=== PATIENT | male | born 1940 | race Caucasian/White ===

== ENCOUNTER → 2019-04-20 12:49 | Outpatient (POV) | payer MEDICARE, OTHER, SELFPAY | PROVIDERS: Visit Provider Specialist | DX: M79.601 Pain in right arm (principal) | CPT/HCPCS: 95886; 95908 ==

== ENCOUNTER → 2019-05-06 11:17 | Outpatient (CLI) | payer MEDICARE, OTHER, SELFPAY ==
[2019-05-06 11:37] LABS: Basophils # 0.1 K/mm3 (0-0.2); Basophils % 0.8 % (0.1-2.0); Eosinophils # 0.1 K/mm3 (0.0-0.4); Eosinophils % 1.6 % (0.1-12.0); Hematocrit 40.6 % (42.0-52.0); Hemoglobin 13.5 g/dL (14.1-18.0); Lymphocytes # 1.9 K/mm3 (0.7-4.5); Lymphocytes % 25.4 % (10-50); Mean Corpuscular HGB Conc 33.3 g/dL (31.8-35.4); Mean Corpuscular Hemoglobin 29.3 pg (27.0-31.2); Mean Corpuscular Volume 88.2 fl (80-94); Mean Platelet Volume 9.4 fl (7.4-10.4); Monocytes # 0.5 K/mm3 (0.1-1.0); Monocytes % 7.3 % (1.7-9.3); Neutrophils # 4.8 K/mm3 (1.8-7.8); Platelet Count 305 K/mm3 (142-424); Red Cell Distribution Width 13.7 % (11.5-17.5); White Blood Count 7.3 K/mm3 (4.8-10.8)
[2019-05-06 12:26] LABS: Hemoglobin A1C 6.9 % (0.0-7.0)
[2019-05-06 13:25] LABS: Erythrocyte Sedimentation Rate 17 mm/hr (0-20)
[2019-05-06 13:33] LABS: Alanine Aminotransferase 22 U/L (12-78); Albumin Level 3.6 gm/dL (3.4-5.0); Albumin/Globulin Ratio 1.1 (1.1-1.8); Alkaline Phosphatase 56 U/L (46-116); Anion Gap 15.3 mEq/L (5-15); Aspartate Amino Transferase 16 U/L (15-37); Bilirubin,Total 0.5 mg/dL (0.2-1.0); Blood Urea Nitrogen 21 mg/dL (7-18); Calcium 8.7 mg/dL (8.5-10.1); Carbon Dioxide 25 mmol/L (21.0-32.0); Chloride 105 mmol/L (98-107); Creatinine,Serum 1.03 mg/dL (0.70-1.30); Estimated Glomerular Filt Rate 70 ml/min (>60); GFR (African American) 85 ML/MIN (>60); Globulin 3.4 gm/dl (1.3-3.2); Glucose 106 mg/dL (74-106); Potassium 4.3 mmoL/L (3.5-5.1); Sodium 141 mmol/L (136-145)
[2019-05-06 13:40] LABS: C-Reactive Protein < 0.2 mg/dL (0.0-0.9)
== END ==
PROVIDERS: Visit Provider Nurse Practitioner
DX: L02.611 Cutaneous abscess of right foot (principal); L03.031 Cellulitis of right toe; E11.8 Type 2 diabetes mellitus with unspecified complications; Z79.84 Long term (current) use of oral hypoglycemic drugs
CPT/HCPCS: 36415; 80053; 83036; 85025; 85651; 86140

== ENCOUNTER → 2019-07-01 11:51 | Outpatient (CLI) | payer MEDICARE, OTHER, SELFPAY | PROVIDERS: Visit Provider Nurse Practitioner | DX: E11.8 Type 2 diabetes mellitus with unspecified complications (principal) | CPT/HCPCS: 87070; 87077; 87186; 87205 ==

== ENCOUNTER 2019-11-23 13:03 | Emergency (ER) | payer MEDICARE, OTHER, SELFPAY ==
--- NOTE | 2019-11-23 13:03 | ECG_ITS ---
APPROVED REPORT Exam: Resting ECG HR:74 bpm ECG Measurements Heart Rate 74 AXES ID 232 P 71 QRSd 102 QRS 64 QT 418 T 91 QTc 463 <Conclusion> Sinus rhythm with 1st degree AV block with premature atrial complexes Minimal voltage criteria for LVH, may be normal variant Nonspecific ST and T wave abnormality Prolonged QT Abnormal ECG Electronically signed by : Kevon Coleman, 11/23/2019 17:46:08
[2019-11-23 13:04] VITALS: BP 211/99; PULSE 66; RESP 18; TEMP 36.8; O2SAT 99; BMI 27.3
--- NOTE | 2019-11-23 13:06 | XR_ITS ---
PROCEDURE: XR CHEST PORTABLE CLINICAL HISTORY: chest pain COMPARISON: CXR1 CHEST-PORTABLE from 12/18/2015 CXR1 CHEST-PORTABLE from 04/13/2016 XR CHEST PORTABLE from 04/03/2019 FINDINGS: There is mild cardiomegaly without failure. There is tortuosity/ectasia of the descending thoracic aorta. The lungs are clear without infiltrates, suspicious nodules, or pleural effusions. Mild degenerative changes of the shoulders IMPRESSION: Cardiomegaly with tortuosity/ectasia of the descending aorta otherwise negative Dictated by: Neto Saba MD 11/23/2019 13:19 Electronically signed by Neto Saba MD in [place] 11/23/2019 13:19
[2019-11-23 13:18] LABS: Basophils # 0.1 K/mm3 (0-0.2); Basophils % 0.7 % (0.1-2.0); Eosinophils # 0.2 K/mm3 (0.0-0.4); Eosinophils % 2.5 % (0.1-12.0); Hematocrit 41.4 % (42.0-52.0); Hemoglobin 13.9 g/dL (14.1-18.0); Lymphocytes # 3.8 K/mm3 (0.7-4.5); Lymphocytes % 45.5 % (10-50); Mean Corpuscular HGB Conc 33.5 g/dL (31.8-35.4); Mean Corpuscular Hemoglobin 29.6 pg (27.0-31.2); Mean Corpuscular Volume 88.3 fl (80-94); Mean Platelet Volume 8.5 fl (7.4-10.4); Monocytes # 0.5 K/mm3 (0.1-1.0); Monocytes % 5.7 % (1.7-9.3); Neutrophils # 3.8 K/mm3 (1.8-7.8); Neutrophils % 45.6 % (37.0-80.0); Platelet Count 330 K/mm3 (142-424); Red Blood Count 4.69 M/mm3 (4.60-6.20); White Blood Count 8.4 K/mm3 (4.8-10.8)
[2019-11-23 13:19] LABS: Chloride 101 mmol/L (98-107); Potassium 4.3 mmoL/L (3.5-5.1); Sodium 138 mmol/L (136-145)
[2019-11-23 13:22] LABS: Anion Gap 16.3 mEq/L (5-15); Blood Urea Nitrogen 18 mg/dl (9-20); Calcium 8.7 mg/dl (8.4-10.2); Carbon Dioxide 25 mmol/L (22.0-30.0); Creatinine Clearance Estimated 71 mL/min (50-200); Estimated Glomerular Filt Rate 82 ml/min (>60); GFR (African American) 99 ML/MIN (>60); Glucose 142 mg/dl (74-100)
[2019-11-23 13:36] LABS: Troponin I < 0.01 ng/ml (0.00-0.034)
[2019-11-23 13:37] VITALS: BP 168/89; PULSE 64; RESP 18; O2SAT 96
[2019-11-23 14:37] VITALS: BP 175/82; PULSE 63; RESP 20; O2SAT 96
--- NOTE | 2019-11-23 16:39 | HMH.EDCP ---
ED Disposition Clinical Impression: Chest pain, Atypical chest pain, Costalchondritis Disposition: Home, Self-Care Condition on Discharge: Good Instructions: DI for Chronic Pain -- Adult Additional Instructions: Please follow-up with primary care. Referrals: Neftaly Henderson MD [Primary Care Provider] - - Critical Care Critical Care Time: No Attestation: On 11/23/19, the high probability of a clinically significant, sudden or life threatening deterioration of the following system(s) required my full and direct attention, intervention and personal management. The time I documented below is in addition to time spent performing reported procedures but includes the following listed in this critical care notation. Medical Decision Making - Medical Records Medical records reviewed: Yes: I reviewed the patient's medical records. - Samson Inquiry Pt receiving controlled substance: No Vital Signs: 11/23/19 13:04 11/23/19 13:37 11/23/19 14:37 Temperature 98.2 F Temperature Source Oral Pulse Rate [Right] 66 64 63 Respiratory Rate 18 18 20 Blood Pressure [Right Arm] 211/99 H 168/89 H 175/82 H Blood Pressure Mean [Right Arm] 136 115 113 Blood Pressure Source [Right Arm] Automatic Cuff Blood Pressure Position [Right Arm] Supine 02 Sat by Pulse Oximetry 99 96 96 Oxygen Delivery Method Room Air Room Air - Lab Data Lab results reviewed: Yes: I reviewed the patient's lab results. Lab Results 11/23/19 13:05: WBC 8.4, RBC 4.69, Hgb 13.9 L, Hct 41.4 L, MCV 88.3, MCH 29.6, MCHC 33.5, RDW 14.0, Plt Count 330, MPV 8.5, Neut % (Auto) 45.6, Lymph % (Auto) 45.5, [place] % (Auto) 5.7, Eos % (Auto) 2.5, Baso % (Auto) 0.7, Neut # (Auto) 3.8, Lymph # (Auto) 3.8, [place] # (Auto) 0.5, Eos # (Auto) 0.2, Baso # (Auto) 0.1 11/23/19 13:05: Sodium 138, Potassium 4.3, Chloride 101, Carbon Dioxide 25, Anion Gap 16.3 H, BUN 18, Creatinine 0.90, Estimated Creat Clear 71, Estimated GFR 82, Est GFR ( Amer) 99, Glucose 142 H, Calcium 8.7, Troponin I < 0.01 Result diagrams: 11/23/19 13:05 11/23/19 13:05 Orders (Tests/Meds): ORDERS Category Date Time Status Troponin I Q3H Lab 11/23/19 16:14 Received Troponin I Q3H Lab 11/23/19 19:15 Ordered - Radiology Data #1 Image(s): Chest Preliminary Findings: Normal/NAD - ECG Data Tracing #1 I reviewed this ECG and interpreted as documented below: Normal Sinus Rhythm: Yes Chest Pain HPI - General Chief Complaint: Chest Pain Stated Complaint: chest pain Time Seen by Provider: 11/23/19 16:39 Mode of Arrival: Ambulatory Source of Information: Patient Limitations: No Limitations Description of Symptoms (Recalled from ER Triage Doc. by RN): C/O left sided CP that began 30 minutes ago, denies radiation or any associated s/s. - History of Present Illness HPI narrative: A 78-year-old gentleman presents to the ED with some left-sided upper abdominal pain and left-sided chest pain. Patient states that this pain is been going on for quite some time but does state that it progressively got worse today and is why he presented here to the emergency department. Patient denies any overt left-sided chest pain or shortness of breath or diaphoresis or radiation. He states that the pain is localized to that area and he classifies this pain as a sharp sensation. He states the pain is about 4 out of 10. He states exacerbating factors include increasing intrathoracic and increasing intra-abdominal pressures. He also states pushing movements causes this pain and reproduces his pain as well. Patient also states that the alleviating factors include rest.Patient denies any recent cough or shortness of breath, patient denies any sore throat or headache, patient denies any loss of taste or smell, patient denies any malaise or fatigue, patient denies any abdominal pain nausea vomiting or diarrhea. - Related Data Home Medications Medication Instructions Recorded Confirmed
[2019-11-23 16:50] VITALS: BP 185/90; PULSE 66; RESP 16; TEMP 36.9; O2SAT 96
[2019-11-23 17:05] LABS: Troponin I < 0.01 ng/ml (0.00-0.034)
== END 2019-11-23 16:52 | disposition home or self-care (01) ==
PROVIDERS: Emergency Provider Family Medicine; PCP Family Medicine
DX: M94.0 Chondrocostal junction syndrome [Tietze] (principal); E11.9 Type 2 diabetes mellitus without complications; E78.5 Hyperlipidemia, unspecified; I10 Essential (primary) hypertension; Z79.899 Other long term (current) drug therapy
CPT/HCPCS: 71045; 80048; 84484; 85025; 93005; 99283; 99284

== ENCOUNTER 2020-04-24 12:21 | Emergency (ER) | payer MEDICARE, OTHER, SELFPAY ==
[2020-04-24 12:37] VITALS: BP 185/86; PULSE 66; RESP 17; TEMP 36.6; O2SAT 99; BMI 27.2
--- NOTE | 2020-04-24 12:44 | XR_ITS ---
PROCEDURE: XR CHEST PORTABLE CLINICAL HISTORY: dizziness Dizziness and weakness COMPARISON: CR CXR1 CHEST-PORTABLE from 04/13/2016 CR XR CHEST PORTABLE from 04/03/2019 CR XR CHEST PORTABLE from 11/23/2019 FINDINGS: The cardiomediastinal silhouette and pulmonary vascularity are within normal limits. The lungs are clear without infiltrates, suspicious nodules, or pleural effusions. No acute bony abnormalities. IMPRESSION: No acute findings. Dictated by: Neto Saba MD 04/25/2020 05:36 Neto Saba MD in [place] 04/25/2020 05:36
--- NOTE | 2020-04-24 12:47 | HMH.EDGENADL ---
ED Disposition Clinical Impression: Vertigo Disposition: Home, Self-Care Condition on Discharge: Good Instructions: DI for Vertigo Additional Instructions: Antivert as prescribed. Your primary care provider tomorrow for follow-up. Return if severe dizziness, unable to walk, persistent vomiting, or any new symptoms such as difficulty with vision, speaking, or numbness or weakness of arms or legs. Prescriptions: Meclizine HCl [Antivert 25mg tablet] 25 mg PO TIDP PRN #15 tab PRN Reason: Vertigo Prescription Printed Referrals: Neftaly Henderson MD [Primary Care Provider] - - Critical Care Critical Care Time: No Attestation: On , the high probability of a clinically significant, sudden or life threatening deterioration of the following system(s) required my full and direct attention, intervention and personal management. The time I documented below is in addition to time spent performing reported procedures but includes the following listed in this critical care notation. Medical Decision Making - Samson Inquiry Pt receiving controlled substance: No Vital Signs: 04/24/20 12:37 04/24/20 12:55 04/24/20 14:25 Temperature 97.8 F Temperature Source Oral Pulse Rate [Right Radial] 66 57 L 63 Respiratory Rate 17 20 16 Blood Pressure [Right Arm] 185/86 H 187/90 H 206/98 H Blood Pressure Mean [Right Arm] 119 122 134 Blood Pressure Source [Right Arm] Automatic Cuff Automatic Cuff Blood Pressure Position [Right Arm] Sitting Sitting 02 Sat by Pulse Oximetry 99 99 99 Oxygen Delivery Method Room Air Room Air 04/24/20 15:14 04/24/20 15:30 Temperature Temperature Source Pulse Rate [Right Radial] 58 L 83 Respiratory Rate 18 23 Blood Pressure [Right Arm] 195/92 H 195/92 H Blood Pressure Mean [Right Arm] 126 126 Blood Pressure Source [Right Arm] Automatic Cuff Automatic Cuff Blood Pressure Position [Right Arm] Sitting Sitting 02 Sat by Pulse Oximetry 99 93 L Oxygen Delivery Method Room Air - Lab Data Lab Results 04/24/20 12:00: WBC 8.0, RBC 4.76, Hgb 13.5 L, Hct 43.0, MCV 90.3, MCH 28.4, MCHC 31.5 L, RDW 13.6, Plt Count 313, MPV 8.6, Neut % (Auto) 49.3, Lymph % (Auto) 40.5, [place] % (Auto) 7.2, Eos % (Auto) 2.2, Baso % (Auto) 0.8, Neut # (Auto) 3.9, Lymph # (Auto) 3.2, [place] # (Auto) 0.6, Eos # (Auto) 0.2, Baso # (Auto) 0.1 04/24/20 12:00: Sodium 140, Potassium 4.5, Chloride 105, Carbon Dioxide 27, Anion Gap 12.5, BUN 27 H, Creatinine 1.00, Estimated Creat Clear 70, Estimated GFR 72, Est GFR ( Amer) 87, Glucose 139 H, Calcium 9.4, Total Bilirubin 0.5, AST 26, ALT 17, Alkaline Phosphatase 78, Troponin I < 0.01, Total Protein 7.7, Albumin 4.3, Globulin 3.4 H, Albumin/Globulin Ratio 1.3 04/24/20 15:23: Troponin I < 0.01 Result diagrams: 04/24/20 12:00 04/24/20 12:00 Orders (Tests/Meds): ED MEDICATIONS Discontinued Medications Generic Name Dose Route Start Last Admin Trade Name Freq PRN Reason Stop Dose Admin Iopamidol 100 ml 04/24/20 13:35 04/24/20 13:36 Iopamidol-370 (76%);100ml Bottle IV 04/24/20 13:36 100 ml ONCE ONE Administration Meclizine HCl 25 mg 04/24/20 13:41 04/24/20 14:16 Meclizine 25mg Tablet PO 04/24/20 13:42 25 mg ONCE ONE Administration Sodium Chloride 50 ml 04/24/20 13:35 04/24/20 13:36 0.9 % Sodium Chloride 50 Ml Vial IV 04/24/20 13:36 50 ml ONCE ONE Administration Sodium Chloride 10 ml 04/24/20 13:35 04/24/20 13:36 Sodium Chloride 0.9% 10ml Syr (Rad Only) IV 04/24/20 13:36 10 ml ONCE ONE Administration ORDERS Category Date Time Status CT angio head Stat Cat Scan 04/24/20 13:[address] angio neck Stat Cat Scan 04/24/20 13:[address] head/brain wo con Stat Cat Scan 04/24/20 13:08 Taken XR chest portable Stat Exams 04/24/20 12:44 Taken Troponin I Q3H Lab 04/24/20 18:45 Ordered Urinalysis and Microscopic Stat Lab 04/24/20 15:37 Ordered - Radiology Data #1 Image(s): Chest Image Reviewed: Yes
[2020-04-24 12:55] VITALS: BP 187/90; PULSE 57; RESP 20; O2SAT 99
[2020-04-24 12:55] LABS: Basophils # 0.1 K/mm3 (0-0.2); Basophils % 0.8 % (0.1-2.0); Eosinophils # 0.2 K/mm3 (0.0-0.4); Eosinophils % 2.2 % (0.1-12.0); Hemoglobin 13.5 g/dL (14.1-18.0); Lymphocytes # 3.2 K/mm3 (0.7-4.5); Lymphocytes % 40.5 % (10-50); Mean Corpuscular HGB Conc 31.5 g/dL (31.8-35.4); Mean Corpuscular Hemoglobin 28.4 pg (27.0-31.2); Mean Corpuscular Volume 90.3 fl (80-94); Mean Platelet Volume 8.6 fl (7.4-10.4); Monocytes # 0.6 K/mm3 (0.1-1.0); Monocytes % 7.2 % (1.7-9.3); Neutrophils # 3.9 K/mm3 (1.8-7.8); Neutrophils % 49.3 % (37.0-80.0); Platelet Count 313 K/mm3 (142-424); Red Blood Count 4.76 M/mm3 (4.60-6.20); Red Cell Distribution Width 13.6 % (11.5-17.5)
[2020-04-24 12:58] LABS: Chloride 105 mmol/L (98-107); Sodium 140 mmol/L (136-145)
[2020-04-24 12:59] LABS: Potassium 4.5 mmoL/L (3.5-5.1)
[2020-04-24 13:01] LABS: Alanine Aminotransferase 17 U/L (12-78); Albumin Level 4.3 g/dl (3.5-5.0); Albumin/Globulin Ratio 1.3 (1.1-1.8); Alkaline Phosphatase 78 U/L (38-126); Anion Gap 12.5 mEq/L (5-15); Aspartate Amino Transferase 26 U/L (17-59); Bilirubin,Total 0.5 mg/dl (0.2-1.3); Blood Urea Nitrogen 27 mg/dl (9-20); Carbon Dioxide 27 mmol/L (22.0-30.0); Creatinine Clearance Estimated 70 mL/min (50-200); Estimated Glomerular Filt Rate 72 ml/min (>60); GFR (African American) 87 ML/MIN (>60); Globulin 3.4 g/dL (1.3-3.2); Total Protein,Serum 7.7 g/dl (6.3-8.2)
[2020-04-24 13:02] LABS: Calcium 9.4 mg/dl (8.4-10.2); Glucose 139 mg/dl (74-100)
--- NOTE | 2020-04-24 13:05 | ECG_ITS ---
APPROVED REPORT Exam: Resting ECG HR:55 bpm ECG Measurements Heart Rate 55 AXES MS 250 P 61 QRSd 104 QRS 52 QT 484 T 78 QTc 463 Conclusion Sinus bradycardia with 1st degree AV block with premature supraventricular complexes Otherwise normal ECG Electronically signed by : Neftaly Jain, 04/26/2020 19:38:31
--- NOTE | 2020-04-24 13:08 | CT_ITS ---
PROCEDURE: CT HEAD/BRAIN WO CON CLINICAL INDICATION: vertigo Vertigo, weakness COMPARISON: CT CT HEAD/BRAIN WO CON from 04/03/2019 TECHNIQUE: Axial images obtained. All CT scans at the facility use one or more dose reduction, viz: automated exposure control, ma/kV adjustment per patient size (including targeted exams where dose is matched to indication, i.e. head), or iterative reconstruction technique. FINDINGS: No midline shift, mass effect, intracranial hemorrhage, hydrocephalus, or extra-axial fluid collection is evident. There is generalized atrophy with hypoattenuation of the periventricular white matter consistent with microangiopathic changes. The calvarium has an unremarkable appearance. No mastoid effusion. No sinus air-fluid level. IMPRESSION: No acute intracranial finding Dictated by: Neto Saba MD 04/25/2020 07:25 Neto Saba MD in [place] 04/25/2020 07:25
--- NOTE | 2020-04-24 13:09 | CT_ITS ---
Procedure: CT ANGIO NECK CT ANGIO HEAD CLINICAL HISTORY: vertigo COMPARISON: CT CT ANGIO HEAD from 04/24/[address] HEAD/BRAIN WO CON from 04/24/2020 TECHNIQUE: IV Contrast: 100ml Isovue 370 Axial images obtained with sagittal and coronal reformats. All CT scans at the facility use one or more dose reduction, viz: automated exposure control, ma/kV adjustment per patient size (including targeted exams where dose is matched to indication, i.e. head), or iterative reconstruction technique. FINDINGS: CTA neck. No stenosis dissection or occlusion of the carotids. The right vertebral is hypoplastic with dominant left vertebral. CTA head: No stenosis or occlusion. There is mild ectasia of the cavernous portion of the carotids with some calcific plaque but no significant stenosis. No aneurysm or arteriovenous malformation or major intracranial occlusive process. There is some minimal plaque within the carotid bulbs without stenosis. No enhancing lesions.. There is generalized atrophy with hypoattenuation of the periventricular white matter consistent with microangiopathic changes. There is some increased density in the left fossa Rosenmuller which may be due to nondistention. Direct visualization may confirm. IMPRESSION: No evidence of stenosis or occlusion. No aneurysm or dissection. Dictated by: Neto Saba MD 04/25/2020 07:33 Neto Saba MD in [place] 04/25/2020 07:33
[2020-04-24 13:16] LABS: Troponin I < 0.01 ng/ml (0.00-0.034)
--- NOTE | 2020-04-24 13:16 | PC.NURSE ---
Patient going to radiology
[2020-04-24 14:25] VITALS: BP 206/98; PULSE 63; RESP 16; O2SAT 99
[2020-04-24 14:59] LABS: Microscopic, Urine URINE MICROSCOPIC (MICROSCOPIC)
[2020-04-24 15:14] VITALS: BP 195/92; PULSE 58; RESP 18; O2SAT 99
[2020-04-24 15:30] VITALS: BP 195/92; PULSE 83; RESP 23; O2SAT 93
[2020-04-24 15:58] LABS: Troponin I < 0.01 ng/ml (0.00-0.034)
[2020-04-24 16:37] VITALS: BP 185/87; PULSE 83; RESP 15; TEMP 36.6; O2SAT 98
[2020-04-24 18:48] LABS: Appearance,Urine CLEAR (Clear); Bilirubin,Urine Negative (Negative); Blood, Urine Negative (Negative); Color,Urine YELLOW (Yellow); Glucose,Urine (UA) Negative (Negative); Ketones,Urine Negative (Negative); Leukocyte Esterase,Urine Negative (Negative); Nitrate,Urine Negative (Negative); Protein,Urine Negative (Negative); Specific Gravity, Urine 1.015 (1.005-1.030); Urobilinogen,Urine 0.2 EU/dl (0.2)
== END 2020-04-24 16:38 | disposition home or self-care (01) ==
PROVIDERS: Emergency Provider Emergency Medicine; PCP Family Medicine
DX: R42 Dizziness and giddiness (principal); I10 Essential (primary) hypertension; E78.5 Hyperlipidemia, unspecified; E11.9 Type 2 diabetes mellitus without complications; Z79.84 Long term (current) use of oral hypoglycemic drugs; Z79.899 Other long term (current) drug therapy
CPT/HCPCS: 70450; 70496; 70498; 71045; 80053; 81001; 84484; 85025; 93005; 99283; Q9967

== ENCOUNTER 2020-06-07 09:02 | Emergency (ER) | payer MEDICARE, OTHER, SELFPAY ==
[2020-06-07 09:10] VITALS: BP 107/76; PULSE 77; RESP 19; TEMP 36.3; O2SAT 96; BMI 27.2
--- NOTE | 2020-06-07 09:39 | HMH.EDUTC ---
[facility] [place] Disposition Clinical Impression: Exposure to COVID-19 virus Disposition: Home, Self-Care Condition on Discharge: Good Instructions: DI for COVID-19 (Suspected or Confirmed ), Coronavirus Disease 2019, Preventing the Spread of Coronavirus Discharge Instructions Additional Instructions: *Monitor Temp, Over the counter Motrin or Tylenol as directed/as needed Tylenol every 4 hours and Motrin every 6 hours (as long as your family doctor has told you that you can take it) for fever or pain. and straight to ER if unable to lower temp less than 101.0 after medication given Follow up IMMEDIATELY for new or worsening symptoms or no Noticeable improvement over the next 48-72 hours. 911 for difficulty breathing or swallowing You were tested for today for COVID19 your test result should be back in the next 24-48 hours, you may call to the [facility] to see if your test results are back in the next 48 hours [phone] [facility] hours are 9am-9pm You was given a handout with instructions for Self Quarantine and Self isolation for while you wait on test results and what to do if they are positive If you are positive the Health Dept will be contacting you also Referrals: Neftaly Henderson MD [Primary Care Provider] - As needed Time of Disposition: 09:41 Medical Decision Making - Samson Inquiry Pt receiving controlled substance: No Samson was queried for this patient: No Vital Signs: 06/07/20 09:10 Temperature 97.4 F L Temperature Source Oral Pulse Rate [Right Brachial] 77 Respiratory Rate 19 Blood Pressure [Right Arm] 107/76 L Blood Pressure Mean [Right Arm] 86 Blood Pressure Source [Right Arm] Automatic Cuff Blood Pressure Position [Right Arm] Sitting 02 Sat by Pulse Oximetry 96 Oxygen Delivery Method Room Air Orders (Tests/Meds): ORDERS Category Date Time Status Covid-19 Nasal PCR Sendout P&C Stat Lab 06/07/20 09:09 Ordered [facility] HPI - General Stated complaint: Covid test Time Seen by Provider: 06/07/20 09:39 Mode of Arrival: Ambulatory Source of Information: Patient Limitations: No Limitations Description of Symptoms (Recalled from Triage Doc. by RN): COVID D/T EXPOSURE; DENIES SYMPTOMS HEENT Symptoms (Recalled from RN notes): No Resp Symptoms (Recalled from RN notes): No Skin Symptoms (Recalled from RN notes): No MS Symptoms (Recalled from RN notes): No Functional Status (Recalled from RN notes): WNL - History of Present Illness Provider Complaint: Patient states that he was recently around someone that has since tested positive for COVID States that he is not having any symptoms but wanted to get tested - Related Data Home Medications Medication Instructions Recorded Confirmed Atorvastatin Calcium [Lipitor 10mg 10 mg PO DAILY 04/03/19 07/15/19 Tab] Loratadine [Claritin 10mg 10 mg PO DAILY 04/03/19 07/15/19 Tablet] Metformin HCl [Metformin 1000mg 1,000 mg PO BID 04/03/19 07/15/19 Tablets] Omeprazole 20 mg PO DAILY 04/03/19 07/15/19 atenoloL [Atenolol 50mg Tab] 50 mg PO DAILY 04/03/19 07/15/19 glipiZIDE [Glipizide] 10 mg PO DAILY 04/03/19 07/15/19 lisinopril 10 mg tablet 10 mg PO tab 05/06/19 07/15/19 Previous Rx's Medication Instructions Recorded clindamycin HCl 300 mg capsule 300 mg PO TID 14 Days #42 cap 07/01/19 mupirocin 2 % topical ointment 1 applic TOPICAL TID #15 g 07/01/19 Meclizine HCl [Antivert 25mg 25 mg PO TIDP PRN #15 tab 04/24/20 tablet] Allergies Allergy/AdvReac Type Severity Reaction Status Date / Time No Known Allergies Allergy Verified 04/24/20 12:43 - Worker's Comp Is this a Worker's Comp case?: No [facility] History - Hepatitis A Screen Drug use history?: No High risk sexual behaviors?: No History of sexually transmitted infection?: No Currently employed?: No Childcare worker?: No Do you have indoor plumbing?: Yes Do you have electricity?: Yes Attestation statement:: This patient has been screened for Hepatitis A risk factors. I h
[2020-06-07 09:41] VITALS: BP 107/76; PULSE 77; RESP 19; TEMP 36.3; O2SAT 96
[2020-06-08 08:43] LABS: Covid-19 Nasal PCR Sendout P&C NEGATIVE
== END 2020-06-07 09:48 | disposition home or self-care (01) ==
PROVIDERS: Emergency Provider Nurse Practitioner; PCP Family Medicine
DX: Z20.822 Contact with and (suspected) exposure to COVID-19 (principal); I10 Essential (primary) hypertension; E78.5 Hyperlipidemia, unspecified; E11.9 Type 2 diabetes mellitus without complications; Z87.891 Personal history of nicotine dependence; Z79.899 Other long term (current) drug therapy; Z79.84 Long term (current) use of oral hypoglycemic drugs
CPT/HCPCS: G0463; 99202; U0004

== ENCOUNTER 2021-05-18 12:52 | Emergency (ER) | payer OTHER, MEDICARE, SELFPAY ==
[2021-05-18 13:32] VITALS: BP 172/93; RESP 18; TEMP 36.4; O2SAT 100; BMI 27.2
[2021-05-18 13:38] LABS: Basophils # 0.1 K/mm3 (0-0.2); Basophils % 0.8 % (0.1-2.0); Eosinophils # 0.2 K/mm3 (0.0-0.4); Eosinophils % 3.8 % (0.1-12.0); Hematocrit 43.2 % (42.0-52.0); Hemoglobin 13.9 g/dL (14.1-18.0); Lymphocytes # 2.8 K/mm3 (0.7-4.5); Lymphocytes % 44.4 % (10-50); Mean Corpuscular HGB Conc 32.1 g/dL (31.8-35.4); Mean Corpuscular Hemoglobin 29.8 pg (27.0-31.2); Mean Corpuscular Volume 92.9 fl (80-94); Mean Platelet Volume 9.9 fl (7.4-10.4); Monocytes # 0.4 K/mm3 (0.1-1.0); Monocytes % 5.6 % (1.7-9.3); Neutrophils # 2.9 K/mm3 (1.8-7.8); Neutrophils % 45.4 % (37.0-80.0); Platelet Count 327 K/mm3 (142-424); Red Blood Count 4.65 M/mm3 (4.60-6.20); Red Cell Distribution Width 14.2 % (11.5-17.5); White Blood Count 6.3 K/mm3 (4.8-10.8)
[2021-05-18 13:48] LABS: Chloride 103 mmol/L (98-107); Potassium 3.9 mmoL/L (3.5-5.1); Sodium 140 mmol/L (136-145)
[2021-05-18 13:50] LABS: Blood Urea Nitrogen 36 mg/dl (9-20); Creatinine Clearance Estimated 53 mL/min (50-200); Estimated Glomerular Filt Rate 53 ml/min (>60); GFR (African American) 64 ML/MIN (>60)
[2021-05-18 13:51] LABS: Alanine Aminotransferase 18 U/L (12-78); Albumin Level 4.4 g/dl (3.5-5.0); Albumin/Globulin Ratio 1.4 (1.1-1.8); Alkaline Phosphatase 67 U/L (38-126); Anion Gap 15.9 mEq/L (5-15); Aspartate Amino Transferase 28 U/L (17-59); Bilirubin,Total 0.5 mg/dl (0.2-1.3); Calcium 8.7 mg/dl (8.4-10.2); Carbon Dioxide 25 mmol/L (22.0-30.0); Globulin 3.1 g/dL (1.3-3.2); Glucose 221 mg/dl (74-100); Total Protein,Serum 7.5 g/dl (6.3-8.2)
[2021-05-18 13:54] LABS: Magnesium 0.9 mg/dl (1.6-2.3)
--- NOTE | 2021-05-18 13:55 | PC.NURSE ---
mag level 0.9 called to david michael
[2021-05-18 14:07] LABS: Acetone, Serum (Rapid) None Detected (None Detect)
--- NOTE | 2021-05-18 14:08 | PC.NURSE ---
Took a BS finger stick was 189 blood sugar
--- NOTE | 2021-05-18 14:08 | HMH.EDGENADL ---
ED Disposition Clinical Impression: Peripheral neuropathy, Uncontrolled diabetes mellitus with hyperglycemia, Hypomagnesemia Disposition: Home, Self-Care Condition on Discharge: Good Instructions: Diabetes, General (Alternative Therapy), DI for Peripheral Neuropathy Additional Instructions: Please follow up with your primary care physician for further management in 2-3 days. Please continue to monitor your sugar levels closely. We discussed the importance of glucose/sugar control please discuss with your primary care physician regarding elevated sugars. Please discuss with your primary care physician regarding starting neuropathic medication for your peripheral neuropathy. If worsening symptoms please return to the ED. Referrals: Neftaly Henderson MD [Primary Care Provider] - Time of Disposition: 14:40 - Critical Care Critical Care Time: No Attestation: On 05/18/21, the high probability of a clinically significant, sudden or life threatening deterioration of the following system(s) required my full and direct attention, intervention and personal management. The time I documented below is in addition to time spent performing reported procedures but includes the following listed in this critical care notation. Medical Decision Making - Medical Records Medical records reviewed: Yes: I reviewed the patient's medical records. - Samson Inquiry Pt receiving controlled substance: No Vital Signs: 05/18/21 13:32 05/18/21 14:37 Temperature 97.6 F 98.3 F Temperature Source Oral Oral Pulse Rate 65 Respiratory Rate 18 18 Blood Pressure 145/75 H Blood Pressure [Right Arm] 172/93 H Blood Pressure Mean [Right Arm] 119 Blood Pressure Source Automatic Cuff Blood Pressure Source [Right Arm] Automatic Cuff Blood Pressure Position Supine Blood Pressure Position [Right Arm] Supine 02 Sat by Pulse Oximetry 100 Oxygen Delivery Method Room Air Room Air - Lab Data Lab results reviewed: Yes: I reviewed the patient's lab results. Lab Results 05/18/21 13:17: WBC 6.3, RBC 4.65, Hgb 13.9 L, Hct 43.2, MCV 92.9, MCH 29.8, MCHC 32.1, RDW 14.2, Plt Count 327, MPV 9.9, Neut % (Auto) 45.4, Lymph % (Auto) 44.4, [place] % (Auto) 5.6, Eos % (Auto) 3.8, Baso % (Auto) 0.8, Neut # (Auto) 2.9, Lymph # (Auto) 2.8, [place] # (Auto) 0.4, Eos # (Auto) 0.2, Baso # (Auto) 0.1 05/18/21 13:17: Sodium 140, Potassium 3.9, Chloride 103, Carbon Dioxide 25, Anion Gap 15.9 H, BUN 36 H, Creatinine 1.30 H, Estimated Creat Clear 53, Estimated GFR 53 L, Est GFR ( Amer) 64, Glucose 221 H, Calcium 8.7, Magnesium 0.9 L, Total Bilirubin 0.5, AST 28, ALT 18, Alkaline Phosphatase 67, Total Protein 7.5, Albumin 4.4, Globulin 3.1, Albumin/Globulin Ratio 1.4 05/18/21 13:17: Acetone Level None detected Result diagrams: 05/18/21 13:17 05/18/21 13:17 Medical Decision Narrative: Mr. White is a 80-year-old male with past medical history for uncontrolled diabetes and LE numbness who presents to the emergency department with tingling in his arms bilaterally and associated intermittent periods of dizziness. Patient is afebrile and hemodynamically stable on arrival. Patient has no focal deficits on exam. Differentials to consider but not limited to include; peripheral neuropathy, metabolic/electrolyte derangement, low suspicion for CVA given distribution of symptoms will not investigate further, uncontrolled diabetes. Basic labs, mg remarkable for 1.0 no other electrolyte abnormalities. Upon reassessment patient currently does not have symptoms. Patient is instructed to fu w/ his primary care team for further management regarding this. Patient appropriate for outpatient management. Patient also instructed to drink plenty of fluid and to eat 3 balanced meals a day. Patient discharged in stable condition. General Adult HPI - General Chief complaint: Dizziness Stated complaint: numbness , tingling, dizzines Time Seen by Provider: 05/18/21 13:35 Mode of Arrival: EMS Source o
[2021-05-18 14:37] VITALS: BP 145/75; PULSE 65; RESP 18; TEMP 36.8; O2SAT 99
== END 2021-05-18 14:37 | disposition home or self-care (01) ==
PROVIDERS: Emergency Provider Student in an Organized Health Care Education/Training Program; PCP Family Medicine
DX: G62.9 Polyneuropathy, unspecified (principal); E11.65 Type 2 diabetes mellitus with hyperglycemia; I10 Essential (primary) hypertension; E78.5 Hyperlipidemia, unspecified; Z79.899 Other long term (current) drug therapy
CPT/HCPCS: 80053; 82009; 83735; 85025; 99282

== ENCOUNTER 2021-07-03 17:39 | Emergency (ER) | payer MEDICARE, SELFPAY ==
[2021-07-03 16:53] VITALS: BP 192/100; PULSE 96; RESP 20; TEMP 36.6; O2SAT 98; BMI 25.8
--- NOTE | 2021-07-03 17:06 | XR_ITS ---
PROCEDURE INFORMATION: Exam: XR Right Knee Exam date and time: 07/03/2021 5:06 PM Age: 80 years old Clinical indication: Pain; Knee; Right; Prior surgery; Surgery date: 6+ months; Additional info: Knee pain TECHNIQUE: Imaging protocol: XR Right knee. Views: 1 or 2 views. COMPARISON: No relevant prior studies available. 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 Soft tissues: Normal. 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
--- NOTE | 2021-07-03 17:49 | HMH.EDGENADL ---
ED Disposition Clinical Impression: Knee sprain Disposition: Home, Self-Care Condition on Discharge: Good Instructions: Knee Sprain Additional Instructions: Please follow up with your primary care physician in 2-3 days for further management. May require physical therapy and or further imaging if symptoms persist, please discuss with your primary care team. Please use tylenol and ibuprofen for pain control. Referrals: Neftaly Henderson MD [Primary Care Provider] - - Critical Care Critical Care Time: No Attestation: On 07/03/21, the high probability of a clinically significant, sudden or life threatening deterioration of the following system(s) required my full and direct attention, intervention and personal management. The time I documented below is in addition to time spent performing reported procedures but includes the following listed in this critical care notation. Medical Decision Making - Medical Records Medical records reviewed: Yes: I reviewed the patient's medical records. - Samson Inquiry Pt receiving controlled substance: No Vital Signs: 07/03/21 16:53 07/03/21 18:52 Temperature 98 F 98 F Temperature Source Oral Oral Pulse Rate 78 Pulse Rate [Radial] 96 H Respiratory Rate 20 16 Blood Pressure 112/78 Blood Pressure [Right Radial Artery] 192/100 H Blood Pressure Mean [Right Radial Artery] 130 Blood Pressure Position Sitting Blood Pressure Position [Right Radial Artery] Sitting 02 Sat by Pulse Oximetry 98 Oxygen Delivery Method Room Air Room Air - Lab Data Lab results reviewed: Yes: I reviewed the patient's lab results. Orders (Tests/Meds): ED MEDICATIONS Discontinued Medications Generic Name Dose Route Start Last Admin Trade Name Freq PRN Reason Stop Dose Admin Acetaminophen 500 mg 07/03/21 17:06 07/03/21 18:17 Acetaminophen 500mg Tab PO 07/03/21 17:07 500 mg ONCE ONE Administration Medical Decision Narrative: Miss White is a 80 yo male w/ no significant PMH who presents ot the ED for isolated (R) knee pain no inciting trauma. Patient is neurovascualrly intact and hemodynamically stable on arrival. Physical exam no overyling skin changes, full ROM, no significant swelling noted. Patient able to bear weight during ED stay. Low suspicion for septic joint given patient has no infectioys sx and knee is well appearing with no obvious signs of infection. XR of the knee is obtained which shows no significant effusion and no acute fracatures or dislocation. Hardware from prior surgery in place. Patient is given tylenol for pain control and informed to fu w/ his pcp in clinic. Patient instructed if symptoms don't improve he may require physical therapy or further imaging such as MR to be discusswed w/ his PCP. Patient is discharged in stable condition. Patient instructed to return if swelling, overlying skin changes, warmth to touch, loss of ROM or any other concerning sx occur. General Adult HPI - General Chief complaint: PAIN Stated complaint: Right knee pain Time Seen by Provider: 07/03/21 17:40 Mode of Arrival: EMS Limitations: No Limitations Description of Symptoms (Recalled from ER Triage Doc. by RN): TO ED PER SQUAD WITH C/O RT KNEE PAIN STATES HE HAS BEEN UNABLE TO BEAR WEIGHT RT LEG DUE TO PAIN. PT DENIES ANY INJURY FEVER, CHILL, NAUSEA, VOMITING - History of Present Illness complaint: knee pain Onset (ago): day(s) Location: lower extremity Radiation: non-radiation Severity: moderate Severity scale (1-10): 5 Quality: aching Consistency: constant Relieving factors: none Exacerbating factors: movement Associated symptoms: denies other symptoms Treatments prior to arrival: none - Related Data Home Medications Medication Instructions Recorded Confirmed Atorvastatin Calcium [Lipitor 10mg 10 mg PO DAILY 04/03/19 05/01/21 Tab] Loratadine [Claritin 10mg 10 mg PO DAILY 04/03/19 05/01/21 Tablet] Metformin HCl [Metformin 1000mg 1,000 mg P
[2021-07-03 18:52] VITALS: BP 112/78; PULSE 78; RESP 16; TEMP 36.6; O2SAT 98
== END 2021-07-03 18:54 | disposition home or self-care (01) ==
PROVIDERS: Emergency Provider Student in an Organized Health Care Education/Training Program; PCP Family Medicine
DX: S83.91XA Sprain of unspecified site of right knee, initial encounter (principal); I10 Essential (primary) hypertension; E78.5 Hyperlipidemia, unspecified; E11.40 Type 2 diabetes mellitus with diabetic neuropathy, unspecified; M19.90 Unspecified osteoarthritis, unspecified site; E66.3 Overweight; Z20.822 Contact with and (suspected) exposure to COVID-19; Z79.82 Long term (current) use of aspirin; Z79.84 Long term (current) use of oral hypoglycemic drugs; Z79.899 Other long term (current) drug therapy; Z96.651 Presence of right artificial knee joint; Z68.25 Body mass index [BMI] 25.0-25.9, adult; Z87.891 Personal history of nicotine dependence
CPT/HCPCS: 73560; 99282; 99283

== ENCOUNTER 2021-07-12 18:21 | Emergency (ER) | payer MEDICARE, SELFPAY ==
[2021-07-12 18:21] VITALS: BP 190/82; PULSE 69; RESP 18; TEMP 36.4; O2SAT 98; BMI 27.2
[2021-07-12 19:05] VITALS: BMI 27.2
--- NOTE | 2021-07-12 19:11 | CT_ITS ---
PROCEDURE INFORMATION: Exam: CT Abdomen And Pelvis With Contrast Exam date and time: 07/12/2021 7:11 PM Age: 80 years old Clinical indication: Other: Dark stools, diarrhea TECHNIQUE: Imaging protocol: Computed tomography of the abdomen and pelvis with contrast. Radiation optimization: All CT scans at this facility use at least one of these dose optimization techniques: automated exposure control; mA and/or kV adjustment per patient size (includes targeted exams where dose is matched to clinical indication); or iterative reconstruction. Contrast material: ISOVUE; Contrast volume: 75 ml; Contrast route: IV; COMPARISON: ABDPELW/O CT ABD PELVIS W/O CONTRAST 04/30/2015 3:11 PM FINDINGS: Lungs: Mild scarring and atelectasis in the lower lungs. Heart: Cardiomegaly. Coronary artery disease. Liver: Normal. No mass. Gallbladder and bile ducts: Cholelithiasis. Pancreas: Moderate to advanced pancreatic atrophy. Spleen: Normal. No splenomegaly. Adrenal glands: Normal. No mass. Kidneys and ureters: Low attenuation renal lesions measuring up to 4.9 cm in diameter are incompletely characterized, but are likely cysts. No followup imaging is warranted. Stomach and bowel: Moderate to severe sigmoid diverticulosis without diverticulitis. Nonspecific bowel wall thickening of portions of small bowel and colon. Mild sigmoid diverticulosis without diverticulitis. Appendix: Unremarkable appendix. Intraperitoneal space: Unremarkable. No free air. No significant fluid collection. Vasculature: Moderate atherosclerotic changes of the arteries. Lymph nodes: Unremarkable. No enlarged lymph nodes. Urinary bladder: Unremarkable as visualized. Reproductive: The right testicle is retracted. Bones/joints: Severe degenerative changes of the hips. Soft tissues: Postsurgical appearance of the inguinal canals. Thickening of the left rectus sheath image 74 series 3 is favored to be due to a small hematoma. Other findings: Stigmata of old granulomatous disease. IMPRESSION: 1. Nonspecific bowel wall thickening of portions of small bowel and colon. This could correlate with enterocolitis. 2. Thickening of the left rectus sheath image 74 series 3 is favored to be due to a small hematoma. 3. Cholelithiasis. COMMENTS: Consistent with the [employer]'s Incidental Findings Committee white paper (J Am Bebe Radiol 2018): Any incidental renal lesion less than 1 cm or classified as too small to characterize, or any incidental cystic renal lesion characterized as simple-appearing, is likely benign. No follow-up imaging is recommended for these lesions per consensus recommendations based on imaging criteria.
[2021-07-12 19:22] LABS: Chloride 102 mmol/L (98-107); Sodium 135 mmol/L (136-145)
[2021-07-12 19:23] LABS: Potassium 3.7 mmoL/L (3.5-5.1)
[2021-07-12 19:25] LABS: Alanine Aminotransferase 35 U/L (12-78); Albumin/Globulin Ratio 1.3 (1.1-1.8); Alkaline Phosphatase 79 U/L (38-126); Anion Gap 13.7 mEq/L (5-15); Aspartate Amino Transferase 62 U/L (17-59); Basophils # 0.1 K/mm3 (0-0.2); Basophils % 1.6 % (0.1-2.0); Bilirubin,Total 0.8 mg/dl (0.2-1.3); Blood Urea Nitrogen 16 mg/dl (9-20); Calcium 7.7 mg/dl (8.4-10.2); Carbon Dioxide 23 mmol/L (22.0-30.0); Creatinine Clearance Estimated 69 mL/min (50-200); Eosinophils % 0.3 % (0.1-12.0); Estimated Glomerular Filt Rate 93 ml/min (>60); GFR (African American) 113 ML/MIN (>60); Globulin 3.1 g/dL (1.3-3.2); Glucose 101 mg/dl (74-100); Hematocrit 41.4 % (42.0-52.0); Hemoglobin 13.4 g/dL (14.1-18.0); Lymphocytes # 1.7 K/mm3 (0.7-4.5); Lymphocytes % 39.1 % (10-50); Mean Corpuscular HGB Conc 32.5 g/dL (31.8-35.4); Mean Corpuscular Hemoglobin 29.4 pg (27.0-31.2); Mean Corpuscular Volume 90.7 fl (80-94); Mean Platelet Volume 9.7 fl (7.4-10.4); Monocytes # 0.3 K/mm3 (0.1-1.0); Monocytes % 6.1 % (1.7-9.3); Neutrophils # 2.3 K/mm3 (1.8-7.8); Neutrophils % 52.9 % (37.0-80.0); Platelet Count 223 K/mm3 (142-424); Red Blood Count 4.57 M/mm3 (4.60-6.20); Red Cell Distribution Width 14.5 % (11.5-17.5); Total Protein,Serum 7.1 g/dl (6.3-8.2); White Blood Count 4.4 K/mm3 (4.8-10.8)
--- NOTE | 2021-07-12 20:28 | HMH.EDNVD ---
ED Disposition Clinical Impression: Dark stools Decubitus skin ulcer Qualifiers: Pressure injury location: buttock Pressure injury stage: stage 2 Laterality: unspecified laterality Qualified Code(s): L89.302 - Pressure ulcer of unspecified buttock, stage 2 Disposition: Home, Self-Care Condition on Discharge: Good Instructions: DI for Pressure Injuries Additional Instructions: fluids and see pcp for follow up Referrals: Neftaly Henderson MD [Primary Care Provider] - - Critical Care Critical Care Time: No Attestation: On 07/12/21, the high probability of a clinically significant, sudden or life threatening deterioration of the following system(s) required my full and direct attention, intervention and personal management. The time I documented below is in addition to time spent performing reported procedures but includes the following listed in this critical care notation. Medical Decision Making - Medical Records Medical records reviewed: Yes: I reviewed the patient's medical records. - Samson Inquiry Pt receiving controlled substance: No Vital Signs: 07/12/21 18:21 Temperature 97.5 F L Temperature Source Oral Pulse Rate [Left Radial] 69 Respiratory Rate 18 Blood Pressure [Left Arm] 190/82 H Blood Pressure Mean [Left Arm] 118 Blood Pressure Source [Left Arm] Automatic Cuff Blood Pressure Position [Left Arm] Sitting 02 Sat by Pulse Oximetry 98 Oxygen Delivery Method Room Air - Lab Data Lab results reviewed: Yes: I reviewed the patient's lab results. Lab Results 07/12/21 19:00: WBC 4.4 L, RBC 4.57 L, Hgb 13.4 L, Hct 41.4 L, MCV 90.7, MCH 29.4, MCHC 32.5, RDW 14.5, Plt Count 223, MPV 9.7, Neut % (Auto) 52.9, Lymph % (Auto) 39.1, Miller % (Auto) 6.1, Eos % (Auto) 0.3, Baso % (Auto) 1.6, Neut # (Auto) 2.3, Lymph # (Auto) 1.7, Miller # (Auto) 0.3, Eos # (Auto) 0.0, Baso # (Auto) 0.1 07/12/21 19:00: Sodium 135 L, Potassium 3.7, Chloride 102, Carbon Dioxide 23, Anion Gap 13.7, BUN 16, Creatinine 0.80, Estimated Creat Clear 69, Estimated GFR 93, Est GFR ( Amer) 113, Glucose 101 H, Calcium 7.7 L, Total Bilirubin 0.8, AST 62 H, ALT 35, Alkaline Phosphatase 79, Total Protein 7.1, Albumin 4.0, Globulin 3.1, Albumin/Globulin Ratio 1.3 07/12/21 20:40: Stool Occult Blood Negative Result diagrams: 07/12/21 19:00 07/12/21 19:00 Orders (Tests/Meds): ED MEDICATIONS Generic Name Dose Route Start Last Admin Trade Name Freq PRN Reason Stop Dose Admin Sodium Chloride 1,000 mls @ 999 mls/hr 07/12/21 19:15 07/12/21 19:10 Sod Chlor 0.9% 1000ml Bag IV 07/12/21 20:15 999 mls/hr .Q1H1M DEMARCO Administration Sodium Chloride 10 ml 07/12/21 19:06 Sodium Chloride 0.9% 10ml Flush Syringe IV 08/11/21 19:05 NEEDED PRN Maintain IV Site Discontinued Medications Generic Name Dose Route Start Last Admin Trade Name Freq PRN Reason Stop Dose Admin Iopamidol 75 ml 07/12/21 19:54 07/12/21 19:55 Iopamidol-370 (76%);100ml Bottle IV 07/12/21 19:55 75 ml ONCE ONE Administration Sodium Chloride 10 ml 07/12/21 19:54 07/12/21 19:55 Sodium Chloride 0.9% 10ml Syr (Rad Only) IV 07/12/21 19:55 10 ml ONCE ONE Administration ORDERS Category Date Time Status UA [Urinalysis and Microscopic] Stat Lab 07/12/21 21:23 Received - CT Data CT Scan: Abdomen, Pelvis Time Received: 22:[address] Reviewed: Yes: I have viewed the radiologist's interpretation Preliminary Findings: Abnormal Medical Decision Narrative: pt with no active bleeding and has early changes buttocks - has mobility issues Nausea/Vomiting/Diarrhea HPI - General Chief complaint: Nausea/Vomiting/Diarrhea Stated complaint: BLOOD IN STOOLS Time Seen by Provider: 07/12/21 20:28 Mode of Arrival: EMS Source of Information: Patient, EMS, Medical Record Limitations: No Limitations Description of Symptoms (Recalled from ER Triage Doc. by RN): pt reports black stools x2 days, reports diarrhea. Home health staff was
[2021-07-12 20:55] LABS: Occult Blood,Stool Negative (Negative)
--- NOTE | 2021-07-12 20:56 | PC.NURSE ---
Patient incont on bowels, jessica care given. two stage 2 to coccyx area. MD aware
[2021-07-12 21:48] LABS: Microscopic, Urine URINE MICROSCOPIC (MICROSCOPIC)
[2021-07-12 21:51] LABS: Appearance,Urine CLEAR (Clear); Bilirubin,Urine Negative (Negative); Blood, Urine Negative (Negative); Color,Urine YELLOW (Yellow); Glucose,Urine (UA) Negative (Negative); Ketones,Urine 1+ (Negative); Leukocyte Esterase,Urine Negative (Negative); Nitrate,Urine Negative (Negative); Protein,Urine Negative (Negative); Specific Gravity, Urine <= 1.005 (1.005-1.030); Urobilinogen,Urine 0.2 EU/dl (0.2)
--- NOTE | 2021-07-12 22:25 | PC.NURSE ---
dressing applied to decub to bottom
[2021-07-12 22:42] VITALS: BP 188/80; PULSE 69; RESP 18; TEMP 36.5; O2SAT 98
[2021-07-12 22:45] LABS: Bacteria,Urine Trace /lpf; Squamous Epithelial Cell,Urine Occasional #/hpf (0-5); WBC,Urine Occasional #/hpf (0-3)
== END 2021-07-12 22:47 | disposition home or self-care (01) ==
PROVIDERS: Student in an Organized Health Care Education/Training Program; Emergency Provider Emergency Medicine; PCP Family Medicine
DX: L89.302 Pressure ulcer of unspecified buttock, stage 2 (principal); R19.5 Other fecal abnormalities; E11.9 Type 2 diabetes mellitus without complications; I10 Essential (primary) hypertension; E78.5 Hyperlipidemia, unspecified; Z79.899 Other long term (current) drug therapy
CPT/HCPCS: 74177; 80053; 81001; 82272; 85025; 96365; 96375; 99283; G0328; Q9967

== ENCOUNTER → 2021-08-25 14:24 | Outpatient (CLI) | payer MEDICARE, SELFPAY ==
[2021-08-25 14:46] LABS: Basophils # 0.1 K/mm3 (0-0.2); Basophils % 1.2 % (0.1-2.0); Eosinophils # 0.4 K/mm3 (0.0-0.4); Eosinophils % 4.5 % (0.1-12.0); Hematocrit 39.1 % (42.0-52.0); Hemoglobin 12.8 g/dL (14.1-18.0); Lymphocytes # 2.1 K/mm3 (0.7-4.5); Lymphocytes % 26.4 % (10-50); Mean Corpuscular HGB Conc 32.8 g/dL (31.8-35.4); Mean Corpuscular Hemoglobin 30.3 pg (27.0-31.2); Mean Corpuscular Volume 92.4 fl (80-94); Mean Platelet Volume 8.9 fl (7.4-10.4); Monocytes # 0.5 K/mm3 (0.1-1.0); Monocytes % 6.3 % (1.7-9.3); Neutrophils # 4.8 K/mm3 (1.8-7.8); Neutrophils % 61.7 % (37.0-80.0); Platelet Count 370 K/mm3 (142-424); Red Blood Count 4.23 M/mm3 (4.60-6.20); Red Cell Distribution Width 14.5 % (11.5-17.5); White Blood Count 7.8 K/mm3 (4.8-10.8)
[2021-08-25 15:31] LABS: Chloride 104 mmol/L (98-107); Sodium 138 mmol/L (136-145)
[2021-08-25 15:34] LABS: Blood Urea Nitrogen 12 mg/dl (9-20); Estimated Glomerular Filt Rate 93 ml/min (>60); GFR (African American) 113 ML/MIN (>60)
[2021-08-25 15:35] LABS: Calcium 8.4 mg/dl (8.4-10.2); Carbon Dioxide 26 mmol/L (22.0-30.0); Glucose 165 mg/dl (74-100)
[2021-08-25 15:44] LABS: NT Pro Brain Natriuretic Pep. 1190 pg/mL (0-450)
== END ==
PROVIDERS: Visit Provider Emergency Medicine
DX: I50.32 Chronic diastolic (congestive) heart failure (principal); E78.5 Hyperlipidemia, unspecified
CPT/HCPCS: 80048; 83880; 85025

== ENCOUNTER → 2021-09-14 07:34 | Outpatient (CLI) | payer MEDICARE, MEDICAID, SELFPAY ==
--- NOTE | 2021-09-14 | CA_ITS ---
APPROVED REPORT Exam: Pharmacologic Technologist: Cristy Ansari, Ht: 5 ft 8 in Wt: 159 lbs BSA: 1.85 m2 HR: 60 bpm BP: 160/76 mmHg Rhythm: NSR, PVC 1 DEGREE AVB, LVH, POOR R WAVE PROGRESSION, CANNOT R/O OLD INF ME Medical History Medical History: HTN, Hyperlipidemia, Diabetes Medications: Lisinopril,,,,, Omeprazole,,,,, Aspirin,,,,, Atenolol,,,,, Metformin,,,,, Atorvastatin,,,,, Glipizide,,,,, LoraTADINE,,,,, Aldactone,,,,, MuPirocin,,,,, Furosemide,,,,, Allergies: No known drug allergies Cardiac Risk Factors: HTN, Hyperlipidemia, Diabetes , Smoking Stress Test Details Test: LEXISCAN HR Resting HR: 59 bpm Max Heart Rate (APMHR): 141.840509 bpm Max HR Achieved: 90 bpm Target HR (85% APMHR): 119.951566 bpm % of APMHR: 63.83 Recovery HR: 71 bpm BP Resting BP: 160/76 mmHg Max BP: 170/75 mmHg Recovery BP: 146.0/70.0 mmHg ECG Resting ECG: NSR, PVC 1 DEGREE AVB, LVH, POOR R WAVE PROGRESSION, CANNOT R/O OLD INF ME Clinical Exercise duration: 04:09 min Highest Stage Achieved: Exercise capacity: 1.0 METs Stress ECG Conclusion PT HAD MILD CHEST TIGHTNESS, SOA. OCC PVC, RATE DEOENDENT LBBB. 3 BEAT SAUL OF VT VS SVT WITH ABERRANCY. ST-T CHANGES RELATED TO RATE DEPENDENT LBBB. LBBB DEVOLPED WITH INCREASED HR. OTHERWISE UNREMARKABLE LEXISCAN STRESS. MYOVIEW IMAGES REPORTED SEPARATELY. Test Summary RECOVERY 06:00 . . 72 . 143/ 70 . . Stage 1 01:00 . . 71 . . . . Stage 2 01:00 . . 80 . . . . Stage 3 01:00 . . 83 . . . . Stage 4 01:00 . . 80 . 143/ 76 . . Stage 4 01:09 . . 80 . 143/ 76 . Stop exercise at 04:09 RECOVERY 01:00 . . 80 . 133/ 78 . . RECOVERY 02:00 . . 75 . 133/ 78 . . RECOVERY 03:00 . . 74 . 129/ 73 . . RECOVERY 04:00 . . 70 . 121/ 76 . . RECOVERY 05:00 . . 70 . 121/ 76 . . RECOVERY 06:00 . . 72 . 143/ 70 . . RECOVERY 07:00 . . 69 . 143/ 70 . . RECOVERY 07:52 . . 70 . 146/ 70 . . Electronically signed by : Alejandro Guillen MD 09/15/2021 14:10:10
--- NOTE | 2021-09-14 07:36 | CA_ITS ---
APPROVED REPORT EXAM: Comprehensive 2D, Doppler, and color-flow Echocardiogram Risk Manager: Juli Perales RT(R) Ht: 5 ft 8 in Wt: 159lbs BSA: 1.85 BP: 210/87 mmHg Indications: Edema, HTN, DM, SOB, abn EKG, LBBB, Patient scanned flat on back. 2D Dimensions LVOT 2.01 cm (M/F) 1.5-2.5 M-Mode Dimensions RVDd 3.28 cm (0.9-2.6) LA Diam 2.14 cm (1.9-4.0) LVDd 5.05 cm (3.5-5.7) Ao Diam 3.39 cm (2.0-3.7) LVDs 3.80 cm (3.5-5.7) IVSd 0.88 cm (0.6-1.1) PWd 0.76 cm (0.6-1.1) EF (Teich) 48.80% FS 24.80% EDV (Teich) 121.00 mL ESV (Teich) 62.00 mL LV Diastology E Decel Time 163.00 (160-240 msec) E/A Ratio 0.8 MED E' 5.00 (< 7 cm/sec) E'/MED E' Ratio 8.80 (>14) LAT E' 8.90 (<10 cm/sec) E/LAT E' Ratio 4.94 (>14) Aortic Valve LVOT Max 83.00 (70-110 cm/s) LVOT VTI 15.37 cm AoV Peak Gomez. 106.00 (50-130 cm/s) AO Peak GR. 4.50 mmHg AO Mean GR. 2.20 (<5 mmHg) AO VTI 19.62 (18-25 cm) SHI (VTI) 2.49 (2.5-4.5 cm2) Mitral Valve MV E Max Gomez. 44.00 (40-130 cm/s) MV A Velocity 58.00 (40-130 cm/s) E/A Ratio 0.76 MV Decel. Time 163.00 (160-240 ms) MV PHT 48.00 ms Left Ventricle Left atrium is mildly enlarged, left ventricle is normal size, mild concentric left ventricular hypertrophy, estimated ejection fraction 50%, there is abnormal septal motion, Doppler evidence of impaired LV relaxation seen, tissue Doppler is inconclusive. Right Ventricle Right atrium and right ventricle are mildly enlarged with normal contractility. Aortic Valve Aortic valve is thickened and calcified without aortic stenosis or aortic insufficiency. Mitral Valve Mitral valve is minimally thickened, there is no mitral stenosis, there is mild mitral regurgitation. Tricuspid Valve Tricuspid valve is grossly normal, there is mild tricuspid regurgitation. Tricuspid regurgitation jet velocity is inadequate for calculation of the right ventricular systolic pressure. Pulmonic Valve Pulmonic valve is poorly visualized. Great Vessels Aortic root is normal size. Inferior vena cava is poorly visualized. Pericardium No significant pericardial effusion noted. Conclusion 1. Mild biatrial enlargement, normal left ventricular size, mild concentric left ventricular hypertrophy, estimated ejection fraction 50% with no regional wall motion abnormality, there is abnormal septal motion. Doppler evidence of impaired LV relaxation seen. 2. Mild mitral and tricuspid regurgitation. 3. No significant pericardial effusion noted 4. Inferior vena cava is poorly visualized. Electronically signed by : Alejandro Guillen MD 09/14/2021 10:07:25
--- NOTE | 2021-09-14 07:40 | NM_ITS ---
APPROVED REPORT Exam: Nuclear Stress Test Indication: short of breath Patient Location: Outpatient Stress Tech: Cristy Ansari AR Tech:Britany Oseguera CHERIE RT(R)(N) Ht: 5 ft 6 in Wt: 140 lbs HR: 60 bpm BP: 160/76 mmHg BSA: 1.72 m2 BMI: 22.5 Procedure: Patient received a 0.4 mg of intravenous Lexiscan, resting heart rate 60 bpm, resting blood pressure 190/76 mmHg, with Lexiscan maximum heart rate achived was 80 bpm which is Less than 85 % of the maximum predicted heart rate and blood pressure was 148/77 mmHg. pt unable to lay on his belly for his pone image. Electrocardiogram Resting electrocardiogram showed sinus rhythm, with Lexiscan there is less than 1.[address] segment depression noted from the baseline EKG, patient developed intraventricular conduction delay with Lexiscan. The EKG portion of the Lexiscan is nondiagnostic. Cardiac Stress and Resting SPECT Images: Cardiac Stress and Resting SPECT images were obtained using technetium 99m Myoview 30.6 mCi stress and 9.80 mCi at rest. Gated SPECT for analysis of segmental wall motion and calculation of the ejection fraction also done, prone images were not obtained. Cardiac stress and rest SPECT images show a fixed defect involving the anterolateral and inferior wall which is likely secondary to soft tissue attenuation, no reversible ischemia seen, computer derived ejection fraction is 39% with left ventricular global hypokinesis, right ventricle is mildly enlarged with normal contractility. Conclusion: 1. The EKG portion of the Lexiscan is nondiagnostic. 2. No scintigraphic evidence of reversible ischemia seen, computer derived ejection fraction 39% with left ventricular global hypokinesis, right ventricle is mildly enlarged with normal contractility. 3. Abnormal Lexiscan Myoview study due to low ejection fraction. Electronically signed by : Alejandro Guillen MD 09/15/2021 09:11:40
== END ==
PROVIDERS: PCP Emergency Medicine; Visit Provider Nurse Practitioner Family
DX: E11.9 Type 2 diabetes mellitus without complications (principal); G62.9 Polyneuropathy, unspecified; I10 Essential (primary) hypertension; I44.7 Left bundle-branch block, unspecified; R06.00 Dyspnea, unspecified; R60.9 Edema, unspecified; Z79.84 Long term (current) use of oral hypoglycemic drugs; Z68.25 Body mass index [BMI] 25.0-25.9, adult
CPT/HCPCS: 78452; 93017; 93306; A9502; J2785

== ENCOUNTER → 2021-09-20 10:26 | Outpatient (CLI) | payer MEDICARE, MEDICAID, SELFPAY ==
[2021-09-20 11:05] LABS: Basophils # 0.1 K/mm3 (0-0.2); Basophils % 1.5 % (0.1-2.0); Eosinophils # 0.2 K/mm3 (0.0-0.4); Eosinophils % 2.2 % (0.1-12.0); Hematocrit 41.6 % (42.0-52.0); Hemoglobin 13.6 g/dL (14.1-18.0); Lymphocytes # 1.9 K/mm3 (0.7-4.5); Lymphocytes % 25.7 % (10-50); Mean Corpuscular HGB Conc 32.6 g/dL (31.8-35.4); Mean Corpuscular Hemoglobin 30.4 pg (27.0-31.2); Mean Corpuscular Volume 93.3 fl (80-94); Monocytes # 0.5 K/mm3 (0.1-1.0); Monocytes % 6.3 % (1.7-9.3); Neutrophils # 4.7 K/mm3 (1.8-7.8); Neutrophils % 64.3 % (37.0-80.0); Platelet Count 363 K/mm3 (142-424); Red Blood Count 4.46 M/mm3 (4.60-6.20); Red Cell Distribution Width 14.4 % (11.5-17.5); White Blood Count 7.4 K/mm3 (4.8-10.8)
[2021-09-20 11:26] LABS: Anion Gap 17.1 mEq/L (5-15); Blood Urea Nitrogen 23 mg/dl (9-20); Calcium 9.4 mg/dl (8.4-10.2); Carbon Dioxide 24 mmol/L (22.0-30.0); Chloride 103 mmol/L (98-107); Estimated Glomerular Filt Rate 72 ml/min (>60); GFR (African American) 87 ML/MIN (>60); Glucose 152 mg/dl (74-100); Potassium 4.1 mmoL/L (3.5-5.1); Sodium 140 mmol/L (136-145)
[2021-09-20 11:37] LABS: NT Pro Brain Natriuretic Pep. 304 pg/mL (0-450)
== END ==
PROVIDERS: Physician Assistant; Visit Provider Nurse Practitioner
DX: R94.30 Abnormal result of cardiovascular function study, unspecified (principal); E11.65 Type 2 diabetes mellitus with hyperglycemia; I10 Essential (primary) hypertension; I44.7 Left bundle-branch block, unspecified; R06.00 Dyspnea, unspecified; R60.9 Edema, unspecified; R94.31 Abnormal electrocardiogram [ECG] [EKG]; Z01.812 Encounter for preprocedural laboratory examination; Z11.52 Encounter for screening for COVID-19; Z79.84 Long term (current) use of oral hypoglycemic drugs
CPT/HCPCS: 36415; 80048; 83880; 85025; C9803; U0003; U0005

== ENCOUNTER 2021-09-22 09:12 | Day surgery (SDC) | payer MEDICARE, MEDICAID, SELFPAY ==
[2021-09-22] VITALS (11 sets, daily range): BP systolic 72–179; BP diastolic 34–77; PULSE 42–56; RESP 18–20; O2SAT 90–99; BMI 22.6
--- NOTE | 2021-09-22 | IR_ITS ---
APPROVED REPORT Patient Location: Outpatient Cement Handler: CHERIE Foley RT (R) PROCEDURES Left heart catheterization Left ventriculogram Selective coronary angiogram INDICATION Abnormal Myoview, Systolic congestive heart failure ejection fraction 25%, Informed consent was obtained prior to the procedure. COMPLICATIONS NONE Estimated Blood Loss: LESS THAN 10 ML TECHNIQUE One percent lidocaine used to anesthetize the right anterior aspect of the wrist. The right radial artery was accessed via the Seldinger technique. A 6 [place]an sheath was placed in the right radial artery. 2.5 mg of verapamil, 800 mcg of nitroglycerin, 1mg Lidocaine and 5000 U Heparin were given through the arterial sheath. The papa catheter was also used to perform left heart catheterization, left ventriculogram and selective coronary angiogram. At the end of the procedure the sheath was removed good hemostasis was achieved using Traclet band, patient was transferred to the postop holding area in stable condition. 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 The remaining LAD has mild nonflow limiting 10% atheromatous plaque The circumflex artery Nondominant with mild calcified 10% luminal regularities The right coronary artery Large and dominant with a proximal concentric 40% stenosis followed by distal 20 and 30% stenosis The IBRAHIM ventriculogram reveals Mildly dilated mildly reduced at 45 to 50% The left ventricular end-diastolic pressure 15 mmHg IMPRESSION Coronary disease as described above Slight left ventricular dilatation with slightly reduced ejection fraction Borderline elevated LVEDP PLAN 1. I favor medical management. It is unlikely the right coronary artery is producing ischemia. Should patient continue with recalcitrant angina refractory to medical management I would consider bringing him back and performing FFR to the right coronary artery although my suspicion for this lesion being ischemic is quite low 2. Aggressive risk factor modification 3. Cardiac rehabilitation 4. Standard therapy from reduced ejection fraction Electronically signed by : Clovis Mcwilliams MD 09/22/2021 12:05:34
--- NOTE | 2021-09-22 09:46 | SUR.PREOP ---
pt presents from [facility] for heart cath. during assessment pt noted to have an open area on left buttock that the [facility] is aware of and has been providing care too.
== END 2021-09-22 15:09 | disposition home or self-care (01) ==
LOC: CATHLAB 09:13
PROVIDERS: PCP Emergency Medicine; Visit Provider Internal Medicine
DX: I25.10 Atherosclerotic heart disease of native coronary artery without angina pectoris (principal); I50.20 Unspecified systolic (congestive) heart failure; E78.5 Hyperlipidemia, unspecified; Z87.891 Personal history of nicotine dependence; Z79.84 Long term (current) use of oral hypoglycemic drugs; E11.9 Type 2 diabetes mellitus without complications; I11.0 Hypertensive heart disease with heart failure
CPT/HCPCS: 93458; 99152; C1725; C1769; J1644; Q9967

== ENCOUNTER → 2021-09-30 00:47 | Outpatient (CLI) | payer MEDICARE, MEDICAID, SELFPAY ==
[2021-09-30 00:57] LABS: Microscopic, Urine URINE MICROSCOPIC (MICROSCOPIC)
[2021-09-30 00:58] LABS: Appearance,Urine CLEAR (Clear); Bilirubin,Urine Negative (Negative); Blood, Urine 2+ (Negative); Color,Urine YELLOW (Yellow); Glucose,Urine (UA) 3+ (Negative); Ketones,Urine Negative (Negative); Leukocyte Esterase,Urine TRACE (Negative); Nitrate,Urine POSITIVE (Negative); Protein,Urine TRACE (Negative); Specific Gravity, Urine <= 1.005 (1.005-1.030); Urobilinogen,Urine 0.2 EU/dl (0.2)
[2021-09-30 01:05] LABS: Bacteria,Urine 1+ /lpf; WBC,Urine 20-50 #/hpf (0-3)
== END ==
PROVIDERS: Visit Provider Emergency Medicine
DX: R10.9 Unspecified abdominal pain (principal); R30.0 Dysuria; N39.0 Urinary tract infection, site not specified; B96.20 Unspecified Escherichia coli [E. coli] as the cause of diseases classified elsewhere
CPT/HCPCS: 81001; 87086; 87088; 87186

== ENCOUNTER 2022-04-10 13:40 | Inpatient (IN) | payer MEDICARE, MEDICAID, SELFPAY ==
[2022-04-10] VITALS (10 sets, daily range): BP systolic 104–130; BP diastolic 64–87; PULSE 68–140; RESP 16–27; TEMP 36.6–37.1; O2SAT 78–100; BMI 23.1; BMI 20.2
--- NOTE | 2022-04-10 13:54 | XR_ITS ---
FINAL REPORT CLINICAL HISTORY: elevated hr COMPARISON: 04/24/2020 FINDINGS: SINGLE-VIEW CHEST The heart size is normal. The mediastinum is normal. The lungs are clear. There is no pneumothorax. IMPRESSION: No acute cardiopulmonary process. Reviewed, Interpreted and Dictated by Teofilo Patricio III, MD Transcribed by Susana Aquino Authenticated and [facility]
[2022-04-10 14:11] LABS: Chloride 102 mmol/L (98-107); Potassium 4.8 mmoL/L (3.5-5.1); Sodium 139 mmol/L (136-145)
[2022-04-10 14:13] LABS: Basophils # 0.1 K/mm3 (0-0.2); Basophils % 1.1 % (0.1-2.0); Eosinophils # 0.2 K/mm3 (0.0-0.4); Eosinophils % 2.2 % (0.1-12.0); Hematocrit 44.9 % (42.0-52.0); Hemoglobin 14.5 g/dL (14.1-18.0); Lymphocytes # 2.6 K/mm3 (0.7-4.5); Lymphocytes % 28.3 % (10-50); Mean Corpuscular HGB Conc 32.2 g/dL (31.8-35.4); Mean Corpuscular Hemoglobin 30.4 pg (27.0-31.2); Mean Corpuscular Volume 94.5 fl (80-94); Mean Platelet Volume 9.9 fl (7.4-10.4); Monocytes # 0.6 K/mm3 (0.1-1.0); Monocytes % 6.2 % (1.7-9.3); Neutrophils # 5.8 K/mm3 (1.8-7.8); Neutrophils % 62.2 % (37.0-80.0); Platelet Count 368 K/mm3 (142-424); Red Blood Count 4.75 M/mm3 (4.60-6.20); Red Cell Distribution Width 14.1 % (11.5-17.5); White Blood Count 9.3 K/mm3 (4.8-10.8)
[2022-04-10 14:14] LABS: Anion Gap 19.8 mEq/L (5-15); Blood Urea Nitrogen 49 mg/dl (9-20); Calcium 9.7 mg/dl (8.4-10.2); Carbon Dioxide 22 mmol/L (22.0-30.0); Creatinine Clearance Estimated 36 mL/min (50-200); Estimated Glomerular Filt Rate 42 ml/min (>60); GFR (African American) 51 ML/MIN (>60); Glucose 372 mg/dl (74-100)
--- NOTE | 2022-04-10 14:21 | PC.NURSE ---
echo lab here for echo
--- NOTE | 2022-04-10 14:26 | PC.NURSE ---
Called cardiology for Dr Carey to speak to Sindy, she is in a room and said they would have her call when she comes out.
--- NOTE | 2022-04-10 14:28 | HMH.EDGENADL ---
Discharge Plan Disposition Patient Disposition: Admitted As Inpatient Condition: Serious Chief Complaint: Arrhythmia/Palpitations Prescriptions Prescriptions: No Action mupirocin 2 % ointment 1 applic TOPICAL TID Qty: 15 0RF sennosides [senna] 8.6 mg tablet 8.6 mg PO DAILY PRN (Reason: Constipation) Jardiance 10 mg tablet 10 mg PO DAILY lactulose 10 gram/15 mL solution 30 ml PO DAILY PRN (Reason: Constipation) acetaminophen 500 mg capsule 500 mg PO Q6H PRN (Reason: pain) aspirin [Adult Low Dose Aspirin] 81 mg tablet,delayed release (DR/EC) 81 mg PO DAILY loperamide 2 mg capsule 2 mg PO Q4H PRN ascorbate calcium (vitamin C) 500 mg tablet 500 mg PO BID atorvastatin 10 MG tablet 10 mg PO DAILY Label Comments: TAKE 1 TABLET BY MOUTH EVERY DAY glipizide 10 MG tablet 10 mg PO DAILY Label Comments: TAKE 1 TABLET BY MOUTH EVERY DAY metformin 1,000 MG tablet 1,000 mg PO BID Label Comments: TAKE 1 TABLET BY MOUTH TWICE DAILY omeprazole 20 MG capsule,delayed release(DR/EC) 20 mg PO DAILY Label Comments: TAKE 1 CAPSULE BY MOUTH EVERY DAY atenolol 50 MG tablet 50 mg PO DAILY Label Comments: TAKE 1 TABLET BY MOUTH EVERY DAY loratadine 10 MG tablet 10 mg PO DAILY Label Comments: TAKE 1 TABLET BY MOUTH EVERY DAY spironolactone 25 MG tablet 25 mg PO DAILY furosemide 20 MG tablet 20 mg PO DAILY lisinopril 40 MG tablet 40 mg PO DAILY Referrals Follow up/Referrals: Provider,Referral, MD [Referring] - See instructions Clinical Impressions Clinical Impression: Atrial flutter, Cardiomyopathy, ANJALI (acute kidney injury), Acute hyperglycemia Discharge ED Provider: Elpidio Carey General Adult HPI General Chief complaint: Arrhythmia/Palpitations Stated complaint: palpatations Time Seen by Provider: 04/10/22 14:20 History of Present Illness HPI narrative: Patient complains of rapid heartbeat that started today. He was seen in Dr. Mcwilliams's office and had an EKG that shows tachycardia rate 142. Per Sindy, nurse practitioner to Dr. Mcwilliams, suspected atrial flutter. Sent to the emergency room with request for IV beta-juwan, echocardiogram, anticoagulation. Patient is not having chest pain or shortness of breath. No syncope or presyncope. Denies prior history of tachycardia or palpitations. States that he has had a prior heart cath that showed a couple of small blockages that they did not do anything about. Related Data Home Medications Medication Instructions Recorded Confirmed atenolol 50 mg tablet 50 mg PO DAILY High blood pressure 04/03/19 04/10/22 atorvastatin 10 mg tablet 10 mg PO DAILY Cholesterol 04/03/19 04/10/22 glipizide 10 mg tablet 10 mg PO DAILY Diabetes 04/03/19 04/10/22 loratadine 10 mg tablet 10 mg PO DAILY Allergy symptoms 04/03/19 04/10/22 metformin 1,000 mg tablet 1,000 mg PO BID Diabetes 04/03/19 04/10/22 omeprazole 20 mg capsule,delayed 20 mg PO DAILY GERD 04/03/19 04/10/22 release aspirin 81 mg tablet,delayed 81 mg PO DAILY Blood thinner 05/01/21 04/10/22 release (Adult Low Dose Aspirin) acetaminophen 500 mg capsule 500 mg PO Q6H PRN pain 09/20/21 04/10/22 empagliflozin 10 mg tablet 10 mg PO DAILY Diabetes 09/20/21 04/10/22 (Jardiance) lactulose 10 gram/15 mL oral 30 ml PO DAILY PRN Constipation 09/20/21 04/10/22 solution sennosides 8.6 mg tablet (senna) 8.6 mg PO DAILY PRN Constipation 09/20/21 04/10/22 furosemide 20 mg tablet 20 mg PO DAILY Fluid 09/22/21 04/10/22 lisinopril 40 mg tablet 40 mg PO DAILY htn 09/22/21 04/10/22 spironolactone 25 mg tablet 25 mg PO DAILY Fluid 09/22/21 04/10/22 loperamide 2 mg capsule 2 mg PO Q4H PRN 10/03/21 04/10/22 ascorbate calcium (vitamin C) 500 500 mg PO BID 04/10/22 04/10/22 mg tablet Previous Rx's Medication Instructions Recorded mupirocin 2 % topical ointment 1 applic topical TID infect
[2022-04-10 14:32] LABS: Coronavirus 19, PCR Not Detected (NotDetected); Influenza A, PCR Not Detected (NotDetected); Influenza B, PCR Not Detected (NotDetected)
[2022-04-10 14:34] LABS: Troponin I < 0.01 ng/ml (0.00-0.034)
--- NOTE | 2022-04-10 14:48 | PC.NURSE ---
speaking with Dr. Mcwilliams
--- NOTE | 2022-04-10 15:01 | PC.NURSE ---
Spoke with Porfirio in pharmacy about medication orders.
--- NOTE | 2022-04-10 15:07 | P.CONPHA_ITS ---
[facility] Pharmacy Heparin Dosing Demographic Data Admission date:: 04/10/22 Date: 04/10/22 Time: 15:07 Allergies Allergy/AdvReac Type Severity Reaction Status Date / Time No Known Allergies Allergy Verified 04/10/22 13:10 Height: 1.73 m Weight: 68.946 kg Indication Medication therapy:: Heparin Current Indications:: MEDIUM DOSE PROTOCOL FOR ATRIAL FLUTTER Current Active Problems (Updated 04/10/22 @ 17:32 by Natalie Mcwilliams MD) Tachycardia induced cardiomyopathy (Acute) Atrial flutter (Acute) Type 2 diabetes mellitus (Chronic) Acute hyperglycemia (Acute) ANJALI (acute kidney injury) (Acute) Cardiomyopathy (Acute) Atrial flutter (Acute) CVA?: No Bleeding problem?: No Kidney disease?: No OR?: No Additional History:: OR, CHEST PAIN, T2DM, HTN Desired PTT range:: 50-75 seconds Labs Anticoagulation Lab Results:: 04/10/22 13:45 Hgb 14.5 Hct 44.9 Plt Count 368 Monitoring Dose Monitor 1: Date: 04/10/22 Time: 13:45 PTT Result:: BASELINE PTT 25.1 SECONDS Infusion Rate:: BOLUS 4800 UNITS HEPARIN IV ONCE AND START HEPARIN DRIP AT 1400 UNITS/HOUR = 28 ML/HOUR Dose Monitor 2: Date: 04/10/22 Time: 21:06 PTT Result:: 164.9 SECONDS Infusion Rate:: DECREASE HEPARIN DRIP TO 1200 UNITS/HOUR = 24 ML/HOUR Dose Monitor 3: Date: 04/10/22 Time: 23:35 PTT Result:: 150.7 SECONDS Infusion Rate:: NIGHTWATCH CONTINUED CURRENT RATE OF 1200 UNITS/HOUR = 24 ML/HOUR Dose Monitor 4: Date: 04/11/22 Time: 04:20 PTT Result:: 135.1 SECONDS Infusion Rate:: NIGHTWATCH DECREASED HEPARIN DRIP RATE TO 1000 UNITS/HOUR = 20 ML/HOUR Dose Monitor 5: Date: 04/11/22 Time: 11:28 PTT Result:: 74.9 SECONDS Infusion Rate:: CONTINUE CURRENT HEPARIN DRIP RATE OF 1000 UNITS/HOUR = 20 ML/HOUR Core Measures Is INR > or = 2 at discharge?: No Most Recent Labs:: Laboratory Results - last 24 hr 04/10/22 13:45: WBC 9.3, RBC 4.75, Hgb 14.5, Hct 44.9, MCV 94.5 H, MCH 30.4, MCHC 32.2, RDW 14.1, Plt Count 368, MPV 9.9, Neut % (Auto) 62.2, Lymph % (Auto) 28.3, [place] % (Auto) 6.2, Eos % (Auto) 2.2, Baso % (Auto) 1.1, Neut # (Auto) 5.8, Lymph # (Auto) 2.6, [place] # (Auto) 0.6, Eos # (Auto) 0.2, Baso # (Auto) 0.1 04/10/22 13:45: Sodium 139, Potassium 4.8, Chloride 102, Carbon Dioxide 22, Anion Gap 19.8 H, BUN 49 H, Creatinine 1.60 H, Estimated Creat Clear 36, Est imated GFR 42 L, Est GFR ( Amer) 51 L, Glucose 372 H, Calcium 9.7, Troponin I < 0.01 If INR was < than 2.0 why was therapy stopped?: CHANGED TO XARELTO Were Heparin and Warfarin started on the same day?: No If not, why?: STARTED ON XARELTO
[2022-04-10 15:11] LABS: Activated Partial Thrombo Time 25.1 seconds (22.8-30.6); INR 0.99 (0.9-1.1); Prothrombin Time 10.7 seconds (10.1-12.5)
[2022-04-10 15:17] LABS: NT Pro Brain Natriuretic Pep. 1810 pg/mL (0-450)
--- NOTE | 2022-04-10 15:26 | PC.NURSE ---
notified care management of admission
[2022-04-10 15:28] LABS: Alanine Aminotransferase 18 U/L (12-78); Alkaline Phosphatase 83 U/L (38-126); Aspartate Amino Transferase 24 U/L (17-59); Bilirubin,Direct 0.3 mg/dl (0.0-0.4); Bilirubin,Indirect 0.2 mg/dL (0.0-0.9); Bilirubin,Total 0.5 mg/dl (0.2-1.3); Bilirubin,Unconjugated 0.2 mg/dL (0.0-1.1)
[2022-04-10 15:29] LABS: Albumin Level 4.2 g/dl (3.5-5.0); Total Protein,Serum 7.8 g/dl (6.3-8.2)
--- NOTE | 2022-04-10 15:29 | EXP.CARD.CON ---
History of Present Illness History of Present Illness Consult date: 04/10/22 Requesting physician: Elpidio Carey Chief complaint: Aflutter/tachycardia Additional Medical History:: Significant Past Medical Hx DM II LBBB HTN CAD Echo 08/2021 Conclusion 1.? Mild biatrial enlargement, normal left ventricular size, mild concentric left ventricular hypertrophy, estimated ejection fraction 50% with no regional wall motion abnormality, there is abnormal septal motion.? Doppler evidence of impaired LV relaxation seen. 2.? Mild mitral and tricuspid regurgitation. 3.? No significant pericardial effusion noted 4.? Inferior vena cava is poorly visualized. 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 The remaining LAD has mild nonflow limiting 10% atheromatous plaque The circumflex artery Nondominant with mild calcified 10% luminal regularities The right coronary artery Large and dominant with a proximal concentric 40% stenosis followed by distal 20 and 30% stenosis The IBRAHIM ventriculogram reveals Mildly dilated mildly reduced at 45 to 50% The left ventricular end-diastolic pressure 15 mmHg IMPRESSION Coronary disease as described above Slight left ventricular dilatation with slightly reduced ejection fraction Borderline elevated LVEDP PLAN 1. I favor medical management.? It is unlikely the right coronary artery is producing ischemia.? Should patient continue with recalcitrant angina refractory to medical management I would consider bringing him back and performing FFR to the right coronary artery although my suspicion for this lesion being ischemic is quite low 2. Aggressive risk factor modification 3. Cardiac rehabilitation 4. Standard therapy from reduced ejection fraction History of present illness: Patient is poor historian:81 year old white male with the above past medical hx presented to cardiology office this afternoon for routine follow up visit and was found to be in a flutter rate of 142 upon presentation to office. Patient denies chest pain, soa, or palpitations. Patient resides at [facility]. Patient was transported to ED for further evaluation. Stat echo reveals a preliminary EF of 5 percent. Of note patient is still tachycardic in the 130s. No hx of afib or flutter. Last Echo 08/2021 revealed and EF of 50. 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 The remaining LAD has mild nonflow limiting 10% atheromatous plaque. The circumflex artery is nondominant with mild calcified 10% luminal irregularities. The right coronary artery is large and dominant with a proximal concentric 40% stenosis followed by distal 20 to 30% stenosis. At that time, medical management was favored. ED labs as follow: WBC 9.3, Hgb 15.5, Creatinine 1.60, Glucose is 372, Anion gap 19.8, Glucose 372, carbon dioxide 22, Trop 0.01. Patient remains aysmptomatic. I spoke with the nurse at senior living and she reports patient has been in normal state of health and just came in today for routine follow up. Patient will be started on amio and heparin drip. Patient will undergo PRATIBHA and cardioversion in the am. [facility] Medical History Abnormal electrocardiography Dyspnea Edema HTN (hypertension) Left bundle branch block (LBBB) Overweight (BMI 25.0-29.9) Peripheral neuropathy Social History Smoking Status: Never smoker alcohol intake: never current occupational status: retired Travel in the last 8 weeks: None housing: senior living caffeine: No Review of Sy
--- NOTE | 2022-04-10 16:00 | PC.NURSE ---
Updated pt and daughter on POC and admission
[2022-04-10 16:16] LABS: Triiodothryronine (T3) Uptake 44 % (23.5-40.5)
[2022-04-10 16:17] LABS: Free Thyroxine Index 2.7 ug/dL (5.93-13.13); T4 (Thyroxine) 6.2 ug/dl (5.53-11.0)
--- NOTE | 2022-04-10 16:20 | PC.NURSE ---
Called report to Coreen
[2022-04-10 16:30] LABS: Thyroid Stimulating Hormone 1.01 uIU/mL (0.465-4.68)
--- NOTE | 2022-04-10 16:33 | PC.NURSE ---
patient arrived by stretcher form ED
--- NOTE | 2022-04-10 17:01 | EXP.HP ---
History of Present Illness *Admission Date: 04/10/22 *Reason for visit:: heart racing *History of present illness: 81 year old white male presented to cardiology office this afternoon for routine follow up visit and was found to be in a flutter rate of 142 upon presentation to office. Patient denies chest pain, soa, or palpitations. Patient resides at [facility]. Patient was transported to ED for further evaluation. Stat echo reveals a preliminary EF of 5 percent. Of note patient is still tachycardic in the 130s. No hx of afib or flutter. Last Echo 08/2021 revealed and EF of 50. 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 The remaining LAD has mild nonflow limiting 10% atheromatous plaque.? The circumflex artery is nondominant with mild calcified 10% luminal irregularities.? The right coronary artery is large and dominant with a proximal concentric 40% stenosis followed by distal 20 to 30% stenosis. At that time, medical management was favored. ED labs as follow: WBC 9.3, Hgb 15.5, Creatinine 1.60, Glucose is 372, Anion gap 19.8, Glucose 372, carbon dioxide 22, Trop 0.01. Patient remains aysmptomatic. I spoke with the nurse at [facility] and she reports patient has been in normal state of health and just came in today for routine follow up. Patient will be started on amio and heparin drip. Patient will undergo PRATIBHA and cardioversion in the am. [facility] Medical History Abnormal electrocardiography ANJALI (acute kidney injury) Arthritis Atrial flutter CAD (coronary artery disease) CAD in [place] artery Cardiomyopathy Diabetes mellitus Dyspnea Edema HTN (hypertension) Hyperlipidemia Left bundle branch block (LBBB) Overweight (BMI 25.0-29.9) Peripheral neuropathy Surgical History History of cardiac cath Family History (Updated 04/10/22 @ 16:58 by Coreen Heaton, RN) Other No significant family history Social History (Updated 04/10/22 @ 17:00 by Coreen Heaton RN) Smoking Status: Never smoker alcohol intake: never current occupational status: retired Travel in the last 8 weeks: None housing: [facility] caffeine: No Review of Systems Constitutional Constitutional: Denies headache(s) and Denies weakness ENT Ears, Nose, Mouth, and Throat: Denies headache(s) *Cardiovascular Cardiovascular: Denies syncope *Musculoskeletal Musculoskeletal: Denies numbness *Neurologic Neurologic: Denies headache(s), Denies numbness, Denies syncope and Denies weakness Meds Home Medications and Allergies Home Medications Medication Instructions Recorded Confirmed Type atenolol 50 mg tablet 50 mg PO DAILY High blood pressure 04/03/19 04/10/22 History atorvastatin 10 mg tablet 10 mg PO DAILY Cholesterol 04/03/19 04/10/22 History glipizide 10 mg tablet 10 mg PO DAILY Diabetes 04/03/19 04/10/22 History loratadine 10 mg tablet 10 mg PO DAILY Allergy symptoms 04/03/19 04/10/22 History metformin 1,000 mg tablet 1,000 mg PO BID Diabetes 04/03/19 04/10/22 History omeprazole 20 mg capsule,delayed 20 mg PO DAILY GERD 04/03/19 04/10/22 History release aspirin 81 mg tablet,delayed 81 mg PO DAILY Blood thinner 05/01/21 04/10/22 History release (Adult Low Dose Aspirin) acetaminophen 500 mg capsule 500 mg PO Q4H PRN pain 09/20/21 04/10/22 History empagliflozin 10 mg tablet 10 mg PO DAILY Diabetes 09/20/21 04/10/22 History (Jardiance) lactulose 10 gram/15 mL oral 30 ml PO DAILY PRN Constipation 09/20/21 04/10/22 History solution sennosides 8.6 mg tablet (senna) 8.6 mg PO DAILY PRN Constipation 09/20/21 04/10/22 History furosemide 20 mg tablet 20 mg PO DAILY Fluid 09/22/21 04/10/22 History lisinopril 40 mg tablet 40 mg PO DAILY htn 09/22/21
[2022-04-10 17:14] LABS: Troponin I < 0.01 ng/ml (0.00-0.034)
[2022-04-10 17:28] LABS: POC Glucose,Bedside 300 (70-110)
[2022-04-10 20:08] LABS: POC Glucose,Bedside 374 (70-110)
--- NOTE | 2022-04-10 20:34 | PC.NURSE ---
BLADDER SCAN FOR RESIDUAL URINE WAS 51ML
[2022-04-10 20:40] LABS: Creatinine,Urine Random 37 mg/dL (Not Estab.)
[2022-04-10 21:44] LABS: Troponin I < 0.01 ng/ml (0.00-0.034)
[2022-04-10 21:46] LABS: PTT Heparin (inpatient only) 164.9 Seconds (23.6-34.0)
--- NOTE | 2022-04-10 21:53 | PC.NURSE ---
SPOKE WITH ANA FROM [facility]. HEPARIN DRIP CHANGED TO 1200 UNITS PER HR (24ML/HR). NEXT APTT AT 2330.
[2022-04-11] VITALS (23 sets, daily range): BP systolic 86–136; BP diastolic 47–95; PULSE 49–128; RESP 14–18; TEMP 36.2–36.9; O2SAT 92–100; BMI 20.2
[2022-04-11 00:12] LABS: PTT Heparin (inpatient only) 150.7 Seconds (23.6-34.0)
--- NOTE | 2022-04-11 00:20 | PC.NURSE ---
SPOKE WITH DEN AT [facility]. STATED TO CONTINUE HEPARIN AT CURRENT RATE AND NEXT APTT WILL BE AT 0400.
[2022-04-11 04:53] LABS: Basophils # 0.1 K/mm3 (0-0.2); Basophils % 0.9 % (0.1-2.0); Eosinophils # 0.3 K/mm3 (0.0-0.4); Eosinophils % 3.6 % (0.1-12.0); Hematocrit 38.9 % (42.0-52.0); Lymphocytes % 34.1 % (10-50); Mean Corpuscular HGB Conc 32.4 g/dL (31.8-35.4); Mean Corpuscular Hemoglobin 29.5 pg (27.0-31.2); Mean Corpuscular Volume 90.9 fl (80-94); Mean Platelet Volume 9.1 fl (7.4-10.4); Monocytes # 0.7 K/mm3 (0.1-1.0); Monocytes % 7.5 % (1.7-9.3); Neutrophils # 4.7 K/mm3 (1.8-7.8); Neutrophils % 53.9 % (37.0-80.0); Platelet Count 305 K/mm3 (142-424); Red Blood Count 4.27 M/mm3 (4.60-6.20); Red Cell Distribution Width 14.3 % (11.5-17.5); White Blood Count 8.7 K/mm3 (4.8-10.8)
[2022-04-11 04:55] LABS: Chloride 107 mmol/L (98-107); Potassium 3.6 mmoL/L (3.5-5.1); Sodium 134 mmol/L (136-145)
[2022-04-11 04:57] LABS: Blood Urea Nitrogen 41 mg/dl (9-20); Creatinine Clearance Estimated 39 mL/min (50-200); Estimated Glomerular Filt Rate 53 ml/min (>60); GFR (African American) 64 ML/MIN (>60)
[2022-04-11 04:58] LABS: Alanine Aminotransferase 12 U/L (12-78); Albumin Level 3.3 g/dl (3.5-5.0); Albumin/Globulin Ratio 1.1 (1.1-1.8); Alkaline Phosphatase 69 U/L (38-126); Anion Gap 10.6 mEq/L (5-15); Aspartate Amino Transferase 17 U/L (17-59); Bilirubin,Total 0.7 mg/dl (0.2-1.3); Calcium 8.8 mg/dl (8.4-10.2); Carbon Dioxide 20 mmol/L (22.0-30.0); Cholesterol 86 mg/dl (140-200); Globulin 2.9 g/dL (1.3-3.2); Glucose 115 mg/dl (74-100); Magnesium 1.8 mg/dl (1.6-2.3); Phosphorous 4.4 mg/dl (2.5-4.5); Total Protein,Serum 6.2 g/dl (6.3-8.2); Triglycerides 52 mg/dl (30-150); VLDL Cholesterol 10 mg/dL (0-40)
[2022-04-11 04:59] LABS: Chol/HDL Ratio 2.7 (1-3.5); HDL Cholesterol 32 mg/dl (40-60)
--- NOTE | 2022-04-11 05:08 | PC.NURSE ---
NO ACUTE CHANGES THIS SHIFT. PT HAS RESTED WELL. LUNG SOUNDS ARE CLEAR. TOLERATING ROOM AIR WELL. TURNING IN BED WITH STANDBY ASSIST. USING URINAL INDEPENDENTLY. REMAINS A-FIB ON TELE. AMIO DRIP IS RUNNING AT 16.7ML/HR. HEPARIN IS AT 24 ML/HR. NO C/O N/V/D THIS SHIFT. PT HAS C/O CRAMPING IN BILATERAL LEGS ONCE THIS SHIFT AND WAS MEDICATED PER MAR WITH ADEQUATE RELIEF. CALL NOWAK WITHIN REACH.
[2022-04-11 05:10] LABS: POC Glucose,Bedside 128 (70-110)
[2022-04-11 05:10] LABS: Direct LDL Cholesterol 35.96 mg/dL (100-129); Hemoglobin 12.6 g/dL (14.1-18.0)
[2022-04-11 05:11] LABS: Hemoglobin A1C 12.4 % (4.0-6.0)
[2022-04-11 05:20] LABS: PTT Heparin (inpatient only) 135.1 Seconds (23.6-34.0)
--- NOTE | 2022-04-11 05:27 | PC.NURSE ---
SPOKE WITH DEN AT [facility]. HEPARIN DRIP DECREASED TO 1,000 UNITS/HR. NEXT APTT IS AT 1130.
--- NOTE | 2022-04-11 07:31 | P.CONPHA_ITS ---
Pharmacy Intervention Comments: Medication reconciliation completed via external fill history and MAR from care home. -Alejandra Barnard, PharmD Candidate 2022
--- NOTE | 2022-04-11 07:31 | HMH.PHAINT1 ---
Pharmacy Intervention Comments: Medication reconciliation completed via external fill history and MAR from group home. -Alejandra Barnard, PharmD Candidate 2022
--- NOTE | 2022-04-11 08:00 | CA_ITS ---
APPROVED REPORT EXAM: Comprehensive 2D, Doppler, and color-flow Echocardiogram Wrapper Layer And Examiner Soft Work: RT Tono(R) Ht: 5 ft 8 in Wt: 152lbs BSA: 1.82 BP: 136/93 mmHg Indications: aflutter Procedure After obtaining informed consent, patient underwent transesophageal echo in the [facility]. Type of Sedation : Conscious Sedation Sedation was administered by Barrington HdezNDylan. Transesophageal probe was inserted and advanced into esophagus without difficulty by Dr. Glen Mcwilliams. The PRATIBHA was performed without complications. Synchronized Cardioversion acheived with Joules after 1 attempt(s). Rhythm following Synchronized Cardioversion: Normal Sinus Rhythm Throughout the procedure, the blood pressure, pulse oximetry, cardiac rhythm, and rate were monitored. The patient tolerated the procedure without adverse effects. Recovery from conscious sedation was uneventful and vital signs were stable. Atria No thrombus is visualized in the left atrium or appendage. Conclusion No thrombus in left atrial appendage, successful cardioversion. Electronically signed by : Clovis Mcwilliams MD 05/04/2022 12:57:35
--- NOTE | 2022-04-11 09:07 | EXP.CARD.PN ---
Subjective Subjective Date: 04/11/22 Time: 08:00 Principal diagnosis: A flutter, tachycardia induced low EF Interval history: Patient remains in a flutter, rate in the low 100s. Currently on amnio and heparin drip. Plan for PRATIBHA and cardioversion this a.m. labs reviewed as follow: hemoglobin 12.6, sodium 134, creatinine improved to 1.30, glucose 115, hemoglobin A1c 12.4. Exam Data for Last 24 hours Vital signs and Labs for Last 24 Hours: Temp Pulse Resp BP Pulse Ox 97.5 F L 98 H 16 93/66 L 97 04/11/22 08:00 04/11/22 06:00 04/11/22 06:00 04/11/22 06:00 04/11/22 06:00 Laboratory Results - last 24 hr 04/10/22 13:45: WBC 9.3, RBC 4.75, Hgb 14.5, Hct 44.9, MCV 94.5 H, MCH 30.4, MCHC 32.2, RDW 14.1, Plt Count 368, MPV 9.9, Neut % (Auto) 62.2, Lymph % (Auto) 28.3, [place] % (Auto) 6.2, Eos % (Auto) 2.2, Baso % (Auto) 1.1, Neut # (Auto) 5.8, Lymph # (Auto) 2.6, [place] # (Auto) 0.6, Eos # (Auto) 0.2, Baso # (Auto) 0.1 04/10/22 13:45: Sodium 139, Potassium 4.8, Chloride 102, Carbon Dioxide 22, Anion Gap 19.8 H, BUN 49 H, Creatinine 1.60 H, Estimated Creat Clear 36, Estimated GFR 42 L, Est GFR ( Amer) 51 L, Glucose 372 H, Calcium 9.7, Troponin I < 0.01 04/10/22 13:45: PT 10.7, INR 0.99, APTT 25.1 04/10/22 13:45: NT-Pro-B Natriuret Pep 1810 H 04/10/22 13:45: TSH 1.01, Free T4 Index 2.7 L, Thyroxine (T4) 6.2, T3 Uptake 44 H 04/10/22 13:45: Total Bilirubin 0.5, Direct Bilirubin 0.3, Conjugated Bilirubin 0.0, Indirect Bilirubin 0.2, Unconjugated Bilirubin 0.2, AST 24, ALT 18, Alkaline Phosphatase 83, Total Protein 7.8, Albumin 4.2 04/10/22 14:03: SARS-CoV-2 (PCR) Not detected, Influenza A Untype (PCR) Not detected, Influenza Type B (PCR) Not detected 04/10/22 16:30: Troponin I < 0.01 04/10/22 17:18: POC Glucose 300 H 04/10/22 20:00: POC Glucose 374 H* 04/10/22 20:15: Urine Creatinine 37 04/10/22 21:06: Troponin I < 0.01 04/10/22 21:06: APTT 164.9 H* 04/10/22 23:35: APTT 150.7 H* 04/11/22 04:20: WBC 8.7, RBC 4.27 L, Hgb 12.6 L D, Hct 38.9 L, MCV 90.9, MCH 29.5, MCHC 32.4, RDW 14.3, Plt Count 305, MPV 9.1, Neut % (Auto) 53.9, Lymph % (Auto) 34.1, [place] % (Auto) 7.5, Eos % (Auto) 3.6, Baso % (Auto) 0.9, Neut # (Auto) 4.7, Lymph # (Auto) 3.0, [place] # (Auto) 0.7, Eos # (Auto) 0.3, Baso # (Auto) 0.1 04/11/22 04:20: Sodium 134 L, Potassium 3.6 D, Chloride 107, Carbon Dioxide 20 L, Anion Gap 10.6, BUN 41 H, Creatinine 1.30 H, Estimated Creat Clear 39, Estimated GFR 53 L, Est GFR ( Amer) 64 D, Glucose 115 H D, Calcium 8.8, Phosphorus 4.4, Magnesium 1.8, Total Bilirubin 0.7, AST 17 D, ALT 12 D, Alkaline Phosphatase 69, Total Protein 6.2 L, Albumin 3.3 L D, Globulin 2.9, Albumin/Globulin Ratio 1.1, Triglycerides 52, Cholesterol 86 L, LDL Cholesterol Direct 35.96 L, VLDL Cholesterol 10, HDL Cholesterol 32 L, Cholesterol/HDL Ratio 2.7 04/11/22 04:20: Hemoglobin A1c 12.4 H 04/11/22 04:20: APTT 135.1 H* 04/11/22 05:03: POC Glucose 128 H I & O for Last 24 hours: Intake & Output 04/08/22 04/09/22 04/10/22 04/11/22 23:59 23:59 23:59 23:59 Intake Total 377 / 681 720 / 720 Output Total 700 / 950 750 / 750 Balance -323 / -269 -30 / -30 Weight 133 lb 2 oz 133 lb 6.4 oz Constitutional Constitutional: no acute distress *Routine Respiratory Exam Respiratory: Present CTA bilaterally and symmetric chest movement *Routine Cardiovascular Exam Cardiovascular: Present tachycardia Comments: a fluter rate of 130 *Routine Abdominal Exam Abdominal: Present soft and normoactive bowel sounds; Absent tenderness *Routine Extremities Exam Extremities: Present full ROM and normal capillary refill; Absent edema Comments: NO EDEMA NOTED TO LOWER EXTREMITIES *Routine Skin Exam Skin: Present intact, dry and warm Detailed Neck Exam: Thyroids Thyroid: Absent bruit Progress Note: A&P Assessment and plan (1) Atrial flutter: Status: Acute (2) Tachycardia induced cardiomyopathy: Status: Acute (3) Type 2 diabetes mellitus: Status: Chronic
[2022-04-11 12:04] LABS: POC Glucose,Bedside 182 (70-110)
--- NOTE | 2022-04-11 12:13 | EXP.ANES.CKL ---
[facility] PFS Medical History Abnormal electrocardiography ANJALI (acute kidney injury) Arthritis Atrial flutter CAD (coronary artery disease) CAD in [place] artery Cardiomyopathy Diabetes mellitus Dyspnea Edema HTN (hypertension) Hyperlipidemia Left bundle branch block (LBBB) Overweight (BMI 25.0-29.9) Peripheral neuropathy Surgical History History of cardiac cath Family History (Updated 04/10/22 @ 16:58 by Coreen Heaton, RN) Other No significant family history Social History (Updated 04/10/22 @ 17:00 by Coreen Heaton, IVY) Smoking Status: Never smoker alcohol intake: never substance use type: denies use current occupational status: retired Travel in the last 8 weeks: None housing: [facility] caffeine: No [facility] Anesthesia Checklist Patient Identification Patient Identification: Arm Band Structural Data Admitted From: Home Planned Operative Procedure/s: PRATIBHA/Cardioversion Consent for Planned Operative Procedure(s) Verified: Yes Verified Documents: Surgical Consent and History and Physical NPO Status Verified Time NPO: 00:00 Additional verifications Anesthesia Reactions: No Airway Assessment C-Spine Mobility Assessed: Yes TMJ Mobility Assessed: Yes Dentition: Poor Dentition Neurological Assessment Level of Consciousness: Awake and Alert Anesthesia Plan Anesthesia Risk discussed: Yes Anesthesia Plan: Verified ASA Class: IV Anesthesia Type: MAC
[2022-04-11 12:18] LABS: PTT Heparin (inpatient only) 74.9 Seconds (23.6-34.0)
[2022-04-11 16:26] LABS: POC Glucose,Bedside 287 (70-110)
--- NOTE | 2022-04-11 16:30 | PC.NURSE ---
Pt is alert and oriented x4. Lungs are clear and diminished. He remains on RA w/O2 sats measuring > than 95%. He's had a 1st degree block on telemetry w/hr running 58-73 bpm. Glucose was 182 and 287 on checks, insulin administered per SS. Appetite has been good. He's denied any complaints. Bed is locked and in the lowest position, call light is within reach.
--- NOTE | 2022-04-11 18:06 | EXP.ACUTE.PN ---
Subjective *Date: 04/11/22 *Time: 18:06 Interval history: No issues overnight. Taken to PRATIBHA cardioversion with successful return to normal sinus rhythm. No issues following procedure. No concerns or complaints. Medical Exam Vital signs and Labs for Last 24 Hours: Vital Signs Temp Pulse Pulse Resp BP Pulse Ox 04/11/22 16:00 60 04/11/22 15:20 62 16 93/48 L 100 04/11/22 12:00 60 04/11/22 14:20 98.4 F 61 16 91/54 L 100 04/11/22 13:20 66 16 90/58 L 100 04/11/22 12:50 98.2 F 65 16 87/52 L 100 04/11/22 12:05 97.6 F 63 16 90/67 L 93 L 04/11/22 11:50 97.4 F L 58 L 14 86/47 L 100 04/11/22 11:35 97.1 F L 56 L 16 91/53 L 99 04/11/22 11:20 97.1 F L 87 16 111/82 92 L 04/11/22 08:00 105 H 04/11/22 09:30 128 H 16 133/81 100 04/11/22 10:59 50 L 04/11/22 10:57 49 L 18 116/67 100 04/11/22 08:00 101 H 18 100/57 L 100 04/11/22 08:00 97.5 F L 04/11/22 06:00 98 H 16 93/66 L 97 04/11/22 04:00 80 04/11/22 04:00 98 04/11/22 04:00 98.0 F 86 16 99/62 L 99 04/11/22 02:00 86 16 87/58 L 97 04/11/22 00:00 80 04/10/22 20:00 90 04/11/22 00:00 97.5 F L 88 18 136/95 H 96 04/10/22 22:00 78 16 104/64 L 95 04/10/22 20:00 95 04/10/22 20:00 97.9 F 128 H 16 110/74 90 L Intake and Output 04/11/22 04/11/22 04/11/22 07:59 15:59 23:59 Intake Total 720 / 1407 240 / 1407 447 / 1407 Output Total 750 / 1175 425 / 1175 0 / 1175 Balance -30 / 232 -185 / 232 447 / 232 Intake: Intake, Oral Amount 240 / 480 240 / 480 Intake, Total IV Amount 720 / 927 207 / 927 Amiodarone HCl 150 mg In 157 / 157 Dextrose 5 % in Water 100 ml @ 618 mls/hr IV ONCE ONE Rx#: [id number] Amiodarone HCl 900 mg In 112 / 112 Dextrose 5 % in Water 500 ml @ 33.3 mls/hr IV .[id number] [facility] Rx# :[id number] Heparin Sodium,Porcine/D5w 500 304 / 511 207 / 511 ml @ 1,000 UNITS/HR 20 mls/hr IV .[id number] [facility] Rx#:[id number] Heparin Sodium,Porcine/D5w 500 147 / 147 ml @ 1,400 UNITS/HR 28 mls/hr IV .[id number] [facility] Rx#:[id number] Output: Output, Urine Amount 750 / 1175 425 / 1175 0 / 1175 Other: Number of Voids 1 Number of Unmeasured Voids 1 1 Weight 60.509 kg 60.5 kg Patient Weight 04/11/22 23:59 Weight 60.5 kg Laboratory Results - last 24 hr 04/10/22 20:00: POC Glucose 374 H* 04/10/22 20:15: Urine Creatinine 37 04/10/22 21:06: Troponin I < 0.01 04/10/22 21:06: APTT 164.9 H* 04/10/22 23:35: APTT 150.7 H* 04/11/22 04:20: WBC 8.7, RBC 4.27 L, Hgb 12.6 L D, Hct 38.9 L, MCV 90.9, MCH 29.5, MCHC 32.4, RDW 14.3, Plt Count 305, MPV 9.1, Neut % (Auto) 53.9, Lymph % (Auto) 34.1, [place] % (Auto) 7.5, Eos % (Auto) 3.6, Baso % (Auto) 0.9, Neut # (Auto) 4.7, Lymph # (Auto) 3.0, [place] # (Auto) 0.7, Eos # (Auto) 0.3, Baso # (Auto) 0.1 04/11/22 04:20: Sodium 134 L, Potassium 3.6 D, Chloride 107, Carbon Dioxide 20 L, Anion Gap 10.6, BUN 41 H, Creatinine 1.30 H, Estimated Creat Clear 39, Estimated GFR 53 L, Est GFR ( Amer) 64 D, Glucose 115 H D, Calcium 8.8, Phosphorus 4.4, Magnesium 1.8, Total Bilirubin 0.7, AST 17 D, ALT 12 D, Alkaline Phosphatase 69, Total Protein 6.2 L, Albumin 3.3 L D, Globulin 2.9, Albumin/Globulin Ratio 1.1, Triglycerides 52, Cholesterol 86 L, LDL Cholesterol Direct 35.96 L, VLDL Cholesterol 10, HDL Cholesterol 32 L, Cholesterol/HDL Ratio 2.7 04/11/22 04:20: Hemoglobin A1c 12.4 H 04/11/22 04:20: APTT 135.1 H* 04/11/22 05:03: POC Glucose 128 H 04/11/22 11:28: APTT 74.9 H* 04/11/22 11:46: POC Glucose 182 H 04/11/22 16:17: POC Glucose 287 H I & O for Labs for Last 24 Hours: Intake & Output 04/08/22 04/09/22 04/10/22 04/11/22 23:59 23:59 23:59 23:59 Intake Total 377 / 681 1407 / 1407 Output Total 700 / 950 1175 / 1175 Balance -323 / -269 232 / 232 Weight 60.384 kg 60.5 kg Head: Prese
[2022-04-11 20:31] LABS: POC Glucose,Bedside 255 (70-110)
[2022-04-12] VITALS (15 sets, daily range): BP systolic 89–118; BP diastolic 43–57; PULSE 50–69; RESP 16–20; TEMP 36.6–36.9; O2SAT 97–100; BMI 22.5
[2022-04-12 05:10] LABS: POC Glucose,Bedside 100 (70-110)
--- NOTE | 2022-04-12 05:52 | PC.NURSE ---
pt has rested well this shift, no complaints of CP or SOA, SBP 89-100, has become bradycardic as the shift has progressed, HR in mid 60's first half of shift, 50-55 second half of shift, pt is asymptomatic with bradycardia, easily awakens, remains on room air with O2 sats 95-100%
[2022-04-12 06:40] LABS: Basophils # 0.1 K/mm3 (0-0.2); Basophils % 0.7 % (0.1-2.0); Eosinophils # 0.1 K/mm3 (0.0-0.4); Eosinophils % 1.5 % (0.1-12.0); Hematocrit 37.3 % (42.0-52.0); Lymphocytes # 2.3 K/mm3 (0.7-4.5); Lymphocytes % 25.5 % (10-50); Mean Corpuscular HGB Conc 32.3 g/dL (31.8-35.4); Mean Corpuscular Hemoglobin 29.8 pg (27.0-31.2); Mean Corpuscular Volume 92.2 fl (80-94); Mean Platelet Volume 9.4 fl (7.4-10.4); Monocytes # 0.6 K/mm3 (0.1-1.0); Monocytes % 6.9 % (1.7-9.3); Neutrophils # 5.8 K/mm3 (1.8-7.8); Neutrophils % 65.5 % (37.0-80.0); Platelet Count 298 K/mm3 (142-424); Red Blood Count 4.05 M/mm3 (4.60-6.20); Red Cell Distribution Width 14.3 % (11.5-17.5); White Blood Count 8.8 K/mm3 (4.8-10.8)
[2022-04-12 06:43] LABS: Alanine Aminotransferase 10 U/L (12-78); Albumin Level 3.3 g/dl (3.5-5.0); Albumin/Globulin Ratio 1.1 (1.1-1.8); Alkaline Phosphatase 71 U/L (38-126); Anion Gap 18.3 mEq/L (5-15); Aspartate Amino Transferase 20 U/L (17-59); Bilirubin,Total 0.5 mg/dl (0.2-1.3); Blood Urea Nitrogen 42 mg/dl (9-20); Carbon Dioxide 21 mmol/L (22.0-30.0); Chloride 101 mmol/L (98-107); Creatinine Clearance Estimated 40 mL/min (50-200); Estimated Glomerular Filt Rate 49 ml/min (>60); GFR (African American) 59 ML/MIN (>60); Globulin 2.9 g/dL (1.3-3.2); Glucose 113 mg/dl (74-100); Magnesium 1.8 mg/dl (1.6-2.3); Phosphorous 4.7 mg/dl (2.5-4.5); Potassium 4.3 mmoL/L (3.5-5.1); Sodium 136 mmol/L (136-145); Total Protein,Serum 6.2 g/dl (6.3-8.2)
[2022-04-12 08:43] LABS: Sodium, Urine 71 mmol/L (Not Estab.)
--- NOTE | 2022-04-12 11:23 | PC.NURSE ---
Verbal orders fro Dr Ramona Mcwilliams: start miralax daily and sennosides daily 1030
[2022-04-12 12:19] LABS: POC Glucose,Bedside 227 (70-110)
--- NOTE | 2022-04-12 12:39 | PC.NURSE ---
late entry: notified Dr Ramona zimmerman that pt bp has been 80-90 sys and hr in the 50's. pt is ordered amlodipine and amiodarone. unable to hold amio, but may bisoprolol be held. new orders hold bisoprolol for this dose 1027
--- NOTE | 2022-04-12 13:12 | EXP.ACUTE.PN ---
Subjective *Date: 04/12/22 *Time: 13:12 Interval history: Patient is doing well. Overall feels better. No complaints this morning, wants to stay until tomorrow. Medical Exam Vital signs and Labs for Last 24 Hours: Vital Signs Temp Pulse Pulse Resp BP Pulse Ox 04/12/22 10:00 61 20 89/46 L 100 04/12/22 08:00 69 04/12/22 09:12 53 L 100 04/12/22 08:00 98.0 F 04/12/22 09:14 59 L 20 118/57 L 100 04/12/22 08:00 57 L 20 90/56 L 100 04/12/22 07:03 58 L 18 95/54 L 100 04/12/22 06:00 50 L 18 96/57 L 100 04/12/22 05:00 50 L 17 93/53 L 100 04/12/22 04:00 50 L 04/12/22 04:00 100 04/12/22 04:00 97.8 F 55 L 18 99/53 L 100 04/12/22 03:00 52 L 16 99/53 L 100 04/12/22 02:00 55 L 18 97/54 L 100 04/12/22 01:00 54 L 18 89/52 L 100 04/12/22 00:00 60 04/12/22 00:00 98.1 F 62 17 93/53 L 97 04/11/22 23:00 62 16 91/59 L 100 04/11/22 20:00 65 04/11/22 22:00 69 16 92/50 L 95 04/11/22 21:00 69 17 100/47 L 100 04/11/22 20:00 98 04/11/22 20:00 98.0 F 67 16 89/55 L 98 04/11/22 16:00 64 16 97/51 L 100 04/11/22 18:00 64 16 99/61 L 100 04/11/22 16:00 60 04/11/22 15:20 62 16 93/48 L 100 04/11/22 14:20 98.4 F 61 16 91/54 L 100 04/11/22 13:20 66 16 90/58 L 100 Intake and Output 04/11/22 04/12/22 04/12/22 23:59 07:59 15:59 Intake Total 447 / 1407 720 / 720 Output Total 250 / 1425 880 / 880 Balance 197 / -18 -160 / -160 Intake: Intake, Oral Amount 240 / 480 720 / 720 Intake, Total IV Amount 207 / 927 Heparin Sodium,Porcine/D5w 500 207 / 511 ml @ 1,000 UNITS/HR 20 mls/hr IV .Q25H [facility] Rx#:[id number] Output: Output, Urine Amount 250 / 1425 880 / 880 Other: Number of Unmeasured Voids 1 Weight 67.404 kg Patient Weight 04/12/22 23:59 Weight 67.404 kg Laboratory Results - last 24 hr 04/10/22 20:15: Urine Sodium 71 04/11/22 16:17: POC Glucose 287 H 04/11/22 20:07: POC Glucose 255 H 04/12/22 05:03: POC Glucose 100 04/12/22 05:43: WBC 8.8, RBC 4.05 L, Hgb 12.0 L, Hct 37.3 L, MCV 92.2, MCH 29.8, MCHC 32.3, RDW 14.3, Plt Count 298, MPV 9.4, Neut % (Auto) 65.5, Lymph % (Auto) 25.5, Day % (Auto) 6.9, Eos % (Auto) 1.5, Baso % (Auto) 0.7, Neut # (Auto) 5.8, Lymph # (Auto) 2.3, Day # (Auto) 0.6, Eos # (Auto) 0.1, Baso # (Auto) 0.1 04/12/22 05:43: Sodium 136, Potassium 4.3, Chloride 101, Carbon Dioxide 21 L, Anion Gap 18.3 H, BUN 42 H, Creatinine 1.40 H, Estimated Creat Clear 40, Estimated GFR 49 L, Est GFR ( Amer) 59, Glucose 113 H, Calcium 9.0, Phosphorus 4.7 H, Magnesium 1.8, Total Bilirubin 0.5, AST 20, ALT 10 L, Alkaline Phosphatase 71, Total Protein 6.2 L, Albumin 3.3 L, Globulin 2.9, Albumin/Globulin Ratio 1.1 04/12/22 11:54: POC Glucose 227 H I & O for Labs for Last 24 Hours: Intake & Output 04/09/22 04/10/22 04/11/22 11/24/22 23:59 23:59 23:59 23:59 Intake Total 377 / 681 1407 / 1407 720 / 720 Output Total 700 / 950 1425 / 1425 880 / 880 Balance -323 / -269 -18 / -18 -160 / -160 Weight 60.384 kg 60.5 kg 67.404 kg Head: Present normocephalic Neck: Present normal inspection Respiratory: Present CTA bilaterally; Absent accessory muscle use Cardiac: Present Reg Rate and Rhythm GI: Present soft; Absent distention Rectal (male): Present deferred (male): Present deferred Extremities: Present normal inspection Skin: Present intact and dry Assessment and Plan *Assessment and plan (1) Atrial flutter: Status: Acute Category: Medical Code(s): I48.92 - Unspecified atrial flutter (2) Tachycardia induced cardiomyopathy: Status: Acute Category: Medical Code(s): R00.0 - Tachycardia, unspecified; I43 - Cardiomyopathy in diseases classified elsewhere (3) Type 2 diabetes mellitus: Status: Chronic Qualifiers: Diabetes mellitus long te
[2022-04-12 17:08] LABS: POC Glucose,Bedside 296 (70-110)
--- NOTE | 2022-04-12 17:15 | PC.NURSE ---
pt has rested in bed this shift. he is a/o x4, pleasant in conversation. nad noted. lungs are clear, bowel sounds are active in all quads. pt heels floated and pt is turned q2. pt requested for iv in r ac to be dc r/t discomfort.
[2022-04-13] VITALS: BP 98/57; PULSE 50; PULSE 55; RESP 18; TEMP 37; O2SAT 99
[2022-04-13 04:00] VITALS: BP 102/59; PULSE 50; RESP 18; TEMP 36.8; O2SAT 99
[2022-04-13 05:00] VITALS: BMI 21.4
--- NOTE | 2022-04-13 05:34 | ECG_ITS ---
APPROVED REPORT Exam: Resting ECG HR:49 bpm ECG Measurements Heart Rate 49 AXES NH 291 P 87 QRSd 110 QRS 24 QT 472 T 76 QTc 441 Conclusion SINUS BRADYCARDIA WITH FIRST DEGREE AV BLOCK NONSPECIFIC T-WAVE ABNORMALITY ABNORMAL ECG UNCONFIRMED REPORT Electronically signed by : Neftaly Jain MD 04/13/2022 16:22:31
--- NOTE | 2022-04-13 05:35 | PC.NURSE ---
pt c/o of chest pain 02/26 but has relieved to 12/27. DATA ENTRY ANALYST notified, EKG ordered.
[2022-04-13 06:42] LABS: Basophils # 0.1 K/mm3 (0-0.2); Basophils % 0.6 % (0.1-2.0); Eosinophils # 0.2 K/mm3 (0.0-0.4); Eosinophils % 1.8 % (0.1-12.0); Hematocrit 38.9 % (42.0-52.0); Hemoglobin 12.5 g/dL (14.1-18.0); Lymphocytes % 21.5 % (10-50); Mean Corpuscular HGB Conc 32.1 g/dL (31.8-35.4); Mean Corpuscular Hemoglobin 29.9 pg (27.0-31.2); Mean Corpuscular Volume 93.3 fl (80-94); Mean Platelet Volume 9.5 fl (7.4-10.4); Monocytes # 0.6 K/mm3 (0.1-1.0); Monocytes % 6.1 % (1.7-9.3); Neutrophils # 6.6 K/mm3 (1.8-7.8); Neutrophils % 70.1 % (37.0-80.0); Platelet Count 294 K/mm3 (142-424); Red Blood Count 4.17 M/mm3 (4.60-6.20); Red Cell Distribution Width 14.3 % (11.5-17.5); White Blood Count 9.3 K/mm3 (4.8-10.8)
[2022-04-13 06:49] LABS: POC Glucose,Bedside 239 (70-110)
[2022-04-13 06:49] LABS: POC Glucose,Bedside 323 (70-110)
[2022-04-13 06:51] LABS: Alanine Aminotransferase 17 U/L (12-78); Albumin Level 3.5 g/dl (3.5-5.0); Albumin/Globulin Ratio 1.2 (1.1-1.8); Alkaline Phosphatase 81 U/L (38-126); Anion Gap 19.4 mEq/L (5-15); Aspartate Amino Transferase 25 U/L (17-59); Bilirubin,Total 0.5 mg/dl (0.2-1.3); Blood Urea Nitrogen 37 mg/dl (9-20); Calcium 8.9 mg/dl (8.4-10.2); Carbon Dioxide 21 mmol/L (22.0-30.0); Chloride 103 mmol/L (98-107); Creatinine Clearance Estimated 45 mL/min (50-200); Estimated Glomerular Filt Rate 58 ml/min (>60); GFR (African American) 70 ML/MIN (>60); Globulin 2.9 g/dL (1.3-3.2); Glucose 229 mg/dl (74-100); Phosphorous 3.7 mg/dl (2.5-4.5); Potassium 4.4 mmoL/L (3.5-5.1); Sodium 139 mmol/L (136-145); Total Protein,Serum 6.4 g/dl (6.3-8.2)
[2022-04-13 08:00] VITALS: BP 130/70; PULSE 65; RESP 22; TEMP 36.6; O2SAT 95
[2022-04-13 11:42] LABS: POC Glucose,Bedside 288 (70-110)
[2022-04-13 12:00] VITALS: BP 113/62; PULSE 97; RESP 24; TEMP 36.8; O2SAT 90
--- NOTE | 2022-04-13 13:43 | EXP.DC.SUM ---
General Admission date:: 04/10/22 Discharge date: 04/13/22 HPI HPI HPI: 81 year old white male presented to cardiology office this afternoon for routine follow up visit and was found to be in a flutter rate of 142 upon presentation to office. Patient denies chest pain, soa, or palpitations. Patient resides at [facility]. Patient was transported to ED for further evaluation. Stat echo reveals a preliminary EF of 5 percent. Of note patient is still tachycardic in the 130s. No hx of afib or flutter. Last Echo 08/2021 revealed and EF of 50. 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 The remaining LAD has mild nonflow limiting 10% atheromatous plaque.? The circumflex artery is nondominant with mild calcified 10% luminal irregularities.? The right coronary artery is large and dominant with a proximal concentric 40% stenosis followed by distal 20 to 30% stenosis. At that time, medical management was favored. ED labs as follow: WBC 9.3, Hgb 15.5, Creatinine 1.60, Glucose is 372, Anion gap 19.8, Glucose 372, carbon dioxide 22, Trop 0.01. Patient remains aysmptomatic. I spoke with the nurse at [facility] and she reports patient has been in normal state of health and just came in today for routine follow up. Patient will be started on amio and heparin drip. Patient will undergo PRATIBHA and cardioversion in the am. Hospital Course Hospital Course Hospital Course: Patient was admitted for tachycardia induced cardiomyopathy with ejection fraction 5% and atrial flutter 2-1 heart rate 140s. Patient was started on amiodarone gtt. and was taken for transesophageal echo with cardioversion. Patient was successfully cardioverted to normal sinus rhythm and was transitioned to Amiodarone p.o. Patient was started on Xarelto for stroke prophylaxis. Limited echo showed mild improvement of ejection fraction approximately 10%. Patient was started on bisoprolol and tolerated medication well. Patient was discharged to his facility he arrived from. It is recommended that he follow-up with cardiology next week. Cardiology will consider resumption of SGLT2 inhibitor, DEE inhibitor, and further up titration of GDMT. Exam Data for Last 24 hours Vital signs and Labs for Last 24 Hours: Temp Pulse Resp BP Pulse Ox 97.9 F 65 22 130/70 95 04/13/22 08:00 04/13/22 08:00 04/13/22 08:00 04/13/22 08:00 04/13/22 08:00 Laboratory Results - last 24 hr 04/12/22 16:51: POC Glucose 296 H 04/12/22 20:09: POC Glucose 323 H* 04/13/22 05:16: POC Glucose 239 H 04/13/22 06:13: WBC 9.3, RBC 4.17 L, Hgb 12.5 L, Hct 38.9 L, MCV 93.3, MCH 29.9, MCHC 32.1, RDW 14.3, Plt Count 294, MPV 9.5, Neut % (Auto) 70.1, Lymph % (Auto) 21.5, [place] % (Auto) 6.1, Eos % (Auto) 1.8, Baso % (Auto) 0.6, Neut # (Auto) 6.6, Lymph # (Auto) 2.0, [place] # (Auto) 0.6, Eos # (Auto) 0.2, Baso # (Auto) 0.1 04/13/22 06:13: Sodium 139, Potassium 4.4, Chloride 103, Carbon Dioxide 21 L, Anion Gap 19.4 H, BUN 37 H, Creatinine 1.20, Estimated Creat Clear 45, Estimated GFR 58 L, Est GFR ( Amer) 70, Glucose 229 H, Calcium 8.9, Phosphorus 3.7, Total Bilirubin 0.5, AST 25, ALT 17 D, Alkaline Phosphatase 81, Total Protein 6.4, Albumin 3.5, Globulin 2.9, Albumin/Globulin Ratio 1.2 04/13/22 11:35: POC Glucose 288 H I & O for Last 24 hours: Intake & Output 04/10/22 04/11/22 04/12/22 04/13/22 23:59 23:59 23:59 23:59 Intake Total 377 / 681 1407 / 1407 1560 / 1680 360 / 360 Output Total 700 / 950 1425 / 1425 2410 / 2410 950 / 950 Balance -323 / -269 -18 / -18 -850 / -730 -590 / -590 Weight 60.384 kg 60.5 kg 67.404 kg 64.127 kg Constitutional Constitutional: no acute distress and cooperative *Routine Neck Exam Neck: Present supple; Absent JVD *Routine Respiratory Exam Respiratory: Present CTA bilaterally and symmetric chest movement; Ab
--- NOTE | 2022-04-13 14:41 | PC.NURSE ---
called report to lisa ortega [place]
== END 2022-04-13 14:59 | DRG 308 ==
LOC: ER 15:25 → 2ND 15:38
PROVIDERS: Internal Medicine; Admitting Provider Student in an Organized Health Care Education/Training Program; Emergency Provider Emergency Medicine; PCP Emergency Medicine; Visit Provider Student in an Organized Health Care Education/Training Program
DX: I48.92 Unspecified atrial flutter (principal); I50.21 Acute systolic (congestive) heart failure; N17.9 Acute kidney failure, unspecified; I11.0 Hypertensive heart disease with heart failure; I42.9 Cardiomyopathy, unspecified; E11.65 Type 2 diabetes mellitus with hyperglycemia; G62.9 Polyneuropathy, unspecified; I25.10 Atherosclerotic heart disease of native coronary artery without angina pectoris; E78.5 Hyperlipidemia, unspecified; I42.8 Other cardiomyopathies
CPT/HCPCS: 92960; 36415; 71045; 80048; 80053; 80061; 80076; 82570; 82962; 83036; 83735; 83880; 84100; 84300; 84436; 84443; 84479; 84484; 85025; 85610; 85730; 93005; 93306; 93308; 93312; 99291; C9803; J0282; J7060; U0003; U0005

== ENCOUNTER → 2022-05-19 17:43 | Outpatient (CLI) | payer MEDICARE, MEDICAID, SELFPAY | PROVIDERS: PCP Emergency Medicine; Visit Provider Emergency Medicine | DX: U07.1 COVID-19 (principal) | CPT/HCPCS: C9803; U0003; U0005 ==

== ENCOUNTER → 2022-06-06 11:24 | Outpatient (CLI) | payer MEDICARE, OTHER, MEDICAID, SELFPAY ==
[2022-06-06 11:49] LABS: Basophils # 0.1 K/mm3 (0-0.2); Basophils % 0.8 % (0.1-2.0); Eosinophils # 0.2 K/mm3 (0.0-0.4); Eosinophils % 2.9 % (0.1-12.0); Hematocrit 37.5 % (42.0-52.0); Hemoglobin 12.1 g/dL (14.1-18.0); Lymphocytes # 1.8 K/mm3 (0.7-4.5); Lymphocytes % 23.1 % (10-50); Mean Corpuscular HGB Conc 32.2 g/dL (31.8-35.4); Mean Corpuscular Hemoglobin 29.5 pg (27.0-31.2); Mean Corpuscular Volume 91.8 fl (80-94); Mean Platelet Volume 8.6 fl (7.4-10.4); Monocytes # 0.6 K/mm3 (0.1-1.0); Monocytes % 7.4 % (1.7-9.3); Neutrophils # 5.2 K/mm3 (1.8-7.8); Neutrophils % 65.7 % (37.0-80.0); Platelet Count 452 K/mm3 (142-424); Red Blood Count 4.09 M/mm3 (4.60-6.20); Red Cell Distribution Width 14.9 % (11.5-17.5); White Blood Count 7.9 K/mm3 (4.8-10.8)
[2022-06-06 12:44] LABS: Anion Gap 14.5 mEq/L (5-15); Blood Urea Nitrogen 20 mg/dl (9-20); Calcium 8.7 mg/dl (8.4-10.2); Carbon Dioxide 24 mmol/L (22.0-30.0); Chloride 103 mmol/L (98-107); Estimated Glomerular Filt Rate 58 ml/min (>60); GFR (African American) 70 ML/MIN (>60); Glucose 67 mg/dl (74-100); Magnesium 1.2 mg/dl (1.6-2.3); Potassium 4.5 mmoL/L (3.5-5.1); Sodium 137 mmol/L (136-145)
[2022-06-06 12:53] LABS: NT Pro Brain Natriuretic Pep. 1570 pg/mL (0-450)
== END ==
PROVIDERS: PCP Emergency Medicine; Visit Provider Physician Assistant
DX: E11.65 Type 2 diabetes mellitus with hyperglycemia (principal); E78.5 Hyperlipidemia, unspecified; I25.10 Atherosclerotic heart disease of native coronary artery without angina pectoris; I48.92 Unspecified atrial flutter; N17.9 Acute kidney failure, unspecified; I10 Essential (primary) hypertension; I44.7 Left bundle-branch block, unspecified; R94.31 Abnormal electrocardiogram [ECG] [EKG]; I63.9 Cerebral infarction, unspecified; I50.9 Heart failure, unspecified; Z79.84 Long term (current) use of oral hypoglycemic drugs
CPT/HCPCS: 36415; 80048; 83735; 83880; 85025

== ENCOUNTER → 2022-06-14 10:09 | Outpatient (CLI) | payer MEDICARE, OTHER, MEDICAID, SELFPAY ==
--- NOTE | 2022-06-14 10:15 | XR_ITS ---
FINAL REPORT CLINICAL HISTORY: Elbow pain x 3 days swelling and pain COMPARISON: none FINDINGS: RIGHT ELBOW SERIES Three views of the elbow were obtained. There is no acute fracture or dislocation. There are severe degenerative changes. There are corticated calcifications along the medial and lateral epicondyles. This may be due to chronic tendinitis or partial tears. The soft tissues are unremarkable. IMPRESSION: Degenerative changes with no acute bony abnormality. Reviewed, Interpreted and Dictated by Latasha Fontenot MD Transcribed by Mell Muñiz Authenticated and [facility]
== END ==
PROVIDERS: PCP Nurse Practitioner Family; Visit Provider Nurse Practitioner Family
DX: M25.521 Pain in right elbow (principal)
CPT/HCPCS: 73080

== ENCOUNTER → 2022-09-14 10:03 | Outpatient (CLI) | payer MEDICARE, OTHER, MEDICAID, SELFPAY ==
--- NOTE | 2022-09-14 10:05 | CA_ITS ---
FINAL REPORT CLINICAL HISTORY: Bilateral lower extremity edema COMPARISON: None FINDINGS: Color Doppler, duplex Doppler and compression sonography of the bilateral lower extremities was performed. There is no evidence of deep venous thrombosis from the level of the groin to the calf. The deep veins are patent and compressible. IMPRESSION: No evidence of deep venous thrombosis bilateral lower extremities. Reviewed, Interpreted and Dictated by Teofilo Patricio III, MD Transcribed by Mell Muñiz Authenticated and [facility]
== END ==
PROVIDERS: PCP Emergency Medicine; Visit Provider Nurse Practitioner
DX: M79.671 Pain in right foot (principal); R60.0 Localized edema
CPT/HCPCS: 93970

== ENCOUNTER → 2022-09-21 09:31 | Outpatient (CLI) | payer MEDICARE, OTHER, MEDICAID, SELFPAY ==
--- NOTE | 2022-09-21 09:35 | US_ITS ---
FINAL REPORT CLINICAL HISTORY: WOUND LT HEEL,WOULD RT BACK OF THIGH,DM,HTN,HLD,CAD,EDEMA,RUBOR BILATERAL FEET COMPARISON: None FINDINGS: ANKLE-BRACHIAL PRESSURE INDICES Pressure indices are as follows: RIGHT LOWER EXTREMITY: Ankle-brachial pressure index: 1.26 Comments: Normal LEFT LOWER EXTREMITY: Ankle-brachial pressure index: 1.42 Comments: Normal IMPRESSION: No evidence of significant obstructive peripheral vascular disease of the lower extremities Reviewed, Interpreted and Dictated by Neo Monaco MD Transcribed by Mell Muñiz Authenticated and [facility]
== END ==
LOC: RT 09:32
PROVIDERS: PCP Emergency Medicine; Visit Provider Nurse Practitioner
DX: I50.20 Unspecified systolic (congestive) heart failure; E11.65 Type 2 diabetes mellitus with hyperglycemia; I11.0 Hypertensive heart disease with heart failure; Z79.84 Long term (current) use of oral hypoglycemic drugs
CPT/HCPCS: 93308; 93923

== ENCOUNTER 2022-09-24 19:59 | Observation (INO) | payer MEDICARE, OTHER, MEDICAID, SELFPAY ==
[2022-09-24] VITALS (7 sets, daily range): BP systolic 116–152; BP diastolic 52–87; PULSE 48–78; RESP 16; TEMP 36.8; O2SAT 91–99; BMI 22.3
--- NOTE | 2022-09-24 20:06 | XR_ITS ---
PROCEDURE INFORMATION: Exam: XR Chest Exam date and time: 09/24/2022 8:48 PM Age: 81 years old Clinical indication: Sternal or substernal pain; Additional info: Original complaint cp TECHNIQUE: Imaging protocol: Radiologic exam of the chest. Views: 1 view. Upright portable AP exam 8:49 p.m. COMPARISON: CR XR CHEST PORTABLE 04/10/2022 2:22 PM FINDINGS: Lungs: Mild hypoventilation. Chronic granulomatous changes in the right lung. No focal consolidation. Pulmonary vessels do not appear congested. Pleural spaces: Unremarkable. No significant pleural effusion. No pneumothorax. Heart/Mediastinum: Cardiac size appears within upper limits normal. Chronic tortuous or ectatic thoracic aorta, unchanged. Bones/joints: Chronic appearing anterior right 2nd and 6th rib fracture deformities.There are spinal degenerative changes, with multilevel disc narrrowing and spondylosis. IMPRESSION: 1. Tortuous or ectatic thoracic aorta is unchanged. 2. Chronic granulomatous changes. No consolidation or findings of vascular congestion. 3. Old right rib fractures; no acute fracture detected.
--- NOTE | 2022-09-24 20:26 | ECG_ITS ---
APPROVED REPORT Exam: Resting ECG HR:51 bpm ECG Measurements Heart Rate 51 AXES HI 318 P 81 QRSd 174 QRS 18 QT 549 T 90 QTc 526 Conclusion SINUS BRADYCARDIA WITH FIRST DEGREE AV BLOCK LEFT BUNDLE BRANCH BLOCK [120+ ms QRS DURATION, 80+ ms Q/S IN V1/V2, 85+ ms R IN I/aVL/V5/V6] ABNORMAL ECG INTERPRETATION BASED ON A DEFAULT AGE OF 40 YEARS UNCONFIRMED REPORT Electronically signed by : Neftaly Jain MD 09/25/2022 22:05:22
[2022-09-24 20:39] LABS: Basophils # 0.1 K/mm3 (0-0.2); Basophils % 0.6 % (0.1-2.0); Eosinophils # 0.2 K/mm3 (0.0-0.4); Eosinophils % 1.7 % (0.1-12.0); Hematocrit 39.8 % (42.0-52.0); Hemoglobin 12.8 g/dL (14.1-18.0); Lymphocytes # 3.1 K/mm3 (0.7-4.5); Mean Corpuscular HGB Conc 32.1 g/dL (31.8-35.4); Mean Corpuscular Hemoglobin 29.2 pg (27.0-31.2); Mean Corpuscular Volume 90.9 fl (80-94); Mean Platelet Volume 8.8 fl (7.4-10.4); Monocytes % 8.6 % (1.7-9.3); Neutrophils # 7.5 K/mm3 (1.8-7.8); Neutrophils % 63.1 % (37.0-80.0); Platelet Count 516 K/mm3 (142-424); Red Blood Count 4.38 M/mm3 (4.60-6.20); Red Cell Distribution Width 14.3 % (11.5-17.5); White Blood Count 11.9 K/mm3 (4.8-10.8)
[2022-09-24 20:40] LABS: Chloride 98 mmol/L (98-107); Potassium 4.5 mmoL/L (3.5-5.1); Sodium 138 mmol/L (136-145)
[2022-09-24 20:42] LABS: Alanine Aminotransferase 186 U/L (12-78); Alkaline Phosphatase 88 U/L (38-126); Aspartate Amino Transferase 117 U/L (17-59); Bilirubin,Total 0.4 mg/dl (0.2-1.3); Blood Urea Nitrogen 37 mg/dl (9-20); Creatinine Clearance Estimated 31 mL/min (50-200); Estimated Glomerular Filt Rate 36 ml/min (>60); GFR (African American) 44 ML/MIN (>60); Lipase 164 U/L (23-300)
[2022-09-24 20:43] LABS: Albumin Level 3.7 g/dl (3.5-5.0); Anion Gap 21.5 mEq/L (5-15); Calcium 8.4 mg/dl (8.4-10.2); Carbon Dioxide 23 mmol/L (22.0-30.0); Globulin 3.7 g/dL (1.3-3.2); Glucose 187 mg/dl (74-100); Total Protein,Serum 7.4 g/dl (6.3-8.2)
[2022-09-24 20:48] LABS: C-Reactive Protein 57.8 mg/L (0-4)
--- NOTE | 2022-09-24 20:50 | CT_ITS ---
PROCEDURE INFORMATION: Exam: CT Abdomen And Pelvis With Contrast Exam date and time: 09/24/2022 9:09 PM Age: 81 years old Clinical indication: Abdominal pain TECHNIQUE: Imaging protocol: Computed tomography of the abdomen and pelvis with contrast. Radiation optimization: All CT scans at this facility use at least one of these dose optimization techniques: automated exposure control; mA and/or kV adjustment per patient size (includes targeted exams where dose is matched to clinical indication); or iterative reconstruction. Contrast material: ISOVUE; Contrast volume: 75 ml; Contrast route: IV; REPORTING DATA: Count of CT and Cardiac NM exams in prior 12 months: This patient has received 0 known CTs and 0 known cardiac nuclear medicine studies in the 12 months prior to the current study. COMPARISON: CT ABDOMEN PELVIS W CON 07/12/2021 7:44 PM FINDINGS: Lungs: Mild atelectasis or interstitial scarring in the posterior lower lungs. No acute findings. No consolidation. Calcified right pulmonary granulomas. Coronary arteries: Some coronary artery calcifications. Liver: The liver is normal. Gallbladder and bile ducts: Possible tiny polyp or low-density gallstone in the posterior gallbladder fundus, versus artifact from an adjacent blood vessel; see axial series 3, image 33, coronal series 1001, image 33, sagittal series 1002, image 16. No calcified stones. No wall thickening. No biliary dilatation. Pancreas: Thinned, atrophic pancreas. No ductal dilatation or mass. Spleen: No splenomegaly. Calcified splenic granulomas. Adrenal glands: The adrenal glands are normal. Kidneys and ureters: Right kidney appears normal. There is a large simple cyst at the lower pole of the left kidney measuring approximally 5.3 cm coronal image 34, with HU density of 6. Another 7 mm subcentimeter hypoattenuating lesion in the lower lateral left renal cortex series 3, image 51, probably also a cyst but too small to accurately characterize. There is no hydronephrosis, hydroureter, or obstructing calcified ureteral stone. Stomach and bowel: No acute findings in the stomach. A small hiatal hernia.There is diverticulosis coli, without evidence of acute diverticulitis.There is no evidence of intestinal perforation or obstruction. Appendix: No findings of appendicitis. The appendix is located high in the epigastrium, in the midline; coronal series 1001, images 24 -27; the cecum is in the epigastrium abutting the stomach. Intraperitoneal space: There is no free intraperitoneal air. There is no significant free intraperitoneal fluid. Vasculature: Tortuous abdominal aorta. Multiple plaques. No aneurysm. Scattered atherosclerotic plaques throughout the abdomen and pelvis. Stenotic proximal right celiac trunk sagittal series 1002, images 56 -57 ; the artery also appears stenotic on axial series 3, image 29, with post-stenotic dilatation beyond this up to 11 mm on series 3, image 31. 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 Atherosclerotic findings are suboptimally evaluated on this study which was not performed with CTA technique. Lymph nodes: No significantly enlarged lymph nodes by short axis criteria. Urinary bladder: The bladder is normal. Reproductive: Heterogeneous prostate, not significantly enlarged. Seminal vesicles are unremarkable. Bones/joints: There are spinal degenerative changes, with multilevel disc narrrowing and spondylosis. 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 Soft tissues: Small fatty left inguinal hernia, no herniated bowel loops. However, there is some soft
--- NOTE | 2022-09-24 20:58 | XR_ITS ---
PROCEDURE INFORMATION: Exam: XR Left Foot Exam date and time: 09/24/2022 9:18 PM Age: 81 years old Clinical indication: Other: Foot ulcer TECHNIQUE: Imaging protocol: Radiologic exam of the left foot. Views: 3 or more views. Portable exam. COMPARISON: US ARTERIAL LOWER EXT REST 09/21/2022 10:04 AM FINDINGS: Bones/joints: Bones appear mildly demineralized. No acute fracture or dislocation. No lytic destructive lesions to suggest osteomyelitis. No acute periostitis. Minimal spurring of the tip of the medial malleolus. There is a mild deformity of the diaphysis of the 4th proximal phalanx which has the appearance of old healed trauma. There are flexion deformities of the toes suggested on lateral series 3, but this may just be positional artifact. There is a prominent plantar calcaneal spur. Soft tissues: Mild soft tissue swelling. No soft tissue emphysema.No radiopaque foreign bodies seen within the soft tissues. The foot ulcer is suboptimally delineated due to overlying artifacts. IMPRESSION: 1. No findings to suggest osteomyelitis or septic arthritis in the foot. 2. No acute fracture or dislocation. 3. Degenerative changes, as above. 4. Soft tissue swelling.
[2022-09-24 21:07] LABS: Procalcitonin 0.137 ng/mL (0.0-2.0)
[2022-09-24 21:10] LABS: Erythrocyte Sedimentation Rate 66 mm/hr (0-20); Troponin I < 0.01 ng/ml (0.00-0.034)
--- NOTE | 2022-09-24 21:45 | HMH.EDABDPAI ---
Discharge Plan Disposition Patient Disposition: Admitted As Inpatient Condition: Fair Chief Complaint: Abdominal Pain Prescriptions Prescriptions: No Action sennosides [senna] 8.6 mg tablet 8.6 mg PO DAILY PRN (Reason: Constipation) Jardiance 10 mg tablet 10 mg PO DAILY Hold Instructions: will restart following cardiology appt lactulose 10 gram/15 mL solution 30 ml PO DAILY PRN (Reason: Constipation) acetaminophen 500 mg capsule 500 mg PO Q4H PRN (Reason: pain) amiodarone 200 mg tablet 200 mg PO BID Qty: 60 0RF ondansetron HCl 4 mg tablet 4 mg PO DAILY PRN aspirin [Adult Low Dose Aspirin] 81 mg tablet,delayed release (DR/EC) 81 mg PO DAILY loperamide 2 mg capsule 2 mg PO Q4H PRN (Reason: Diarrhea) ascorbate calcium (vitamin C) 500 mg tablet 500 mg PO BID lisinopril 40 mg tablet 20 mg PO DAILY Hold Instructions: Resume on 04/18/22. will resume following caridology atorvastatin 10 MG tablet 10 mg PO DAILY Label Comments: TAKE 1 TABLET BY MOUTH EVERY DAY glipizide 10 MG tablet 10 mg PO DAILY Label Comments: TAKE 1 TABLET BY MOUTH EVERY DAY metformin 1,000 MG tablet 1,000 mg PO BID Label Comments: TAKE 1 TABLET BY MOUTH TWICE DAILY Rx Instructions: AT 0900 & 1700 omeprazole 20 MG capsule,delayed release(DR/EC) 20 mg PO DAILY Label Comments: TAKE 1 CAPSULE BY MOUTH EVERY DAY loratadine 10 MG tablet 10 mg PO DAILY Label Comments: TAKE 1 TABLET BY MOUTH EVERY DAY spironolactone 25 MG tablet 25 mg PO DAILY Hold Instructions: Resume on 04/18/22. will resume following cardiology furosemide 20 MG tablet 20 mg PO DAILY bisoprolol fumarate 5 mg Tablet 5 mg PO DAILY 30 Days Qty: 30 3RF Xarelto 10 mg Tablet 20 mg PO QPMWITHMEAL 30 Days Qty: 60 0RF Referrals Follow up/Referrals: Garrett Berumen MD [Primary Care Provider] - See instructions Clinical Impressions Clinical Impression: Colitis, Cellulitis of leg, Blister of scrotum with infection, Hernia, inguinal, left Instructions Patient Instructions: DI for Acute Abdominal Pain Discharge ED Provider: Jenny Rocha Abdominal Pain HPI General Chief Complaint: Abdominal Pain Stated Complaint: cp Time Seen by Provider: 09/24/22 21:00 Mode of Arrival: EMS Source of Information: Patient Limitations: No Limitations Description of Symptoms (Recalled from ER Triage Doc. by RN): originally ems were called to half-way for chest pain evaluation; upon presentation, patient denies true chest pain, however points at his left upper quad abd for his pain location and states it radiates downward into the left groin. Report last bm: 2 days ago. States I've been trying to tell them I've been having rounds of diarrhea but no one listens to me . Afebrile. Denies dyspnea. Denies n/v. Denies recent sick contact. History of Present Illness HPI narrative: Patient is a 81-year-old male who is here secondary to abdominal pain chest pain. Patient stated he had left-sided chest pain as well as left-sided upper abdomen. In. Patient denies any nausea vomiting he is having diffuse diarrhea. Patient has no fevers and chills. Patient has no urinary symptoms. Patient stated left upper quadrant pain goes up to the left lower quadrant left groin and left testicle area. No swelling of the testicle. No history of inguinal hernia or diverticulitis. He is also has a heel wound on his left heel he stated that he has some dressing on it and has been doing well is not bothering him or causing pain. He had some swelling of his right lower leg more so than left but stated no injury to his lower extremity in the right. He did have some pain in the right knee he stated. And the half-way has wrapped it complaint: abdominal pain Onset (ago): day(s) Consistency: constant Location: [facility] Severity: moderate Severity scale (
--- NOTE | 2022-09-24 23:10 | EXP.HP ---
History of Present Illness *Admission Date: 09/24/22 *Reason for visit:: abdominal pain, diarrhea *History of present illness: Mr. White is an 81 year old male, resident at a [facility], who presented to the ER with complaints of lower quadrant abdominal pain and diarrhea. Work-up in the ER, CBC demonstrated leukocytosis with WBC 11.9. Chemistry revealed ANJALI with CR 1.80; baseline 1.20. AST and ALT were both elevated, along with sed rate and CRP. CT abdomen and pelvis demonstrated diverticulosis coli, without evidence of acute diverticulitis. Patient noted to have swelling of RLE with erythema. Also noted to have erythema with open wounds/ruptured blister on posterior upper thigh. Discussed with ER physician, Dr. Rocha, concern of infection in scrotal area, along with RLE. Agree with need for admission for further evaluation and work-up. [facility] Disclaimer: The information contained in this section may have been updated after the patient was seen, as this information can be updated by other users. Medical History (Updated 09/24/22 @ 23:45 by Yesi Kumar APRN) Abnormal electrocardiography ANJALI (acute kidney injury) Arthritis Atrial flutter CAD (coronary artery disease) CAD in [place] artery Cardiomyopathy CKD (chronic kidney disease) stage 3, GFR 30-59 ml/min Diabetes mellitus Dyspnea Edema HTN (hypertension) Hyperlipidemia Left bundle branch block (LBBB) Overweight (BMI 25.0-29.9) Peripheral neuropathy Wound of foot Surgical History (Updated 09/24/22 @ 23:22 by Yesi Kumar APRN) History of cardiac cath History of right knee surgery Family History Other No significant family history Social History (Updated 09/25/22 @ 00:23 by Italo Garzon RN) Smoking Status: Former smoker alcohol intake: never substance use type: denies use current occupational status: retired Travel in the last 8 weeks: None housing: [facility] caffeine: No Review of Systems Review of Systems Review of systems:: pertinent systems reviewed and negative unless documented below *Cardiovascular Cardiovascular: Denies chest pain, Denies dyspnea and Denies palpitations *Respiratory Respiratory: Denies dyspnea *Gastrointestinal Gastrointestinal: Reports abdominal pain (radiating to left groin) and Reports diarrhea ( diarrhea for several days. ) *Musculoskeletal Musculoskeletal: Reports arthralgias (right knee) Integumentary/Breasts Skin/Breast: Reports wounds (Left heel wound - dr recently scraped it and he didn't numb it. ) Endocrine Endocrine: Denies palpitations Meds Home Medications and Allergies Home Medications Medication Instructions Recorded Confirmed Type atorvastatin 10 mg tablet 10 mg PO DAILY Cholesterol 04/03/19 09/25/22 History glipizide 10 mg tablet 10 mg PO DAILY Diabetes 04/03/19 09/25/22 History loratadine 10 mg tablet 10 mg PO DAILY Allergy symptoms 04/03/19 09/25/22 History metformin 1,000 mg tablet 1,000 mg PO BIDWMEAL Diabetes 04/03/19 09/25/22 History omeprazole 20 mg capsule,delayed 20 mg PO DAILY Acid reflux 04/03/19 09/25/22 History release aspirin 81 mg tablet,delayed 81 mg PO DAILY HEART HEALTH 05/01/21 09/25/22 History release (Adult Low Dose Aspirin) acetaminophen 500 mg capsule 500 mg PO Q4HP PRN Pain, Mild 09/20/21 09/25/22 History empagliflozin 10 mg tablet 10 mg PO DAILY Diabetes 09/20/21 09/25/22 History (Jardiance) lactulose 10 gram/15 mL oral 30 ml PO DAILY PRN Constipation 09/20/21 09/25/22 History solution sennosides 8.6 mg tablet (senna) 8.6 mg PO DAILYP PRN Constipation 09/20/21 09/25/22 History furosemide 20 mg tablet 20 mg PO DAILY Fluid 09/22/21 09/25/22 History loperamide 2 mg capsule 2 mg PO Q4HP PRN Diarrhea 10/03/21 09/25/22 History ascorbate calcium (vitamin C) 500 500 mg PO BID Supplement 04/10/22 09/25/22 History mg tablet ondansetron HCl 4 mg tablet 4 mg PO Q6HP PRN nausea 09/11/22 05
[2022-09-24 23:45] LABS: Troponin I 0.01 ng/ml (0.00-0.034)
[2022-09-24 23:48] LABS: Coronavirus 19, PCR Not Detected (NotDetected); Influenza A, PCR Not Detected (NotDetected); Influenza B, PCR Not Detected (NotDetected)
--- NOTE | 2022-09-24 23:51 | PC.NURSE ---
Pt, arrived to floor at this time.
[2022-09-25] VITALS (9 sets, daily range): BP systolic 102–144; BP diastolic 56–72; PULSE 40–80; RESP 17–20; TEMP 36.4–37; O2SAT 93–99; BMI 24.0
[2022-09-25 03:05] LABS: Troponin I 0.02 ng/ml (0.00-0.034)
--- NOTE | 2022-09-25 03:19 | PC.NURSE ---
Pt. has multiple wounds on his sacrum, left heel with a wound, xeroform and abd paid with tape applied, left heel rosalinda boot placed back on foot. Right foot with a boggy wound, pitting edema in right foot, all pictures of wounds are in wound nurses note.
[2022-09-25 05:26] LABS: POC Glucose,Bedside 133 (70-110)
[2022-09-25 06:13] LABS: Basophils % 0.5 % (0.1-2.0); Eosinophils # 0.2 K/mm3 (0.0-0.4); Eosinophils % 2.1 % (0.1-12.0); Hematocrit 34.2 % (42.0-52.0); Lymphocytes # 1.8 K/mm3 (0.7-4.5); Lymphocytes % 21.3 % (10-50); Mean Corpuscular HGB Conc 32.1 g/dL (31.8-35.4); Mean Corpuscular Hemoglobin 29.3 pg (27.0-31.2); Mean Corpuscular Volume 91.1 fl (80-94); Mean Platelet Volume 8.5 fl (7.4-10.4); Monocytes # 0.8 K/mm3 (0.1-1.0); Neutrophils # 5.6 K/mm3 (1.8-7.8); Neutrophils % 66.1 % (37.0-80.0); Platelet Count 388 K/mm3 (142-424); Red Blood Count 3.76 M/mm3 (4.60-6.20); Red Cell Distribution Width 14.4 % (11.5-17.5); White Blood Count 8.4 K/mm3 (4.8-10.8)
[2022-09-25 06:16] LABS: Alanine Aminotransferase 132 U/L (12-78); Albumin Level 2.7 g/dl (3.5-5.0); Albumin/Globulin Ratio 0.9 (1.1-1.8); Alkaline Phosphatase 68 U/L (38-126); Aspartate Amino Transferase 72 U/L (17-59); Bilirubin,Total 0.4 mg/dl (0.2-1.3); Blood Urea Nitrogen 35 mg/dl (9-20); Calcium 7.6 mg/dl (8.4-10.2); Carbon Dioxide 22 mmol/L (22.0-30.0); Chloride 105 mmol/L (98-107); Chol/HDL Ratio 2.3 (1-3.5); Cholesterol 67 mg/dl (140-200); Creatinine Clearance Estimated 43 mL/min (50-200); Estimated Glomerular Filt Rate 49 ml/min (>60); GFR (African American) 59 ML/MIN (>60); Glucose 109 mg/dl (74-100); HDL Cholesterol 29 mg/dl (40-60); Magnesium 1.6 mg/dl (1.6-2.3); Phosphorous 3.8 mg/dl (2.5-4.5); Potassium 4.1 mmoL/L (3.5-5.1); Total Protein,Serum 5.7 g/dl (6.3-8.2); Triglycerides 61 mg/dl (30-150); VLDL Cholesterol 12 mg/dL (0-40)
[2022-09-25 06:17] LABS: Anion Gap 15.1 mEq/L (5-15); Sodium 138 mmol/L (136-145)
[2022-09-25 06:30] LABS: Direct LDL Cholesterol < 30.00 mg/dL (100-129)
--- NOTE | 2022-09-25 07:15 | P.CONPHA_ITS ---
Pharmacy Intervention Comments: MEDICATION RECONCILIATION COMPLETED ON PATIENT USING MAR FROM [facility]. -USMAN RAMIREZ, ADARSHD
--- NOTE | 2022-09-25 07:15 | HMH.PHAINT1 ---
Pharmacy Intervention Comments: MEDICATION RECONCILIATION COMPLETED ON PATIENT USING MAR FROM SNF. -USMAN RAMIREZ, ADARSHD
--- NOTE | 2022-09-25 08:13 | EXP.PN ---
Subjective *Date: 09/25/22 *Time: 08:35 Interval history: Date of service September 25, 2022 The patient reports no acute events overnight. He describes effective bowel elimination and good urine output. Nursing staff report that he remains afebrile with stable heart rates in the 50s and stable blood pressures. He is saturating appropriately on room air. His morning labs have been reviewed, discussed and I have personally interpreted as follows a CBC with a resolved leukocytosis and hemoglobin of 11 and normal platelet count. His electrolytes are stable and his creatinine has improved. Exam Data for Last 24 hours Vital signs and Labs for Last 24 Hours: Temp Pulse Resp BP Pulse Ox 97.6 F 47 L 18 129/60 99 09/25/22 07:34 09/25/22 07:34 09/25/22 07:34 09/25/22 07:34 09/25/22 07:34 Laboratory Results - last 24 hr 09/24/22 20:05: WBC 11.9 H, RBC 4.38 L, Hgb 12.8 L, Hct 39.8 L, MCV 90.9, MCH 29.2, MCHC 32.1, RDW 14.3, Plt Count 516 H, MPV 8.8, Neut % (Auto) 63.1, Lymph % (Auto) 26.0, Weld % (Auto) 8.6, Eos % (Auto) 1.7, Baso % (Auto) 0.6, Neut # (Auto) 7.5, Lymph # (Auto) 3.1, Weld # (Auto) 1.0, Eos # (Auto) 0.2, Baso # (Auto) 0.1, ESR 66 H 09/24/22 20:05: Sodium 138, Potassium 4.5, Chloride 98, Carbon Dioxide 23, Anion Gap 21.5 H, BUN 37 H, Creatinine 1.80 H, Estimated Creat Clear 31, Estimated GFR 36 L, Est GFR ( Amer) 44 L, Glucose 187 H, Calcium 8.4, Total Bilirubin 0.4, AST 117 H, ALT 186 H, Alkaline Phosphatase 88, Troponin I < 0.01, C-Reactive Protein 57.8 H, Total Protein 7.4, Albumin 3.7, Globulin 3.7 H, Albumin/Globulin Ratio 1.0 L, Lipase 164, Procalcitonin 0.137 09/24/22 23:10: Troponin I 0.01 09/24/22 23:28: SARS-CoV-2 (PCR) Not detected, Influenza A Untype (PCR) Not detected, Influenza Type B (PCR) Not detected 09/25/22 02:30: Troponin I 0.02 09/25/22 05:15: POC Glucose 133 H 09/25/22 05:45: WBC 8.4 D, RBC 3.76 L, Hgb 11.0 L D, Hct 34.2 L, MCV 91.1, MCH 29.3, MCHC 32.1, RDW 14.4, Plt Count 388, MPV 8.5, Neut % (Auto) 66.1, Lymph % (Auto) 21.3, Weld % (Auto) 10.0 H, Eos % (Auto) 2.1, Baso % (Auto) 0.5, Neut # (Auto) 5.6, Lymph # (Auto) 1.8, Weld # (Auto) 0.8, Eos # (Auto) 0.2, Baso # (Auto) 0.0 09/25/22 05:45: Sodium 138, Potassium 4.1, Chloride 105, Carbon Dioxide 22, Anion Gap 15.1 H, BUN 35 H, Creatinine 1.40 H D, Estimated Creat Clear 43, Estimated GFR 49 L, Est GFR ( Amer) 59 D, Glucose 109 H D, Calcium 7.6 L, Phosphorus 3.8, Magnesium 1.6, Total Bilirubin 0.4, AST 72 H D, ALT 132 H D, Alkaline Phosphatase 68, Total Protein 5.7 L, Albumin 2.7 L D, Globulin 3.0, Albumin/Globulin Ratio 0.9 L, Triglycerides 61, Cholesterol 67 L, LDL Cholesterol Direct < 30.00 L, VLDL Cholesterol 12, HDL Cholesterol 29 L, Cholesterol/HDL Ratio 2.3 I & O for Last 24 hours: Intake & Output 09/22/22 09/23/22 09/24/22 09/25/22 23:59 23:59 23:59 23:59 Intake Total 100 / 100 Output Total 1350 / 1350 Balance -1250 / -1250 Weight 66.678 kg 72.15 kg Constitutional Constitutional: no acute distress, chronically ill appearing and cooperative *Routine HEENT Exam Head: Present normocephalic Eye: Present EOMI and PERRL ENT: Present mucous membranes moist *Routine Neck Exam Neck: Present supple; Absent lymphadenopathy *Routine Respiratory Exam Respiratory: Present rhonchi and normal respiratory effort *Routine Cardiovascular Exam Cardiovascular: Present RRR *Routine Abdominal Exam Abdominal: Present soft and normoactive bowel sounds; Absent tenderness *Routine Extremities Exam Extremities: Present full ROM; Absent cyanosis, clubbing or edema *Routine Skin Exam Skin: Present warm; Absent rash *Routine Neurological Exam Neurological: Present alert, oriented X3, moving all extremities and normal speech Routine Psychiatric Exam Psychiatric: Present cooperative Assessment and Plan *Assessment and plan (1) Diarrhea: Status: Acute Qualifiers: Diarrhea type: unspecified type Qualified Code(s): R1
[2022-09-25 08:22] LABS: Hemoglobin A1C 6.9 % (4.0-6.0)
--- NOTE | 2022-09-25 08:25 | SW/DCPLANNER ---
Addendum entered by Tiny Grullon 09/26/22 09:59: I have updated Edilia newman/ Loan Rahman that this patient will return today. Original Note: This patient currently resides at [facility] level of care. Updated patient information will be faxed and I will continue to follow up with Edilia at [facility]. Discharge date is unknown at this time.
--- NOTE | 2022-09-25 11:21 | HMH.PTEV ---
Physical Therapy Evaluation Rehab PT IP Evaluation Start: 09/25/22 08:07 Freq: ONCE Status: Active Protocol: Document 09/25/22 09:30 PHORSHARON (Rec: 09/25/22 11:21 PHORNE [id number]) Subjective/History History History 81 yowm adm to [facility] with ANJALI, Colitis, and cellulitis. He is a [facility] home resident at baseline and requires assistance with all bed mobility, transfers, and does not ambulate. He has hx of HF and chronic LE edema related to this. He reports he requires assist of 2 to stand to transfer to w/c at baseline . He also presents with multiple wounds (L heel, R post thigh, sacrum, post scrotum) upon admission. Subjective Subjective Pt reports he is TTP around all wounds this am, but no pain at rest. Rehab PT IP Eval Objective Appearance Patient Behavior Appropriate Patient Orientation Person,Place,Time Difficulty following instructions none Speech Pattern Clear Ambulation Patient Able to Ambulate No Balance Ability to Arise Unable Sitting Balance Leans or slides in chair Dynamic Sitting Balance Ability Poor Transfers Bed Transfer Ability Maximum x 1 (75% assist) Chair Transfer Ability Total/Dependent (100%) ROM All Extremities PT ROM Status ABN Abnormal ROM Comment limited due to pt rigidity and stiffness MMT All Extremities PT MMT ABN Abnormal MMT Grade grossly 2+/5 throughout Rehab PT IP prob,goals,plan Problems Date of Evaluation: 09/25/22 PT IP Problems Bed Mobility,Transfers Rehab Potential Rehab Potential Fair Plan PT Intervention Plan Bed Mobility,Transfers, Therapeutic Exercise PT Plan Frequency Daily Duration LOS Discharge Goals Bed Transfer Ability Moderate x 2 (50% assist) Sit to Stand Chair Transfer Ability Maximum x 2 (75% assist) Discharge Plan PT Discharge Plan Pt is currently most appropriate to return to SNF once medically stable for d/c. He appears to be close to his baseline for mobility, which
--- NOTE | 2022-09-25 11:32 | HMH.PTWOUND ---
Rehab Inpt Wound Evaluation Rehab IP Wound Evaluation Start: 09/25/22 08:18 Freq: ONCE Status: Active Protocol: Document 09/25/22 09:30 PHORSHARON (Rec: 09/25/22 11:32 PHORNE [id number]) Rehab PT Wound Assessment Subjective Subjective 81 yowm adm to [facility] with ANJALI, Colitis, and cellulitis. He is a ns home resident at baseline and requires assistance with all bed mobility, transfers, and does not ambulate. He has hx of HF and chronic LE edema related to this. He reports he requires assist of 2 to stand to transfer to w/c at baseline . He also presents with multiple wounds (L heel, R post thigh, sacrum, post scrotum) upon admission. Wound Posterior Scrotum Wound Type MASD Is This a Chronic Wound Yes Wound Length (cm) 1.5 Wound Width (cm) 1.0 Wound Depth (cm) 0.1 Wound Bed Appearance [place] Wound Margins Description Indistinct Surrounding Tissue Appearance [place],Bright Red Wound Drainage Description Serous Drainage Amount Small Dressing Change Patient Tolerance Tolerated Well Sacrum Wound Type Pressure Ulcer Is This a Chronic Wound Yes Wound Staging Stage II Query Text:Stage I - Unbroken, red skin, no blanching. Stage II - Skin broken, superficial skin loss involving epidermis alone or also dermis. Partial loss of skin layers. Stage III - Pressure area involves epidermis, dermis and subcutaneous tissue, full thickness skin loss. Stage IV - Pressure area involves epidermis, subcutaneous tissue, bone and other supportive tissue. Full thickness skin loss with extensive destruction of underlying tissue and structures. Wound Length (cm) 1.0 Wound Width (cm) 1.0 Wound Depth (cm) 0.1 Wound Bed Appearance Beefy Red Percentage Granulated (%) 100 Wound Margins Description Well Defined Surrounding Tissue Appearance Bright Red,Dark Red Primary Dressing Composite Comment sacral optifoam Wound Debridement Method Gauze Wound Debridement Amount of Tissue None Removed Right Pos
[2022-09-25 11:50] LABS: POC Glucose,Bedside 184 (70-110)
[2022-09-25 16:44] LABS: POC Glucose,Bedside 241 (70-110)
--- NOTE | 2022-09-25 17:45 | PC.NURSE ---
PT IS RESTING IN BED. ALERT AND ORIENTED X3. EATING AND DRINKING WELL. PT HAS BEEN ASSISTED WITH TURNING AND REPOSITIONING IN THE BED. LUNG SOUNDS DIMINISHED WITH MINIMAL SCATTERED RHONCHI. ABDOMEN FIRM/TENDER WITH ACTIVE BOWEL SOUNDS. MULTIPLE AREAS OF SKIN BREAKDOWN NOTED. MOISTURE BARRIER APPLIED TO SCROTUM. WILL CONTINUE TO MONITOR.
[2022-09-25 21:19] LABS: POC Glucose,Bedside 198 (70-110)
[2022-09-26] VITALS: BP 109/52; PULSE 40; PULSE 61; RESP 17; TEMP 36.7; O2SAT 91
[2022-09-26 04:00] VITALS: BP 114/54; PULSE 45; PULSE 50; RESP 17; TEMP 36.7; O2SAT 96; BMI 24.3
[2022-09-26 06:09] LABS: POC Glucose,Bedside 113 (70-110)
[2022-09-26 07:29] VITALS: BP 126/59; PULSE 51; RESP 17; TEMP 36.6; O2SAT 94
[2022-09-26 08:00] VITALS: PULSE 50
--- NOTE | 2022-09-26 11:07 | EXP.DC.SUM ---
General Admission date:: 09/24/22 Discharge date: 09/26/22 HPI HPI HPI: Mr. White is an 81 year old male, resident at a long-term, who presented to the ER with complaints of lower quadrant abdominal pain and diarrhea. Work-up in the ER, CBC demonstrated leukocytosis with WBC 11.9. Chemistry revealed ANJALI with CR 1.80; baseline 1.20. AST and ALT were both elevated, along with sed rate and CRP. CT abdomen and pelvis demonstrated diverticulosis coli, without evidence of acute diverticulitis. Patient noted to have swelling of RLE with erythema. Also noted to have erythema with open wounds/ruptured blister on posterior upper thigh. Discussed with ER physician, Dr. Rocha, concern of infection in scrotal area, along with RLE. Agree with need for admission for further evaluation and work-up. Hospital Course Hospital Course Hospital Course: The patient was admitted to the medical unit with with routine lab evaluation for his presenting acute kidney injury. 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 His CT identified a left inguinal hernia with no incarceration. It also identified peripheral vascular disease. He received fluid resuscitation and his diarrhea resolved. Nurses identified decreased heart rate and his beta-juwan and amiodarone therapy doses were adjusted. His hemoglobin A1c came back at 6.9% and his medications were adjusted to assist with improved renal function. His baseline creatinine appears to be 1.0 and his creatinine trended downward with a discharge creatinine 1.4. We are recommending that he discontinue his glipizide therapy for his advanced age and decrease his metformin to 500 twice daily with ongoing SGLT2 inhibitor therapy. He understands to routinely monitor his blood pressures, heart rates and blood sugars. He identified improvement and inquired about discharge. His care will be transition back to his [facility] facility for ongoing blood pressure, glucose and heart rate monitoring. It is recommended that he be evaluated by his PCP in 1 week and consultants as scheduled. I spent 35 minutes in [id number] time with the patient and nursing staff concerning the discharge process. We discussed the admitting diagnoses and hospital course. We discussed identified improvement and the patient's desire to be discharged. We reviewed inpatient studies and imaging. The patient voiced understanding on the importance of follow-up with his primary care provider and specialist(s). The patient plans to be compliant with the medication regimen prescribed and follow-up appointments. He understands that he can return to the emergency department with any sudden changes or concerns. Exam Data for Last 24 hours Vital signs and Labs for Last 24 Hours: Temp Pulse Resp BP Pulse Ox 97.8 F 50 L 17 126/59 L 94 L 09/26/22 07:29 09/26/22 08:00 09/26/22 07:29 09/26/22 07:29 09/26/22 07:29 Laboratory Results - last 24 hr 09/25/22 11:43: POC Glucose 184 H 09/25/22 16:38: POC Glucose 241 H 09/25/22 20:40: POC Glucose 198 H 09/26/22 05:54: POC Glucose 113 H I & O for Last 24 hours: Intake & Output 09/23/22 09/24/22 09/25/22 09/26/22 23:59 23:59 23:59 23:59 Intake Total 820 / 820 1320 / 1320 Output Total 2350 / 2750 1550 / 1550 Balance -1530 / -1930 -230 / -230 Weight 66.678 kg 72.15 kg 72.62 kg Constitutional Constitutional: no acute distress, chronically ill appearing and cooperative *Routine HEENT Exam Head: Present normocephalic Eye: Present EOMI and PERRL ENT: Present mucous membranes moist *Routine Neck Exam Neck: Present supple; Absent lymphadenopathy *Routine Respiratory Exam Respiratory: Present rhonchi and normal respiratory effort *Routine Cardiovascular Exam Cardiovascular: Present RRR *Routine Abdominal Exam Abdominal: Present soft and normoactive bowel sounds; Absent tenderness *Routine Extremities Exam Extremities: Present full R
[2022-09-26 11:29] VITALS: BP 126/72; PULSE 48; RESP 18; TEMP 36.9; O2SAT 97
[2022-09-26 11:29] LABS: POC Glucose,Bedside 198 (70-110)
--- NOTE | 2022-09-26 11:35 | PC.NURSE ---
Daughter notified that pt will DC back to [place].
--- NOTE | 2022-09-27 12:51 | CARE MANAGER ---
Spoke with patient nurse for post-discharge phone interview, no issues noted.
== END 2022-09-26 12:27 ==
LOC: ER 22:58 → 2ND 23:39
PROVIDERS: Nurse Practitioner; Admitting Provider Internal Medicine Adolescent Medicine; Emergency Provider Emergency Medicine; PCP Emergency Medicine; Visit Provider Internal Medicine Adolescent Medicine
DX: E11.65 Type 2 diabetes mellitus with hyperglycemia (principal); N18.31 Chronic kidney disease, stage 3a; N17.9 Acute kidney failure, unspecified; I13.0 Hypertensive heart and chronic kidney disease with heart failure and stage 1 through stage 4 chronic kidney disease, or unspecified chronic kidney disease; I25.10 Atherosclerotic heart disease of native coronary artery without angina pectoris; I50.22 Chronic systolic (congestive) heart failure; I48.92 Unspecified atrial flutter; E78.2 Mixed hyperlipidemia; E11.22 Type 2 diabetes mellitus with diabetic chronic kidney disease; L03.115 Cellulitis of right lower limb; I42.9 Cardiomyopathy, unspecified; Z79.01 Long term (current) use of anticoagulants; Z79.84 Long term (current) use of oral hypoglycemic drugs; Z87.891 Personal history of nicotine dependence; L53.8 Other specified erythematous conditions; L89.621 Pressure ulcer of left heel, stage 1; Z79.899 Other long term (current) drug therapy; L89.611 Pressure ulcer of right heel, stage 1; R19.7 Diarrhea, unspecified; Z20.822 Contact with and (suspected) exposure to COVID-19
CPT/HCPCS: G0378; 36415; 71045; 73630; 74177; 80053; 80061; 82962; 83036; 83690; 83735; 84100; 84145; 84484; 85025; 85651; 86140; 93005; 97110; 97163; 99285; C9803; J0696; Q9967; U0003; U0005

== ENCOUNTER 2022-10-08 08:12 | Emergency (ER) | payer MEDICARE, OTHER, MEDICAID, SELFPAY ==
[2022-10-08] VITALS (15 sets, daily range): BP systolic 84–139; BP diastolic 48–77; PULSE 42–70; RESP 17–18; TEMP 36.4–36.5; O2SAT 95–99; BMI 22.2
--- NOTE | 2022-10-08 08:12 | ECG_ITS ---
APPROVED REPORT Exam: Resting ECG HR:51 bpm ECG Measurements Heart Rate 51 AXES MT 289 P 83 QRSd 170 QRS 8 QT 547 T 113 QTc 525 Conclusion SINUS BRADYCARDIA WITH FIRST DEGREE AV BLOCK LEFT BUNDLE BRANCH BLOCK [120+ ms QRS DURATION, 80+ ms Q/S IN V1/V2, 85+ ms R IN I/aVL/V5/V6] ABNORMAL ECG UNCONFIRMED REPORT Electronically signed by : Neftaly Jain MD 10/08/2022 20:19:31
--- NOTE | 2022-10-08 08:15 | PC.NURSE ---
dr jeffery at bedside
--- NOTE | 2022-10-08 08:20 | XR_ITS ---
FINAL REPORT CLINICAL HISTORY: soa COMPARISON: September 24, 2022 FINDINGS: The heart size is normal. The mediastinum is within normal limits. There is no acute cardiopulmonary process. There is no pleural effusion. There is no pneumothorax. The bony thorax is intact. IMPRESSION: No acute cardiopulmonary process. Reviewed, Interpreted and Dictated by Teofilo Patricio III, MD Transcribed by Quan Aguilar Authenticated and [facility]
--- NOTE | 2022-10-08 08:26 | PC.NURSE ---
XR AT BEDSIDE
[2022-10-08 08:27] LABS: Basophils # 0.1 K/mm3 (0-0.2); Basophils % 0.7 % (0.1-2.0); Eosinophils # 0.3 K/mm3 (0.0-0.4); Eosinophils % 2.8 % (0.1-12.0); Hematocrit 39.7 % (42.0-52.0); Hemoglobin 12.6 g/dL (14.1-18.0); Lymphocytes # 2.7 K/mm3 (0.7-4.5); Lymphocytes % 28.6 % (10-50); Mean Corpuscular HGB Conc 31.8 g/dL (31.8-35.4); Mean Corpuscular Hemoglobin 28.9 pg (27.0-31.2); Mean Corpuscular Volume 90.9 fl (80-94); Mean Platelet Volume 8.8 fl (7.4-10.4); Monocytes # 0.7 K/mm3 (0.1-1.0); Monocytes % 7.7 % (1.7-9.3); Neutrophils # 5.7 K/mm3 (1.8-7.8); Neutrophils % 60.2 % (37.0-80.0); Platelet Count 553 K/mm3 (142-424); Red Blood Count 4.37 M/mm3 (4.60-6.20); White Blood Count 9.5 K/mm3 (4.8-10.8)
[2022-10-08 08:43] LABS: Chloride 106 mmol/L (98-107); Sodium 138 mmol/L (136-145)
[2022-10-08 08:44] LABS: Potassium 4.2 mmoL/L (3.5-5.1)
[2022-10-08 08:46] LABS: Alanine Aminotransferase 197 U/L (12-78); Albumin/Globulin Ratio 0.9 (1.1-1.8); Alkaline Phosphatase 98 U/L (38-126); Anion Gap 10.2 mEq/L (5-15); Aspartate Amino Transferase 106 U/L (17-59); Bilirubin,Total 0.6 mg/dl (0.2-1.3); Blood Urea Nitrogen 32 mg/dl (9-20); Carbon Dioxide 26 mmol/L (22.0-30.0); Creatinine Clearance Estimated 42 mL/min (50-200); Estimated Glomerular Filt Rate 49 ml/min (>60); GFR (African American) 59 ML/MIN (>60); Globulin 3.5 g/dL (1.3-3.2); Total Protein,Serum 6.5 g/dl (6.3-8.2)
[2022-10-08 08:47] LABS: Calcium 8.1 mg/dl (8.4-10.2); Glucose 225 mg/dl (74-100)
--- NOTE | 2022-10-08 08:49 | PC.NURSE ---
Rounded on patient, no needs at this time. Call hager at BS. Patient aware that we are waiting on test results
[2022-10-08 08:57] LABS: D-Dimer 0.74 ug/mL (0.0-0.5)
[2022-10-08 08:58] LABS: Troponin I 0.02 ng/ml (0.00-0.034)
--- NOTE | 2022-10-08 09:17 | PC.NURSE ---
rounded on pt gave ice chips, tap hager at bedside
--- NOTE | 2022-10-08 09:35 | PC.NURSE ---
pt voided 450, tap hager at bedside
--- NOTE | 2022-10-08 10:10 | PC.NURSE ---
ROUNDED ON PT, REPOSITIONED PT FOR COMFORT. NO NEEDS AT THIS TIME. CALL LIGHT WITHIN REACH
--- NOTE | 2022-10-08 10:13 | PC.NURSE ---
rounded on pt adjusted him to the right side and placed pillow under him for comfort, and gave him a pillow and blanket to rest arm, tab haegr at bedside
--- NOTE | 2022-10-08 10:51 | CT_ITS ---
FINAL REPORT TECHNIQUE: Postcontrast axial images of the chest were performed in a CTA protocol. This study was performed with techniques to keep radiation doses as low as reasonably achievable, (ALARA). Individualized dose reduction technique using automated exposure control or adjustment of mA and/or kV according to the patient's size were employed. CLINICAL HISTORY: PTE, SOA FINDINGS: The heart is normal in size. There are borderline sized mediastinal lymph nodes. No adenopathy is identified. No pleural or pericardial effusion is identified. The thoracic aorta is normal in caliber with no focal aneurysm or dissection identified. Segmental branches of the lower lobes are obscured by motion. Otherwise, there is no filling defect to suggest pulmonary embolism. There is mild bibasilar atelectasis. Lungs are otherwise clear. The images of the upper abdomen demonstrates stones or sludge in the gallbladder. IMPRESSION: No evidence for PE on this exam. Stones or sludge in the gallbladder. Recommend right upper quadrant ultrasound for further evaluation. Reviewed, Interpreted and Dictated by Teofilo Patricio III, MD Transcribed by Ava Meredith Authenticated and [facility]
--- NOTE | 2022-10-08 10:57 | PC.NURSE ---
PT MEDICATED PER EMAR, NO NEEDS AT THIS TIME
--- NOTE | 2022-10-08 11:07 | PC.NURSE ---
PT TO CT
--- NOTE | 2022-10-08 11:15 | PC.NURSE ---
pt arrived back to room from rad
--- NOTE | 2022-10-08 11:16 | PC.NURSE ---
PT RETURNED FROM CT
--- NOTE | 2022-10-08 11:45 | PC.NURSE ---
REPEAT TROP SENT TO LAB, PT REPOSITIONED FOR COMFORT. NO FURTHER NEEDS AT THIS TIME. CALL LIGHT WITHIN REACH
[2022-10-08 12:16] LABS: Troponin I < 0.01 ng/ml (0.00-0.034)
--- NOTE | 2022-10-08 12:27 | PC.NURSE ---
PT REQUESTING LUNCH TRAY, OK'D PER ED MD. DIETARY NOTIFIED
--- NOTE | 2022-10-08 12:28 | PC.NURSE ---
er at bedside
--- NOTE | 2022-10-08 12:32 | US_ITS ---
FINAL REPORT CLINICAL HISTORY: Gallstones FINDINGS: Ultrasound images of the right upper quadrant were obtained. The pancreas is obscured. The liver parenchyma is normal in echogenicity. The gallbladder is well visualized and the wall appears normal. There is a gallstone in the gallbladder. The common duct is normal. Limited images of the right kidney are unremarkable. IMPRESSION: Cholelithiasis. Reviewed, Interpreted and Dictated by Teofilo Patricio III, MD Transcribed by Quan Aguilar Authenticated and [facility]
--- NOTE | 2022-10-08 12:33 | PC.NURSE ---
LUNCH TRAY SET-UP FOR PT
--- NOTE | 2022-10-08 12:44 | PC.NURSE ---
US AT BEDSIDE
--- NOTE | 2022-10-08 12:53 | HMH.EDGENADL ---
Discharge Plan Disposition Patient Disposition: Home, Self-Care Chief Complaint: Chest Pain Prescriptions Prescriptions: No Action sennosides [senna] 8.6 mg tablet 8.6 mg PO DAILYP PRN (Reason: Constipation) Jardiance 10 mg tablet 10 mg PO DAILY Hold Instructions: will restart following cardiology appt lactulose 10 gram/15 mL solution 30 ml PO DAILY PRN (Reason: Constipation) acetaminophen 500 mg capsule 500 mg PO Q4HP PRN (Reason: Pain, Mild) ondansetron HCl 4 mg tablet 4 mg PO Q6HP PRN (Reason: nausea) aspirin [Adult Low Dose Aspirin] 81 mg tablet,delayed release (DR/EC) 81 mg PO DAILY loperamide 2 mg capsule 2 mg PO Q4HP PRN (Reason: Diarrhea) ascorbate calcium (vitamin C) 500 mg tablet 500 mg PO BID atorvastatin 10 MG tablet 10 mg PO DAILY Label Comments: TAKE 1 TABLET BY MOUTH EVERY DAY omeprazole 20 MG capsule,delayed release(DR/EC) 20 mg PO DAILY Label Comments: TAKE 1 CAPSULE BY MOUTH EVERY DAY loratadine 10 MG tablet 10 mg PO DAILY Label Comments: TAKE 1 TABLET BY MOUTH EVERY DAY furosemide 20 MG tablet 20 mg PO DAILY lisinopril 20 mg tablet 20 mg PO DAILY Xarelto 15 mg tablet 15 mg PO QPMWITHMEAL metformin 500 mg tablet 500 mg PO BIDWMEAL amiodarone 200 mg tablet 200 mg PO DAILY bisoprolol fumarate 5 mg tablet 2.5 mg PO DAILY Referrals Follow up/Referrals: Provider,Referral, MD [Primary Care Provider] - See instructions Activity Restrictions/Add. Instructions Additional Instructions/Restrictions: Return for worsening pain cough or any other concerns within the next 8 hours otherwise follow-up with your primary care physician within the next few days Clinical Impressions Clinical Impression: Chest pain Discharge ED Provider: Dat Emanuel General Adult HPI General Chief complaint: Chest Pain Stated complaint: Chest Pain Time Seen by Provider: 10/08/22 08:15 Mode of Arrival: EMS Limitations: No Limitations Description of Symptoms (Recalled from ER Triage Doc. by RN): PT BROUGHT IN VIA EMS FOR CHEST PAIN THAT BEGAN ABOUT 0740 THIS AM. PT REPORTED TO [facility] STAFF 10/10 LEFT SIDED CHEST PAIN. PT REPORTS PAIN WORSE WITH DEEP BREATH. PT RECEIVED 324 ASA AND NITRO X 1 DOSE PER EMS History of Present Illness HPI narrative: 81-year-old male history of CKD diabetes heart failure hypertension atrial flutter presents with chest pain. He says the pain began 20 minutes prior to arrival from his left-sided worse with taking a deep breath. He has a mild cough as well. No fever. He is on Xarelto no recent blood clots in the lungs or chest. Related Data Home Medications Medication Instructions Recorded Confirmed atorvastatin 10 mg tablet 10 mg PO DAILY Cholesterol 04/03/19 10/08/22 loratadine 10 mg tablet 10 mg PO DAILY Allergy symptoms 04/03/19 10/08/22 omeprazole 20 mg capsule,delayed 20 mg PO DAILY Acid reflux 04/03/19 10/08/22 release aspirin 81 mg tablet,delayed 81 mg PO DAILY Heart disease 05/01/21 10/08/22 release (Adult Low Dose Aspirin) acetaminophen 500 mg capsule 500 mg PO Q4HP PRN Pain, Mild 09/20/21 10/08/22 empagliflozin 10 mg tablet 10 mg PO DAILY Diabetes 09/20/21 10/08/22 (Jardiance) lactulose 10 gram/15 mL oral 30 ml PO DAILY PRN Constipation 09/20/21 10/08/22 solution sennosides 8.6 mg tablet (senna) 8.6 mg PO DAILYP PRN Constipation 09/20/21 10/08/22 furosemide 20 mg tablet 20 mg PO DAILY Fluid 09/22/21 10/08/22 loperamide 2 mg capsule 2 mg PO Q4HP PRN Diarrhea 10/03/21 10/08/22 ascorbate calcium (vitamin C) 500 500 mg PO BID Supplement 04/10/22 10/08/22 mg tablet ondansetron HCl 4 mg tablet 4 mg PO Q6HP PRN nausea 09/11/22 10/08/22 lisinopril 20 mg tablet 20 mg PO DAILY High blood pressure 09/25/22 10/08/22 rivaroxaban 15 mg tablet (Xarelto) 15 mg PO QPMWITHMEAL Blood 09/25/22 10/08/22 thinner-AFIB amiodarone 200 mg tablet 200 mg PO DAILY
--- NOTE | 2022-10-08 13:12 | PC.NURSE ---
helped pt cute food up on tray, no other complaints at thist time, tab hager at bedside
--- NOTE | 2022-10-08 14:24 | PC.NURSE ---
rounded on pt no complaints at this time emptied urinal @ 300, tap hager at bedside
--- NOTE | 2022-10-08 14:37 | PC.NURSE ---
calling rad to get update or preliminary on pt ultra sound
--- NOTE | 2022-10-08 14:37 | PC.NURSE ---
rad is printing preliminary and faxing copy down to er
--- NOTE | 2022-10-08 15:00 | PC.NURSE ---
REPORT CALLED TO IVY DELUNA AT [facility]
--- NOTE | 2022-10-08 15:03 | PC.NURSE ---
ems called for transport
--- NOTE | 2022-10-08 15:10 | PC.NURSE ---
pt needs nothing at this time, ambulance is pulling in to transfer pt back to [facility]
== END 2022-10-08 15:15 | disposition home or self-care (01) ==
PROVIDERS: Emergency Provider Emergency Medicine
DX: R07.9 Chest pain, unspecified (principal); I25.10 Atherosclerotic heart disease of native coronary artery without angina pectoris; I48.92 Unspecified atrial flutter; I13.0 Hypertensive heart and chronic kidney disease with heart failure and stage 1 through stage 4 chronic kidney disease, or unspecified chronic kidney disease; I50.9 Heart failure, unspecified; Z87.891 Personal history of nicotine dependence
CPT/HCPCS: 71045; 71275; 76705; 80053; 84484; 85025; 85378; 93005; 96374; 99285; Q9967

== ENCOUNTER 2022-10-20 19:13 | Inpatient (IN) | payer MEDICARE, OTHER, MEDICAID, SELFPAY ==
[2022-10-20] VITALS (7 sets, daily range): BP systolic 104–134; BP diastolic 46–65; PULSE 49–76; RESP 14–18; TEMP 36.6–36.8; O2SAT 95–100; BMI 20.3; BMI 21.7
--- NOTE | 2022-10-20 19:25 | XR_ITS ---
PROCEDURE INFORMATION: Exam: XR Chest Exam date and time: 10/20/2022 7:35 PM Age: 81 years old Clinical indication: Pain; Chest pressure TECHNIQUE: Imaging protocol: Radiologic exam of the chest. Views: 1 view. COMPARISON: CR XR CHEST PORTABLE 10/08/2022 8:23 AM FINDINGS: Lungs: Unremarkable. No consolidation. Pleural spaces: Unremarkable. No pleural effusion. No pneumothorax. Heart/Mediastinum: Stable heart size. Bones/joints: Stable bones. Soft tissues: Prominent skin fold right lower hemithorax. IMPRESSION: No acute findings.
--- NOTE | 2022-10-20 19:25 | CT_ITS ---
PROCEDURE INFORMATION: Exam: CT Abdomen And Pelvis With Contrast Exam date and time: 10/20/2022 7:59 PM Age: 81 years old Clinical indication: Abdominal pain; Additional info: Abd pain TECHNIQUE: Imaging protocol: Computed tomography of the abdomen and pelvis with contrast. Radiation optimization: All CT scans at this facility use at least one of these dose optimization techniques: automated exposure control; mA and/or kV adjustment per patient size (includes targeted exams where dose is matched to clinical indication); or iterative reconstruction. Contrast material: ISOVUE; Contrast volume: 75 ml; Contrast route: IV; REPORTING DATA: Count of CT and Cardiac NM exams in prior 12 months: This patient has received 2 known CTs and 0 known cardiac nuclear medicine studies in the 12 months prior to the current study. COMPARISON: CT ABDOMEN PELVIS W CON 09/24/2022 9:09 PM FINDINGS: Lungs: Minimal bibasilar atelectasis. Calcified granulomas Coronary arteries: Unchanged moderate coronary artery atherosclerosis. Liver: Normal. No mass. Gallbladder and bile ducts: Unchanged small gallstone or possible polyp. Pancreas: Normal. No ductal dilation. Spleen: Splenic granulomata. Adrenal glands: Normal. No mass. Kidneys and ureters: Unchanged left renal cysts. Stomach and bowel: Thickened are decompressed stomach. Stool throughout the colon suggests constipation. No bowel obstruction. Appendix: The appendix is normal and located in the right upper quadrant on coronal image 17 with mobile cecum again present. Intraperitoneal space: Unremarkable. No free air. No significant fluid collection. Vasculature: Stable atherosclerosis. Stable severe atherosclerotic changes at the origin celiac artery with mild poststenotic dilatation. Lymph nodes: Unremarkable. No enlarged lymph nodes. Urinary bladder: Unremarkable as visualized. Reproductive: Unremarkable as visualized. Bones/joints: Marked arthrosis bilaterally in the hips. Soft tissues: Unchanged small left-sided fat containing inguinal hernia with subtle stranding in the hernia sac. There is ulceration of the soft tissues overlying the sacrum abutting the bony surface which appears progressive. IMPRESSION: 1. Progressive sacral decubitus ulceration. 2. Persistent small left fat containing inguinal hernia with mild stranding in the hernia sac. Correlation for incarceration/strangulation clinically. 3. Possible gastritis.
--- NOTE | 2022-10-20 19:25 | ECG_ITS ---
APPROVED REPORT Exam: Resting ECG HR:52 bpm ECG Measurements Heart Rate 52 AXES MI 319 P 85 QRSd 187 QRS -28 QT 548 T 91 QTc 527 Conclusion SINUS BRADYCARDIA WITH FIRST DEGREE AV BLOCK LEFT BUNDLE BRANCH BLOCK [120+ ms QRS DURATION, 80+ ms Q/S IN V1/V2, 85+ ms R IN I/aVL/V5/V6] ABNORMAL ECG UNCONFIRMED REPORT Electronically signed by : Neftaly Jani MD 10/21/2022 11:32:02
[2022-10-20 19:34] LABS: Chloride 97 mmol/L (98-107)
[2022-10-20 19:35] LABS: Potassium 4.5 mmoL/L (3.5-5.1); Sodium 130 mmol/L (136-145)
[2022-10-20 19:37] LABS: Alanine Aminotransferase 76 U/L (12-78); Alkaline Phosphatase 106 U/L (38-126); Amylase 44 U/L (30-110); Anion Gap 19.5 mEq/L (5-15); Aspartate Amino Transferase 49 U/L (17-59); Bilirubin,Total 0.6 mg/dl (0.2-1.3); Blood Urea Nitrogen 41 mg/dl (9-20); Carbon Dioxide 18 mmol/L (22.0-30.0); Creatinine Clearance Estimated 30 mL/min (50-200); Estimated Glomerular Filt Rate 39 ml/min (>60); GFR (African American) 47 ML/MIN (>60)
[2022-10-20 19:38] LABS: Albumin Level 3.1 g/dl (3.5-5.0); Albumin/Globulin Ratio 0.9 (1.1-1.8); Calcium 8.3 mg/dl (8.4-10.2); Globulin 3.3 g/dL (1.3-3.2); Lipase 111 U/L (23-300); Total Protein,Serum 6.4 g/dl (6.3-8.2)
[2022-10-20 19:39] LABS: Basophils % 0.1 % (0.1-2.0); Eosinophils % 0.1 % (0.1-12.0); Hematocrit 38.9 % (42.0-52.0); Lymphocytes # 1.2 K/mm3 (0.7-4.5); Lymphocytes % 8.6 % (10-50); Mean Corpuscular HGB Conc 30.7 g/dL (31.8-35.4); Mean Corpuscular Hemoglobin 28.3 pg (27.0-31.2); Mean Platelet Volume 9.4 fl (7.4-10.4); Monocytes # 0.8 K/mm3 (0.1-1.0); Monocytes % 5.7 % (1.7-9.3); Neutrophils # 11.6 K/mm3 (1.8-7.8); Neutrophils % 85.6 % (37.0-80.0); Platelet Count 501 K/mm3 (142-424); Red Blood Count 4.23 M/mm3 (4.60-6.20); Red Cell Distribution Width 14.5 % (11.5-17.5); White Blood Count 13.6 K/mm3 (4.8-10.8)
--- NOTE | 2022-10-20 19:39 | PC.NURSE ---
RAD at for CXR
[2022-10-20 19:40] LABS: MANUAL DIFFERENTIAL MANUAL DIFFERENTIAL (MANUAL DIFF)
[2022-10-20 19:48] LABS: Glucose 689 mg/dl (74-100)
--- NOTE | 2022-10-20 19:52 | PC.NURSE ---
Pt gone to RAD via stretcher
[2022-10-20 19:53] LABS: Hemoglobin A1C 9.4 % (4.0-6.0)
[2022-10-20 19:56] LABS: Anisocytosis 1+; Hypochromasia 1+; Lymphocytes % 9 % (10-50); Monocytes % 4 % (2-9); Neutrophils % 87 % (42-76); Platelet Estimate Normal; Total Cells Counted 100
--- NOTE | 2022-10-20 20:04 | PC.NURSE ---
Pt returned from RAD
--- NOTE | 2022-10-20 20:31 | HMH.EDABDPAI ---
Discharge Plan Disposition Patient Disposition: Admitted Condition: Fair Clinical Impressions Clinical Impression: Severe sepsis with acute organ dysfunction, Type 2 diabetes mellitus, Sacral decubitus ulcer, stage IV, ANJALI (acute kidney injury) Discharge ED Provider: Ata (ED)Garrett Abdominal Pain HPI General Chief Complaint: Abdominal Pain Stated Complaint: hyperglycemia,abd pain Time Seen by Provider: 10/20/22 20:20 Mode of Arrival: EMS Source of Information: Patient, EMS and Medical Record Limitations: No Limitations Description of Symptoms (Recalled from ER Triage Doc. by RN): pt c/o lower abd pain radiating to his groin. pt denies n/v/d or urinary symptoms. pts last normal bm was this am. EMS reports his finger stick was reading high as well as at [place]. History of Present Illness HPI narrative: pt sent from f with reported lower abd pain - has hx of sacral decubitus and diabetes - no vomiting - MD complaint: abdominal pain Onset (ago): hour(s) Consistency: intermittent Location: suprapubic Severity: moderate Associated symptoms: denies other symptoms Related Data Home Medications Medication Instructions Recorded Confirmed atorvastatin 10 mg tablet 10 mg PO DAILY Cholesterol 04/03/19 10/20/22 loratadine 10 mg tablet 10 mg PO DAILY Allergy symptoms 04/03/19 10/20/22 omeprazole 20 mg capsule,delayed 20 mg PO DAILY Acid reflux 04/03/19 10/20/22 release aspirin 81 mg tablet,delayed 81 mg PO DAILY Heart disease 05/01/21 10/20/22 release (Adult Low Dose Aspirin) acetaminophen 500 mg capsule 500 mg PO Q4HP PRN Pain, Mild 09/20/21 10/20/22 empagliflozin 10 mg tablet 10 mg PO DAILY Diabetes 09/20/21 10/20/22 (Jardiance) lactulose 10 gram/15 mL oral 30 ml PO DAILY PRN Constipation 09/20/21 10/20/22 solution sennosides 8.6 mg tablet (senna) 8.6 mg PO DAILYP PRN Constipation 09/20/21 10/20/22 furosemide 20 mg tablet 20 mg PO DAILY Fluid 09/22/21 10/20/22 loperamide 2 mg capsule 2 mg PO Q4HP PRN Diarrhea 10/03/21 10/20/22 ascorbate calcium (vitamin C) 500 500 mg PO BID Supplement 04/10/22 10/20/22 mg tablet ondansetron HCl 4 mg tablet 4 mg PO Q6HP PRN nausea 09/11/22 10/20/22 lisinopril 20 mg tablet 20 mg PO DAILY High blood pressure 09/25/22 10/20/22 rivaroxaban 15 mg tablet (Xarelto) 15 mg PO QPMWITHMEAL Blood 09/25/22 10/20/22 thinner-AFIB amiodarone 200 mg tablet 200 mg PO DAILY Heart disease 10/08/22 10/20/22 metformin 500 mg tablet 500 mg PO BIDWMEAL Diabetes 10/08/22 10/20/22 bisoprolol fumarate 5 mg tablet 5 mg PO DAILY HEART 10/11/22 10/20/22 glipizide 10 mg tablet 10 mg PO DAILY Diabetes 10/11/22 10/20/22 Allergies Allergy/AdvReac Type Severity Reaction Status Date / Time No Known Allergies Allergy Verified 10/11/22 09:20 [facility] Disclaimer: The information contained in this section may have been updated after the patient was seen, as this information can be updated by other users. Medical History Abnormal electrocardiography ANJALI (acute kidney injury) Arthritis Atrial flutter CAD (coronary artery disease) CAD in [place] artery Cardiomyopathy CKD (chronic kidney disease) stage 3, GFR 30-59 ml/min Diabetes mellitus Dyspnea Edema HTN (hypertension) Hyperlipidemia Left bundle branch block (LBBB) Overweight (BMI 25.0-29.9) Peripheral neuropathy Wound of foot Surgical History History of cardiac cath History of right knee surgery Family History Other No significant family history Social History Smoking Status: Never smoker alcohol intake: never substance use type: denies use current occupational status: retired Travel in the last 8 weeks: None housing: [facility] caffeine: No ROS Obtained: Yes All systems reviewed & no additional complaints ex
[2022-10-20 20:32] LABS: Microscopic, Urine URINE MICROSCOPIC (MICROSCOPIC)
[2022-10-20 20:32] LABS: Acetone, Serum (Rapid) None Detected (None Detect)
[2022-10-20 20:39] LABS: Appearance,Urine CLEAR (Clear); Bilirubin,Urine Negative (Negative); Blood, Urine Negative (Negative); Color,Urine YELLOW (Yellow); Glucose,Urine (UA) 3+ (Negative); Ketones,Urine TRACE (Negative); Leukocyte Esterase,Urine 1+ (Negative); Nitrate,Urine Negative (Negative); Protein,Urine Negative (Negative); Specific Gravity, Urine <= 1.005 (1.005-1.030); Urobilinogen,Urine 0.2 EU/dl (0.2)
[2022-10-20 20:49] LABS: Bacteria,Urine Trace /lpf; RBC,Urine Occasional #/hpf (0-3); WBC,Urine Occasional #/hpf (0-3)
[2022-10-20 20:50] LABS: Yeast,Urine 2+ /lpf
[2022-10-20 21:12] LABS: Coronavirus 19, PCR Not Detected (NotDetected); Influenza A, PCR Not Detected (NotDetected); Influenza B, PCR Not Detected (NotDetected)
--- NOTE | 2022-10-20 21:32 | PC.NURSE ---
Daughter left hospital. Gave phone number os [phone] to call with any updates or issues.
--- NOTE | 2022-10-20 21:41 | PC.NURSE ---
First set of cultures collected and sent to lab
--- NOTE | 2022-10-20 21:43 | PC.NURSE ---
Hospitalist, Greg, at [facility]
[2022-10-20 21:44] LABS: POC Glucose,Bedside 313 (70-110)
[2022-10-20 22:03] LABS: Lactic Acid 3.3 mmol/L (0.7-2.1)
--- NOTE | 2022-10-20 22:12 | EXP.HP ---
History of Present Illness *Admission Date: 10/20/22 *Reason for visit:: uncontrolled blood sugar and worsening ducuti ulcecers to buttuck thigh a *History of present illness: 81-year-old [facility] patient with multiple chronic issues. Has had worsening skin ulcers and uncontrolled diabetes. Presented to the ER because of lower abdominal pain and discomfort. Concern for UTI and increased progression of his decubitus ulcers. Admitted for IV antibiotics and further management. [facility] Disclaimer: The information contained in this section may have been updated after the patient was seen, as this information can be updated by other users. Medical History Abnormal electrocardiography ANJALI (acute kidney injury) Arthritis Atrial flutter CAD (coronary artery disease) CAD in [place] artery Cardiomyopathy CKD (chronic kidney disease) stage 3, GFR 30-59 ml/min Diabetes mellitus Dyspnea Edema HTN (hypertension) Hyperlipidemia Left bundle branch block (LBBB) Overweight (BMI 25.0-29.9) Peripheral neuropathy Wound of foot Surgical History History of cardiac cath History of right knee surgery Family History Other No significant family history Social History (Updated 10/20/22 @ 23:55 by Cari Blanco RN) Smoking Status: Former smoker alcohol intake: never substance use type: denies use current occupational status: retired Travel in the last 8 weeks: None housing: [facility] caffeine: No Review of Systems Constitutional Constitutional: Reports system reviewed and no additional complaints, except as documented and Reports weakness Comments: none ambulatory Eyes Eyes: Reports system reviewed and no additional complaints, except as documented ENT Ears, Nose, Mouth, and Throat: Reports system reviewed and no additional complaints, except as documented *Cardiovascular Cardiovascular: Reports system reviewed and no additional complaints, except as documented and Reports slow heart rate Comments: on several cardiovascular medication *Respiratory Respiratory: Reports system reviewed and no additional complaints, except as documented Comments: non complaints speaks well *Gastrointestinal Gastrointestinal: Reports system reviewed and no additional complaints, except as documented and Reports constipation *Genitourinary Genitourinary: Reports system reviewed and no additional complaints, except as documented and Reports urinary incontinence *Musculoskeletal Musculoskeletal: Reports abnormal gait Integumentary/Breasts Skin/Breast: Reports system reviewed and no additional complaints, except as documented, Reports bleeding lesions, Reports changing lesions, Reports lesions and Reports skin ulcer *Neurologic Neurologic: Reports abnormal gait and Reports weakness Psychiatric Psychiatric: Reports system reviewed and no additional complaints, except as documented Endocrine Endocrine: Reports system reviewed and no additional complaints, except as documented Hematologic/Lymphatic Hematologic/Lymphatic: Reports system reviewed and no additional complaints, except as documented Allergic/Immunologic Allergic/Immunologic: Reports system reviewed and no additional complaints, except as documented Meds Home Medications and Allergies Home Medications Medication Instructions Recorded Confirmed Type atorvastatin 10 mg tablet 10 mg PO DAILY Cholesterol 04/03/19 10/20/22 History loratadine 10 mg tablet 10 mg PO DAILY Allergy symptoms 04/03/19 10/20/22 History omeprazole 20 mg capsule,delayed 20 mg PO DAILY Acid reflux 04/03/19 10/20/22 History release aspirin 81 mg tablet,delayed 81 mg PO DAILY Heart disease 05/01/21 10/20/22 History release (Adult Low Dose Aspirin) empagliflozin 10 mg tablet 10 mg PO DAILY CAD 09/20/21 10/20/22 History (Jardiance)
--- NOTE | 2022-10-20 22:16 | PC.NURSE ---
Second set of cultures drawn and sent to lab
--- NOTE | 2022-10-20 22:24 | PC.NURSE ---
pt arrived to floor at this time
--- NOTE | 2022-10-20 23:07 | PC.NURSE ---
notified LILIBETH Garza of pt. FSBS 474, ordered to give 20 units humolog and recheck glucose in 2 hours
[2022-10-20 23:17] LABS: POC Glucose,Bedside 474 (70-110)
--- NOTE | 2022-10-21 00:24 | PC.WOUNDNOTE ---
right thigh left heel
[2022-10-21 01:40] LABS: POC Glucose,Bedside 339 (70-110)
[2022-10-21 01:55] LABS: Reflex Lactic Add Lactic Reflex
[2022-10-21 02:45] LABS: Lactic Acid Follow Up (RFLX 1) 2.7 mmol/L (0.7-2.1)
[2022-10-21 04:00] VITALS: BP 100/37; PULSE 45; RESP 18; TEMP 36.7; O2SAT 94; BMI 22.4
[2022-10-21 04:23] LABS: Reflex Lactic (2 hrs) Add Lactic Reflex
[2022-10-21 04:32] LABS: Lactic Acid Follow up (RFLX 2) 2.6 mmol/L (0.7-2.1)
[2022-10-21 04:38] LABS: Chloride 103 mmol/L (98-107); Potassium 3.5 mmoL/L (3.5-5.1); Sodium 139 mmol/L (136-145)
[2022-10-21 04:41] LABS: Blood Urea Nitrogen 39 mg/dl (9-20); Creatinine Clearance Estimated 37 mL/min (50-200); Estimated Glomerular Filt Rate 45 ml/min (>60); GFR (African American) 54 ML/MIN (>60)
[2022-10-21 04:42] LABS: Anion Gap 15.5 mEq/L (5-15); Calcium 8.5 mg/dl (8.4-10.2); Carbon Dioxide 24 mmol/L (22.0-30.0); Glucose 135 mg/dl (74-100)
[2022-10-21 04:55] LABS: POC Glucose,Bedside 151 (70-110)
--- NOTE | 2022-10-21 04:57 | EXP.EVENT.NO ---
fsbs have decreased to the 150's, will hold sliding scale and change to medium level form high.
[2022-10-21 06:39] LABS: POC Glucose,Bedside 165 (70-110)
[2022-10-21 07:13] VITALS: BP 88/59; PULSE 85; RESP 18; TEMP 36.3; O2SAT 96
[2022-10-21 07:41] LABS: Basophils % 0.3 % (0.1-2.0); Eosinophils # 0.2 K/mm3 (0.0-0.4); Eosinophils % 1.1 % (0.1-12.0); Hematocrit 38.6 % (42.0-52.0); Lymphocytes # 2.9 K/mm3 (0.7-4.5); Lymphocytes % 19.7 % (10-50); Mean Corpuscular HGB Conc 31.1 g/dL (31.8-35.4); Mean Corpuscular Hemoglobin 28.3 pg (27.0-31.2); Mean Platelet Volume 9.1 fl (7.4-10.4); Monocytes # 1.1 K/mm3 (0.1-1.0); Monocytes % 7.4 % (1.7-9.3); Neutrophils # 10.4 K/mm3 (1.8-7.8); Neutrophils % 71.5 % (37.0-80.0); Platelet Count 504 K/mm3 (142-424); Red Blood Count 4.24 M/mm3 (4.60-6.20); Red Cell Distribution Width 14.4 % (11.5-17.5); White Blood Count 14.5 K/mm3 (4.8-10.8)
[2022-10-21 07:55] LABS: Chloride 104 mmol/L (98-107)
[2022-10-21 07:56] LABS: Potassium 3.4 mmoL/L (3.5-5.1); Sodium 139 mmol/L (136-145)
[2022-10-21 07:59] LABS: Alanine Aminotransferase 76 U/L (12-78); Albumin Level 2.9 g/dl (3.5-5.0); Albumin/Globulin Ratio 0.9 (1.1-1.8); Alkaline Phosphatase 94 U/L (38-126); Anion Gap 14.4 mEq/L (5-15); Aspartate Amino Transferase 61 U/L (17-59); Bilirubin,Total 0.5 mg/dl (0.2-1.3); Blood Urea Nitrogen 38 mg/dl (9-20); Calcium 8.4 mg/dl (8.4-10.2); Carbon Dioxide 24 mmol/L (22.0-30.0); Creatinine Clearance Estimated 35 mL/min (50-200); Estimated Glomerular Filt Rate 42 ml/min (>60); GFR (African American) 51 ML/MIN (>60); Globulin 3.3 g/dL (1.3-3.2); Glucose 85 mg/dl (74-100); Total Protein,Serum 6.2 g/dl (6.3-8.2)
--- NOTE | 2022-10-21 09:00 | PC.NURSE ---
COURTESY ROUND PATIENT AWAKE LAYING IN BED . PATIENT REQUESTED GOWN TO BE CHANGED . TRASH AND LINENS EMPTIED . ICE WATER EMPTIED . PATIENT VOICED NO OTHER NEEDS AT THIS TIME . CALL LIGHT WITHIN REACH
--- NOTE | 2022-10-21 09:02 | EXP.PHA.CONS ---
Pharmacy Consult Date: 10/21/22 Time: 09:02 Referring provider: DR WAN Reason for Consult:: VANCOMYCIN DOSING CONSULT Allergies Allergy/AdvReac Type Severity Reaction Status Date / Time No Known Allergies Allergy Verified 10/11/22 09:20 Home Medications Medication Instructions Recorded Confirmed Type atorvastatin 10 mg tablet 10 mg PO DAILY Cholesterol 04/03/19 10/20/22 History loratadine 10 mg tablet 10 mg PO DAILY Allergy symptoms 04/03/19 10/20/22 History omeprazole 20 mg capsule,delayed 20 mg PO DAILY Acid reflux 04/03/19 10/20/22 History release aspirin 81 mg tablet,delayed 81 mg PO DAILY Heart disease 05/01/21 10/20/22 History release (Adult Low Dose Aspirin) acetaminophen 500 mg capsule 500 mg PO Q4HP PRN Pain, Mild 09/20/21 10/20/22 History empagliflozin 10 mg tablet 10 mg PO DAILY Diabetes 09/20/21 10/20/22 History (Jardiance) lactulose 10 gram/15 mL oral 30 ml PO DAILY PRN Constipation 09/20/21 10/20/22 History solution sennosides 8.6 mg tablet (senna) 8.6 mg PO DAILYP PRN Constipation 09/20/21 10/20/22 History furosemide 20 mg tablet 20 mg PO DAILY Fluid 09/22/21 10/20/22 History loperamide 2 mg capsule 2 mg PO Q4HP PRN Diarrhea 10/03/21 10/20/22 History ascorbate calcium (vitamin C) 500 500 mg PO BID Supplement 04/10/22 10/20/22 History mg tablet ondansetron HCl 4 mg tablet 4 mg PO Q6HP PRN nausea 09/11/22 10/20/22 History lisinopril 20 mg tablet 20 mg PO DAILY High blood pressure 09/25/22 10/20/22 History rivaroxaban 15 mg tablet (Xarelto) 15 mg PO QPMWITHMEAL Blood 09/25/22 10/20/22 History thinner-AFIB amiodarone 200 mg tablet 200 mg PO DAILY Heart disease 10/08/22 10/20/22 History metformin 500 mg tablet 500 mg PO BIDWMEAL Diabetes 10/08/22 10/20/22 History bisoprolol fumarate 5 mg tablet 5 mg PO DAILY HEART 10/11/22 10/20/22 History glipizide 10 mg tablet 10 mg PO DAILY Diabetes 10/11/22 10/20/22 History New Prescriptions to Start Prescriptions: Height: 1.73 m Weight: 67.132 kg Laboratory Results:: Laboratory Results - last 24 hr 10/20/22 19:18: WBC 13.6 H, RBC 4.23 L, Hgb 12.0 L, Hct 38.9 L, MCV 92.0, MCH 28.3, MCHC 30.7 L, RDW 14.5, Plt Count 501 H, MPV 9.4, Neut % (Auto) 85.6 H, Lymph % (Auto) 8.6 L, Bledsoe % (Auto) 5.7, Eos % (Auto) 0.1, Baso % (Auto) 0.1, Neut # (Auto) 11.6 H, Lymph # (Auto) 1.2, Bledsoe # (Auto) 0.8, Eos # (Auto) 0.0, Baso # (Auto) 0.0, Total Counted 100, Neutrophils % (Manual) 87 H, Lymphocytes % (Manual) 9 L, Monocytes % (Manual) 4, Platelet Estimate Normal, Hypochromasia 1+, Anisocytosis 1+ 10/20/22 19:18: Sodium 130 L, Potassium 4.5, Chloride 97 L, Carbon Dioxide 18 L, Anion Gap 19.5 H, BUN 41 H, Creatinine 1.70 H, Estimated Creat Clear 30, Estimated GFR 39 L, Est GFR ( Amer) 47 L, Glucose 689 H*, Calcium 8.3 L, Total Bilirubin 0.6, AST 49, ALT 76, Alkaline Phosphatase 106, Total Protein 6.4, Albumin 3.1 L, Globulin 3.3 H, Albumin/Globulin Ratio 0.9 L, Amylase 44, Lipase 111 10/20/22 19:18: Hemoglobin A1c 9.4 H D 10/20/22 19:18: Acetone Level None detected 10/20/22 20:21: Urine Color Yellow, Urine Appearance Clear, Urine pH 5.0, Ur Specific [place] <= 1.005, Urine Protein Negative, Urine Glucose (UA) 3+, Urine Ketones Trace, Urine Blood Negative, Urine Nitrate Negative, Urine Bilirubin Negative, Urine Urobilinogen 0.2, Ur Leukocyte Esterase 1+ A, Urine RBC Occasional, Urine WBC Occasional, Ur Squamous Epith Cells 3-5, Urine Bacteria Trace, Urine Yeast 2+ 10/20/22 21:00: SARS-CoV-2 (PCR) Not detected, Influenza A Untype (PCR) Not detected, Influenza Type B (PCR) Not detected 10/20/22 21:38: POC Glucose 313 H* 10/20/22 21:40: Lactate 3.3 H 10/20/22 23:04: POC Glucose 474 H* 10/21/22 01:32: POC Glucose 339 H* 10/21/22 02:20: Lactate 2.7 H 10/21/22 04:00: Sodium 139, Potassium 3.5 D, Chloride 103, Carbon Dioxide 24, Anion Gap 15.5 H, BUN 39 H, Creatinine 1.50 H, Estimated Creat Clear 37, Estimated GFR 45 L, Est GFR ( Amer) 54 L, Glucose 135 H D, Calcium 8.5
--- NOTE | 2022-10-21 09:55 | PC.NURSE ---
wound care performed, areas cleaned with chlorohexidine and covered with dressings.
--- NOTE | 2022-10-21 10:39 | P.CONPHA_ITS ---
Pharmacy Intervention Comments: MEDICATION RECONCILIATION COMPLETE USING MAR FROM [facility].
--- NOTE | 2022-10-21 10:39 | HMH.PHAINT1 ---
Pharmacy Intervention Comments: MEDICATION RECONCILIATION COMPLETE USING MAR FROM [facility].
[2022-10-21 10:57] VITALS: BP 112/44
[2022-10-21 11:18] LABS: POC Glucose,Bedside 167 (70-110)
[2022-10-21 15:06] VITALS: BP 105/37; PULSE 50; RESP 18; TEMP 36.7; O2SAT 98
--- NOTE | 2022-10-21 17:14 | EXP.ACUTE.PN ---
Subjective *Date: 10/21/22 *Time: 17:14 Interval history: Feeling somewhat better today. Denies any chest pain or shortness of breath. States belly is feeling better. Tolerating p.o. intake. Family at bedside. Afebrile. Medical Exam Vital signs and Labs for Last 24 Hours: Vital Signs Temp Pulse Pulse Resp BP BP Pulse Ox 10/21/22 15:06 98.0 F 50 L 18 105/37 L 98 10/21/22 10:57 112/44 L 10/21/22 07:13 97.4 F L 85 18 88/59 L 96 10/21/22 04:00 98.1 F 45 L 18 100/37 L 94 L 10/20/22 22:00 98.3 F 76 18 114/65 96 10/20/22 22:16 98 F 49 L 18 114/65 10/20/22 21:30 49 L 17 107/46 L 99 10/20/22 21:00 57 L 14 122/61 100 10/20/22 20:31 53 L 17 134/58 L 96 10/20/22 19:30 51 L 18 104/54 L 96 10/20/22 19:19 98.2 F 51 L 16 124/61 95 Intake and Output 10/21/22 10/21/22 10/21/22 07:59 15:59 23:59 Intake Total 290 / 530 240 / 530 Output Total 0 / 200 200 / 200 Balance 290 / 330 40 / 330 Intake: Intake, Oral Amount 240 / 480 240 / 480 Intake, Total IV Amount 50 / 50 Ceftriaxone Sodium 1 gm In 0.9 50 / 50 % Sodium Chloride 50 ml @ 100 mls/hr IV ONCE ONE Rx#:[id number] Output: Output, Urine Amount 0 / 200 200 / 200 Other: Number of Unmeasured Voids 1 1 Weight 67.132 kg 67.132 kg Patient Weight 10/21/22 23:59 Weight 67.132 kg Laboratory Results - last 24 hr 10/20/22 19:18: WBC 13.6 H, RBC 4.23 L, Hgb 12.0 L, Hct 38.9 L, MCV 92.0, MCH 28.3, MCHC 30.7 L, RDW 14.5, Plt Count 501 H, MPV 9.4, Neut % (Auto) 85.6 H, Lymph % (Auto) 8.6 L, [place] % (Auto) 5.7, Eos % (Auto) 0.1, Baso % (Auto) 0.1, Neut # (Auto) 11.6 H, Lymph # (Auto) 1.2, [place] # (Auto) 0.8, Eos # (Auto) 0.0, Baso # (Auto) 0.0, Total Counted 100, Neutrophils % (Manual) 87 H, Lymphocytes % (Manual) 9 L, Monocytes % (Manual) 4, Platelet Estimate Normal, Hypochromasia 1+, Anisocytosis 1+ 10/20/22 19:18: Sodium 130 L, Potassium 4.5, Chloride 97 L, Carbon Dioxide 18 L, Anion Gap 19.5 H, BUN 41 H, Creatinine 1.70 H, Estimated Creat Clear 30, Estimated GFR 39 L, Est GFR ( Amer) 47 L, Glucose 689 H*, Calcium 8.3 L, Total Bilirubin 0.6, AST 49, ALT 76, Alkaline Phosphatase 106, Total Protein 6.4, Albumin 3.1 L, Globulin 3.3 H, Albumin/Globulin Ratio 0.9 L, Amylase 44, Lipase 111 10/20/22 19:18: Hemoglobin A1c 9.4 H D 10/20/22 19:18: Acetone Level None detected 10/20/22 20:21: Urine Color Yellow, Urine Appearance Clear, Urine pH 5.0, Ur Specific [place] <= 1.005, Urine Protein Negative, Urine Glucose (UA) 3+, Urine Ketones Trace, Urine Blood Negative, Urine Nitrate Negative, Urine Bilirubin Negative, Urine Urobilinogen 0.2, Ur Leukocyte Esterase 1+ A, Urine RBC Occasional, Urine WBC Occasional, Ur Squamous Epith Cells 3-5, Urine Bacteria Trace, Urine Yeast 2+ 10/20/22 21:00: SARS-CoV-2 (PCR) Not detected, Influenza A Untype (PCR) Not detected, Influenza Type B (PCR) Not detected 10/20/22 21:38: POC Glucose 313 H* 10/20/22 21:40: Lactate 3.3 H 10/20/22 23:04: POC Glucose 474 H* 10/21/22 01:32: POC Glucose 339 H* 10/21/22 02:20: Lactate 2.7 H 10/21/22 04:00: Sodium 139, Potassium 3.5 D, Chloride 103, Carbon Dioxide 24, Anion Gap 15.5 H, BUN 39 H, Creatinine 1.50 H, Estimated Creat Clear 37, Estimated GFR 45 L, Est GFR ( Amer) 54 L, Glucose 135 H D, Calcium 8.5 10/21/22 04:00: Lactate 2.6 H 10/21/22 04:48: POC Glucose 151 H 10/21/22 06:32: POC Glucose 165 H 10/21/22 07:11: WBC 14.5 H, RBC 4.24 L, Hgb 12.0 L, Hct 38.6 L, MCV 91.0, MCH 28.3, MCHC 31.1 L, RDW 14.4, Plt Count 504 H, MPV 9.1, Neut % (Auto) 71.5, Lymph % (Auto) 19.7, [place] % (Auto) 7.4, Eos % (Auto) 1.1, Baso % (Auto) 0.3, Neut # (Auto) 10.4 H, Lymph # (Auto) 2.9, [place] # (Auto) 1.1 H, Eos # (Auto) 0.2, Baso # (Auto) 0.0 10/21/22 07:11: Sodium 139, Potassium 3.4 L, Chloride 104, Carbon Dioxide 24, Anion Gap 14.4, BUN 38 H, Creatinine 1.60 H, Estimated Creat Clear 35, Estimated GFR 42 L, Est GFR ( Amer) 5
--- NOTE | 2022-10-21 17:36 | PC.NURSE ---
no acute changes this shift. dsg changed bid today. purulent drainage noted to ulcers with foul smell. md at bedside for second dsg change.
--- NOTE | 2022-10-21 18:54 | PC.NURSE ---
v/o to insert robbins cath r/t acute urinary retention. 650 ml noted on bladder scanner. robbins cath was very difficult to insert. a large amount of purulent evacuated from urethra while insertion robbins cath. dr an made aware of findings and difficulty noted during insertion.
[2022-10-21 18:59] LABS: POC Glucose,Bedside 118 (70-110)
[2022-10-21 20:00] VITALS: BP 132/58; PULSE 60; RESP 18; TEMP 36.7; O2SAT 97
[2022-10-21 20:14] LABS: POC Glucose,Bedside 150 (70-110)
[2022-10-22] VITALS: BP 114/46; PULSE 53; RESP 18; TEMP 36.9; O2SAT 91
[2022-10-22 04:00] VITALS: BP 123/68; PULSE 55; RESP 18; TEMP 36.8; O2SAT 98; BMI 22.4
[2022-10-22 05:44] LABS: POC Glucose,Bedside 203 (70-110)
[2022-10-22 06:23] LABS: MANUAL DIFFERENTIAL MANUAL DIFFERENTIAL (MANUAL DIFF)
[2022-10-22 06:29] LABS: Basophils # 0.1 K/mm3 (0-0.2); Basophils % 0.6 % (0.1-2.0); Eosinophils # 0.1 K/mm3 (0.0-0.4); Eosinophils % 0.9 % (0.1-12.0); Hematocrit 37.1 % (42.0-52.0); Hemoglobin 11.8 g/dL (14.1-18.0); Lymphocytes # 1.4 K/mm3 (0.7-4.5); Lymphocytes % 14.3 % (10-50); Mean Corpuscular HGB Conc 31.8 g/dL (31.8-35.4); Mean Corpuscular Hemoglobin 28.9 pg (27.0-31.2); Mean Corpuscular Volume 90.7 fl (80-94); Mean Platelet Volume 9.2 fl (7.4-10.4); Monocytes # 0.6 K/mm3 (0.1-1.0); Monocytes % 5.9 % (1.7-9.3); Neutrophils # 7.9 K/mm3 (1.8-7.8); Neutrophils % 78.3 % (37.0-80.0); Platelet Count 424 K/mm3 (142-424); Red Blood Count 4.09 M/mm3 (4.60-6.20); Red Cell Distribution Width 14.6 % (11.5-17.5)
[2022-10-22 06:33] LABS: Chloride 106 mmol/L (98-107); Potassium 3.6 mmoL/L (3.5-5.1); Sodium 137 mmol/L (136-145)
[2022-10-22 06:36] LABS: Anion Gap 13.6 mEq/L (5-15); Blood Urea Nitrogen 34 mg/dl (9-20); Calcium 7.7 mg/dl (8.4-10.2); Carbon Dioxide 21 mmol/L (22.0-30.0); Creatinine Clearance Estimated 43 mL/min (50-200); Estimated Glomerular Filt Rate 53 ml/min (>60); GFR (African American) 64 ML/MIN (>60); Glucose 186 mg/dl (74-100)
[2022-10-22 07:45] LABS: Lymphocytes % 13 % (10-50); Monocytes % 4 % (2-9); Neutrophils % 83 % (42-76); Total Cells Counted 100
[2022-10-22 07:46] LABS: Platelet Estimate Normal; RBC Morphology Normal
--- NOTE | 2022-10-22 08:16 | SW/DCPLANNER ---
Addendum entered by Tiny Grullon 10/24/22 11:19: I have updated Edilia newman/ Loan Rahman that patient will return today. Original Note: Patient currently resides at [facility] level of care. I will continue to update Edilia newman/ Loan during patient's admission. Discharge date is unknown at this time.
[2022-10-22 08:33] VITALS: BMI 22.4
--- NOTE | 2022-10-22 10:33 | EXP.ACUTE.PN ---
Subjective *Date: 10/22/22 *Time: 13:01 Interval history: 81-year-old long-term longterm patient with multiple chronic issues.? Has had worsening skin ulcers and uncontrolled diabetes.? Presented to the ER because of lower abdominal pain and discomfort.? Concern for UTI and increased progression of his decubitus ulcers.? Admitted for IV antibiotics and further management. Denies abdominal pain. Will have surgery consulted to look at decubitus ulcer. Will add Metronidazole 500 mg TID daily for additional anaerobic coverage. Medical Exam Vital signs and Labs for Last 24 Hours: Vital Signs Temp Pulse Resp BP Pulse Ox 10/22/22 04:00 98.2 F 55 L 18 123/68 98 10/22/22 00:00 98.4 F 53 L 18 114/46 L 91 L 10/21/22 20:00 98.1 F 60 18 132/58 L 97 10/21/22 15:06 98.0 F 50 L 18 105/37 L 98 10/21/22 10:57 112/44 L Intake and Output 10/21/22 10/22/22 10/22/22 23:59 07:59 15:59 Intake Total 360 / 1370 720 / 720 Output Total 750 / 950 850 / 850 Balance -390 / 420 -130 / -130 Intake: Intake, Oral Amount 360 / 1320 720 / 720 Output: Output, Urine Amount 750 / 950 850 / 850 Other: Number of Unmeasured Voids 0 0 Weight 67.12 kg 67.12 kg Patient Weight 10/22/22 23:59 Weight 67.12 kg Laboratory Results - last 24 hr 10/21/22 11:11: POC Glucose 167 H 10/21/22 17:08: POC Glucose 118 H 10/21/22 19:48: POC Glucose 150 H 10/22/22 05:14: POC Glucose 203 H 10/22/22 06:04: WBC 10.0 D, RBC 4.09 L, Hgb 11.8 L, Hct 37.1 L, MCV 90.7, MCH 28.9, MCHC 31.8, RDW 14.6, Plt Count 424, MPV 9.2, Neut % (Auto) 78.3, Lymph % (Auto) 14.3, [place] % (Auto) 5.9, Eos % (Auto) 0.9, Baso % (Auto) 0.6, Neut # (Auto) 7.9 H, Lymph # (Auto) 1.4, [place] # (Auto) 0.6, Eos # (Auto) 0.1, Baso # (Auto) 0.1, Total Counted 100, Neutrophils % (Manual) 83 H, Lymphocytes % (Manual) 13, Monocytes % (Manual) 4, Platelet Estimate Normal, RBC Morphology Normal 10/22/22 06:04: Sodium 137, Potassium 3.6, Chloride 106, Carbon Dioxide 21 L, Anion Gap 13.6, BUN 34 H, Creatinine 1.30 H, Estimated Creat Clear 43, Estimated GFR 53 L, Est GFR ( Amer) 64 D, Glucose 186 H D, Calcium 7.7 L I & O for Labs for Last 24 Hours: Intake & Output 10/19/22 10/20/22 10/21/22 10/22/22 23:59 23:59 23:59 23:59 Intake Total 890 / 1370 720 / 720 Output Total 350 / 350 950 / 950 850 / 850 Balance -350 / -300 -60 / 420 -130 / -130 Weight 65.034 kg 67.132 kg 67.12 kg Microbiology Reports for the Last 24 Hours: Microbiology 10/20/22 20:21 Urine,Clean Catch Urine Culture - Preliminary Mixed Skin Emani Head: Present atraumatic Eyes: Present as per HPI ENT: Present normal exam Neck: Present normal inspection and full ROM Respiratory: Present CTA bilaterally; Absent accessory muscle use Cardiac: Present Reg Rate and Rhythm and S1/S2 GI: Present soft and normal bowel sounds; Absent tenderness Rectal (male): Present deferred and tenderness (male): Present deferred Extremities: Absent normal inspection Skin: Present intact and wounds (decubitus ulcer, ucler of left heal, ucler of right thigh. ) Assessment and Plan *Assessment and plan (1) UTI (urinary tract infection): Status: Acute Category: Medical Code(s): N39.0 - Urinary tract infection, site not specified (2) Decubitus skin ulcer: Status: Acute Category: Medical Code(s): L89.90 - Pressure ulcer of unspecified site, unspecified stage (3) Diabetes mellitus: Status: Acute Category: Medical Code(s): E11.9 - Type 2 diabetes mellitus without complications (4) HTN (hypertension): Status: Acute Qualifiers: Hypertension type: primary hypertension Qualified Code(s): I10 - Essential (primary) hypertension Category: Medical Code(s): I10 - Essential (primary) hypertension (5) CAD in [place] artery: Status: Acute Category: Medical Code(s): I2
--- NOTE | 2022-10-22 11:15 | EXP.SURG.CON ---
History of Present Illness *Admission Date: 10/20/22 *Reason for visit:: Necrotic decubitus ulceration *History of present illness: This is an 81-year-old gentleman seen in consultation from the primary service for evaluation regarding necrotic decubitus ulceration. Please see HPI forwarded from admission H&P below. Forwarded from admission H&P: 81-year-old long-term correction patient with multiple chronic issues. Has had worsening skin ulcers and uncontrolled diabetes. Presented to the ER because of lower abdominal pain and discomfort. Concern for UTI and increased progression of his decubitus ulcers. Admitted for IV antibiotics and further management. [facility] Disclaimer: The information contained in this section may have been updated after the patient was seen, as this information can be updated by other users. Medical History Abnormal electrocardiography ANJALI (acute kidney injury) Arthritis Atrial flutter CAD (coronary artery disease) CAD in [place] artery Cardiomyopathy CKD (chronic kidney disease) stage 3, GFR 30-59 ml/min Diabetes mellitus Dyspnea Edema HTN (hypertension) Hyperlipidemia Left bundle branch block (LBBB) Overweight (BMI 25.0-29.9) Peripheral neuropathy Wound of foot Surgical History History of cardiac cath History of right knee surgery Family History Other No significant family history Social History (Updated 10/20/22 @ 23:55 by Cari Blanco RN) Smoking Status: Former smoker alcohol intake: never substance use type: denies use current occupational status: retired Travel in the last 8 weeks: None housing: correction caffeine: No Review of Systems Constitutional Constitutional: Reports weakness *Musculoskeletal Musculoskeletal: Reports abnormal gait *Neurologic Neurologic: Reports abnormal gait and Reports weakness Meds Home Medications and Allergies Home Medications Medication Instructions Recorded Confirmed Type atorvastatin 10 mg tablet 10 mg PO DAILY Cholesterol 04/03/19 10/20/22 History loratadine 10 mg tablet 10 mg PO DAILY Allergy symptoms 04/03/19 10/20/22 History omeprazole 20 mg capsule,delayed 20 mg PO DAILY Acid reflux 04/03/19 10/20/22 History release aspirin 81 mg tablet,delayed 81 mg PO DAILY Heart disease 05/01/21 10/20/22 History release (Adult Low Dose Aspirin) empagliflozin 10 mg tablet 10 mg PO DAILY CAD 09/20/21 10/20/22 History (Jardiance) lactulose 10 gram/15 mL oral 30 ml PO DAILYP PRN Constipation 09/20/21 10/21/22 History solution sennosides 8.6 mg tablet (senna) 8.6 mg PO DAILYP PRN Constipation 09/20/21 10/20/22 History furosemide 20 mg tablet 20 mg PO DAILY Fluid 09/22/21 10/20/22 History loperamide 2 mg capsule 2 mg PO Q4HP PRN Diarrhea 10/03/21 10/20/22 History ondansetron HCl 4 mg tablet 4 mg PO Q6HP PRN Nausea And 09/11/22 10/20/22 History Vomiting lisinopril 20 mg tablet 20 mg PO DAILY High blood pressure 09/25/22 10/20/22 History rivaroxaban 15 mg tablet (Xarelto) 15 mg PO QPMWITHMEAL Blood 09/25/22 10/20/22 History thinner-AFIB amiodarone 200 mg tablet 200 mg PO DAILY Heart rhythm 10/08/22 10/20/22 History metformin 500 mg tablet 500 mg PO BIDWMEAL Diabetes 10/08/22 10/20/22 History bisoprolol fumarate 5 mg tablet 2.5 mg PO DAILY High blood pressure 10/11/22 10/21/22 History glipizide 10 mg tablet 10 mg PO DAILY Diabetes 10/11/22 10/20/22 History acetaminophen 500 mg tablet 500 mg PO Q4HP PRN Fever Or Pain 10/21/22 10/21/22 History ascorbic acid (vitamin C) 500 mg 500 mg PO BID Supplement 10/21/22 10/21/22 History tablet New Prescriptions to Start Prescriptions: Allergies Allergy/AdvReac Type Severity Reaction Status Date / Time No Known Allergies Allergy Verified 10/11/22 09:20 Exam (Inpt) Vital signs and Labs for Last 24 Anthony
[2022-10-22 11:47] LABS: POC Glucose,Bedside 308 (70-110)
[2022-10-22 11:54] VITALS: BP 106/43; PULSE 49; RESP 16; TEMP 36.7; O2SAT 98
--- NOTE | 2022-10-22 11:57 | HMH.PTWOUND ---
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 He presents with multiple chronic pressure injuries at baseline due to limited mobility (L posterior heel x 2 with largest one measured, R posterior thigh, sacrum). He reports minimal tenderness in the L heel, but significant tenderness with dressing changes to the post R thigh and sacral wounds. Wound Sacrum Wound Type Pressure Ulcer Is This a Chronic Wound Yes Wound Staging Unstageable Query Text:Stage I - Unbroken, red skin, no blanching. Stage II - Skin broken, superficial skin loss involving epidermis alone or also dermis. Partial loss of skin layers. Stage III - Pressure area involves epidermis, dermis and subcutaneous tissue, full thickness skin loss. Stage IV - Pressure area involves epidermis, subcutaneous tissue, bone and other supportive tissue. Full thickness skin loss with extensive destruction of underlying tissue and structures. Wound Length (cm) 13.0 Wound Width (cm) 8.0 Wound Depth (cm) 0.2 Wound Bed Appearance Dusky Red,Yellow,Slough,Eschar ,Peeling Skin,Necrotic Percentage Granulated (%) 25 Percentage of Slough (%) 25 Percentage of Eschar (Black) (%) 50 Wound Margins Description Necrotic Wound Drainage Description Purulent,Brown Drainage Amount Large Drainage Odor Foul Odor Dressing Status Changed,Soiled Packing Type Alginate Primary Dressing Composite Comment optifoam gentle sacrum. Wound Debridement Method Mechanical Wound Debridement Amount of Tissue Minimal Removed Dressing Change Patient Tolerance Tolerated Well Right Posterior Thigh Wound Type Pressure Ulcer Is This a Chronic Wound Yes Wound Staging Stage III Query Text:Stage I
[2022-10-22 16:00] VITALS: BP 113/51; PULSE 52; RESP 18; TEMP 36.4; O2SAT 98
[2022-10-22 17:59] LABS: POC Glucose,Bedside 190 (70-110)
--- NOTE | 2022-10-22 18:55 | PC.NURSE ---
per geoffrey, pt will be NPO after midnight, wound debridement scheduled at 0615. pt has been pleasant this shift, turning from side to side t/o shift. pt has had family at bedside. tracy quinones. no concerns at this time.
[2022-10-22 20:00] VITALS: BP 103/46; PULSE 51; RESP 18; TEMP 36.6; O2SAT 97
[2022-10-23] VITALS (22 sets, daily range): BP systolic 92–133; BP diastolic 47–79; PULSE 50–64; RESP 12–22; TEMP 36.4–37.3; O2SAT 93–100; BMI 22.8
[2022-10-23 00:46] LABS: POC Glucose,Bedside 311 (70-110)
--- NOTE | 2022-10-23 04:45 | PC.NURSE ---
Patient has had no complaints tonight. has rested in bed. Did receive a bath before bed.
--- NOTE | 2022-10-23 06:18 | EXP.SURG.PN ---
Subjective Patient reports: no new complaints Exam Data for Last 24 hours Vital signs and Labs for Last 24 Hours: Temp Pulse Resp BP Pulse Ox 98.2 F 50 L 18 114/53 L 98 10/23/22 04:00 10/23/22 04:00 10/23/22 04:00 10/23/22 04:00 10/23/22 04:00 Laboratory Results - last 24 hr 10/22/22 06:04: WBC 10.0 D, RBC 4.09 L, Hgb 11.8 L, Hct 37.1 L, MCV 90.7, MCH 28.9, MCHC 31.8, RDW 14.6, Plt Count 424, MPV 9.2, Neut % (Auto) 78.3, Lymph % (Auto) 14.3, [place] % (Auto) 5.9, Eos % (Auto) 0.9, Baso % (Auto) 0.6, Neut # (Auto) 7.9 H, Lymph # (Auto) 1.4, [place] # (Auto) 0.6, Eos # (Auto) 0.1, Baso # (Auto) 0.1, Total Counted 100, Neutrophils % (Manual) 83 H, Lymphocytes % (Manual) 13, Monocytes % (Manual) 4, Platelet Estimate Normal, RBC Morphology Normal 10/22/22 06:04: Sodium 137, Potassium 3.6, Chloride 106, Carbon Dioxide 21 L, Anion Gap 13.6, BUN 34 H, Creatinine 1.30 H, Estimated Creat Clear 43, Estimated GFR 53 L, Est GFR ( Amer) 64 D, Glucose 186 H D, Calcium 7.7 L 10/22/22 11:27: POC Glucose 308 H* 10/22/22 16:33: POC Glucose 190 H 10/23/22 00:27: POC Glucose 311 H* I & O for Last 24 hours: Intake & Output 10/20/22 10/21/22 10/22/22 10/23/22 11:59 11:59 11:59 11:59 Intake Total 290 / 290 1320 / 1320 1520 / 1520 Output Total 550 / 550 2250 / 2250 1000 / 1000 Balance -260 / -260 -930 / -930 520 / 520 Weight 148 lb 147 lb 15.588 oz 151 lb Microbiology Reports for the Last 24 Hours: Microbiology 10/20/22 22:14 Blood Blood Culture - Preliminary NO GROWTH AFTER 48 HOURS 10/20/22 21:40 Blood Blood Culture - Preliminary NO GROWTH AFTER 48 HOURS 10/20/22 20:21 Urine,Clean Catch Urine Culture - Final Mixed Skin Emani Yeast Constitutional Constitutional: no acute distress *Routine Respiratory Exam Respiratory: Absent respiratory distress *Routine Cardiovascular Exam Cardiovascular: Absent tachycardia *Routine Skin Exam Comments: unchanged Progress Note: A&P Assessment and plan (1) Decubitus skin ulcer: Status: Acute Assessment and plan: OR this AM for debridement
[2022-10-23 06:20] LABS: MANUAL DIFFERENTIAL MANUAL DIFFERENTIAL (MANUAL DIFF)
[2022-10-23 06:22] LABS: Eosinophils # 0.2 K/mm3 (0.0-0.4); Monocytes # 0.9 K/mm3 (0.1-1.0); Red Blood Count 3.67 M/mm3 (4.60-6.20)
[2022-10-23 06:23] LABS: Chloride 110 mmol/L (98-107); Sodium 139 mmol/L (136-145)
[2022-10-23 06:24] LABS: Potassium 3.9 mmoL/L (3.5-5.1)
[2022-10-23 06:26] LABS: Anion Gap 11.9 mEq/L (5-15); Blood Urea Nitrogen 40 mg/dl (9-20); Carbon Dioxide 21 mmol/L (22.0-30.0); Creatinine Clearance Estimated 52 mL/min (50-200); Estimated Glomerular Filt Rate 64 ml/min (>60); GFR (African American) 78 ML/MIN (>60)
[2022-10-23 06:27] LABS: POC Glucose,Bedside 206 (70-110)
[2022-10-23 06:27] LABS: Calcium 7.6 mg/dl (8.4-10.2); Glucose 198 mg/dl (74-100)
[2022-10-23 06:41] LABS: Basophils % 0.2 % (0.1-2.0); Hematocrit 33.4 % (42.0-52.0); Lymphocytes # 1.8 K/mm3 (0.7-4.5); Mean Corpuscular HGB Conc 30.9 g/dL (31.8-35.4); Mean Corpuscular Hemoglobin 28.1 pg (27.0-31.2); Mean Corpuscular Volume 90.9 fl (80-94); Mean Platelet Volume 8.7 fl (7.4-10.4); Monocytes % 8.8 % (1.7-9.3); Neutrophils # 6.8 K/mm3 (1.8-7.8); Platelet Count 391 K/mm3 (142-424); Red Cell Distribution Width 14.3 % (11.5-17.5); White Blood Count 9.7 K/mm3 (4.8-10.8)
[2022-10-23 06:42] LABS: Hemoglobin 10.3 g/dL (14.1-18.0)
--- NOTE | 2022-10-23 06:44 | P.PN_ITS ---
[facility] Disclaimer: The information contained in this section may have been updated after the patient was seen, as this information can be updated by other users. Medical History Abnormal electrocardiography ANJALI (acute kidney injury) Arthritis Atrial flutter CAD (coronary artery disease) CAD in [place] artery Cardiomyopathy CKD (chronic kidney disease) stage 3, GFR 30-59 ml/min Diabetes mellitus Dyspnea Edema HTN (hypertension) Hyperlipidemia Left bundle branch block (LBBB) Overweight (BMI 25.0-29.9) Peripheral neuropathy Wound of foot Surgical History History of cardiac cath History of right knee surgery Family History Other No significant family history Social History (Updated 10/20/22 @ 23:55 by Cari Blanco RN) Smoking Status: Former smoker alcohol intake: never substance use type: denies use current occupational status: retired Travel in the last 8 weeks: None housing: fdc caffeine: No [facility] Anesthesia Checklist Patient Identification Patient Identification: Arm Band Structural Data Admitted From: Inpatient Planned Operative Procedure/s: I&D Decubitus Ulcer Consent for Planned Operative Procedure(s) Verified: Yes Verified Documents: Surgical Consent and History and Physical NPO Status Verified Time NPO: 00:00 Additional verifications Anesthesia Reactions: No Airway Assessment C-Spine Mobility Assessed: Yes TMJ Mobility Assessed: Yes Dentition: Poor Dentition Neurological Assessment Level of Consciousness: Awake and Alert Anesthesia Plan Anesthesia Risk discussed: Yes Anesthesia Plan: Verified ASA Class: III Anesthesia Type: General
--- NOTE | 2022-10-23 07:02 | EXP.OP.NOTE ---
Date of procedure: 10/23/22 Pre-op Diagnosis:: Decubitus ulcerations (sacrum and right thigh) Post-op Diagnosis:: Same Procedure performed:: Debridement of necrotic sacral decubitus ulceration and right thigh wound Surgeon:: Driss Loya MD GAS SYSTEMS WORKER:: Noah Salazar Anesthesia: local and LMA Estimated blood loss (mL): 25 Operative findings:: Necrotic subcutaneous tissue to the level of sacral margin No definitive muscular necrosis Operative note:: After informed consent was obtained the patient was taken to the operating room and placed in the left lateral decubitus position. General anesthesia with laryngeal mask airway was achieved. The sacral region and right thigh region were prepped and draped in a sterile fashion. Necrotic tissue was debrided with electrocautery from the large complex sacral wound. Tissue debridement to the level of the sacral margin was completed. No definitive necrotic musculature was seen. The right lateral thigh wound was treated in the same manner. The region was infiltrated with 1% lidocaine. Dry gauze dressings were applied and the patient was transferred to recovery. Condition: stable Disposition: PACU Specimens:: Necrotic sacral region tissue for culture Complications:: No immediate
--- NOTE | 2022-10-23 07:08 | P.PNANES_ITS ---
[facility] Anesthesia Record Part I Anesthesia Record I Intake, IV Amount: 200 Estimated blood loss (mL): 25 Urine output (mL): 0 Blood Products used (#): none Blood Pressure: 92/49 SaO2: 93 Pulse Rate: 55 Respiratory Rate: 16 Temperature: 97.6 F Patient is:: Drowsy and Stable Stable to PACU at:: 07:05
[2022-10-23 07:22] LABS: POC Glucose,Bedside 188 (70-110)
[2022-10-23 09:26] LABS: Eosinophils % 1 % (0-3); Lymphocytes % 16 % (10-50); Monocytes % 5 % (2-9); Neutrophils % 78 % (42-76); Platelet Estimate Slight Increase; RBC Morphology Normal; Total Cells Counted 100
--- NOTE | 2022-10-23 10:09 | P.PNANES_ITS ---
[facility] Anesthesia Record Part II Anesthesia Record Part II Discharge Time: 07:35 Destination: Medical Surgical Department PACU nurse assessment reviewed?: Yes Patient Condition:: Good Anesthesia Complications:: None Swallowing reflex intact?: Yes Cyanosis?: No Blood Pressure: 101/47 Pulse Rate: 56 Temperature: 97.6 F Mental Status: Alert & Oriented Pain level:: 0 Nausea and/or vomitting:: None Intake, IV Amount: 0
[2022-10-23 11:02] LABS: POC Glucose,Bedside 294 (70-110)
[2022-10-23 17:19] LABS: POC Glucose,Bedside 227 (70-110)
--- NOTE | 2022-10-23 18:34 | PC.NURSE ---
A&OX4. TOLERATING RA WELL. PT TOLERATED PROCEDURE WELL THIS MORNING. HAS HAD NO C/O SINCE. ONLY REQUEST WAS TYLENOL. GIVEN PER JUL. F/C REMOVED THIS SHIFT, TOLERATED WELL. DURING A PATIENT TURN, DRESSINGS FOUND TO BE SATURATED IN BRIGHT RED BLOOD. NEW DRESSINGS APPLIED. TOLERATED WELL. NO OTHER NEEDS THUS FAR, VSS.
--- NOTE | 2022-10-23 19:55 | EXP.ACUTE.PN ---
Subjective *Date: 10/23/22 *Time: 12:00 Interval history: Patient went for surgery this morning debridement of his decubitus ulcer. Oriska good on rounds given the administration of local anesthesia. Denies any nausea, vomiting, diarrhea. Tolerating p.o. intake after surgery. Stable on room air. Afebrile. Medical Exam Vital signs and Labs for Last 24 Hours: Vital Signs Temp Pulse Pulse Resp BP BP Pulse Ox 10/23/22 14:25 98.0 F 50 L 17 105/52 L 99 10/23/22 13:25 98.3 F 50 L 16 100/51 L 100 10/23/22 12:25 98.0 F 52 L 17 120/68 98 10/23/22 11:25 98.2 F 50 L 17 122/67 99 10/23/22 10:25 98.1 F 50 L 17 123/79 98 10/23/22 09:55 98.2 F 50 L 18 113/55 L 98 10/23/22 09:25 98.0 F 50 L 17 113/48 L 99 10/23/22 08:55 98.0 F 53 L 17 112/58 L 97 10/23/22 15:06 97.9 F 50 L 16 115/58 L 100 10/23/22 08:25 97.9 F 51 L 17 116/48 L 98 10/23/22 08:10 98.1 F 54 L 17 116/67 97 10/23/22 07:55 98.0 F 55 L 17 112/54 L 98 10/23/22 07:40 98.0 F 52 L 18 106/47 L 95 10/23/22 07:35 97.6 F 56 L 22 101/47 L 95 10/23/22 07:25 97.6 F 56 L 12 104/52 L 96 10/23/22 07:15 97.6 F 60 14 100/52 L 95 10/23/22 07:05 97.6 F 58 L 18 92/49 L 96 10/23/22 04:00 98.2 F 50 L 18 114/53 L 98 10/23/22 00:00 99.1 F 52 L 18 133/65 96 10/22/22 20:00 97.9 F 51 L 18 103/46 L 97 10/23/22 07:11 97.6 F 55 L 16 92/49 L Intake and Output 10/23/22 10/23/22 10/23/22 07:59 15:59 23:59 Intake Total 200 / 620 300 / 620 120 / 620 Output Total 0 / 1300 1300 / 1300 0 / 1300 Balance 200 / -680 -1000 / -680 120 / -680 Intake: Intake, Oral Amount 300 / 420 120 / 420 Intake, Total IV Amount 200 / 200 0 / 200 Output: Output, Urine Amount 0 / 1300 1300 / 1300 0 / 1300 Other: Number of Unmeasured Voids 0 0 0 Weight 68.492 kg Patient Weight 10/23/22 23:59 Weight 68.492 kg Laboratory Results - last 24 hr 10/23/22 00:27: POC Glucose 311 H* 10/23/22 05:40: POC Glucose 206 H 10/23/22 05:55: WBC 9.7, RBC 3.67 L, Hgb 10.3 L D, Hct 33.4 L, MCV 90.9, MCH 28.1, MCHC 30.9 L, RDW 14.3, Plt Count 391, MPV 8.7, Neut % (Auto) 70.0, Lymph % (Auto) 19.0, [place] % (Auto) 8.8, Eos % (Auto) 2.0, Baso % (Auto) 0.2, Neut # (Auto) 6.8, Lymph # (Auto) 1.8, [place] # (Auto) 0.9, Eos # (Auto) 0.2, Baso # (Auto) 0.0, Total Counted 100, Neutrophils % (Manual) 78 H, Lymphocytes % (Manual) 16, Monocytes % (Manual) 5, Eosinophils % (Manual) 1, Platelet Estimate Slight increase, RBC Morphology Normal 10/23/22 05:55: Sodium 139, Potassium 3.9, Chloride 110 H, Carbon Dioxide 21 L, Anion Gap 11.9, BUN 40 H, Creatinine 1.10, Estimated Creat Clear 52, Estimated GFR 64, Est GFR ( Amer) 78 D, Glucose 198 H, Calcium 7.6 L 10/23/22 07:15: POC Glucose 188 H 10/23/22 10:44: POC Glucose 294 H 10/23/22 17:08: POC Glucose 227 H I & O for Labs for Last 24 Hours: Intake & Output 10/20/22 10/21/22 10/22/2206/23 23:59 23:59 23:59 23:59 Intake Total 890 / 1370 2240 / 2240 620 / 620 Output Total 350 / 350 950 / 950 2500 / 2500 1300 / 1300 Balance -350 / -300 -60 / 420 -260 / -260 -680 / -680 Weight 65.034 kg 67.132 kg 67.12 kg 68.492 kg Microbiology Reports for the Last 24 Hours: Microbiology 10/20/22 22:14 Blood Blood Culture - Preliminary NO GROWTH AFTER 48 HOURS 10/20/22 21:40 Blood Blood Culture - Preliminary NO GROWTH AFTER 48 HOURS Head: Present atraumatic Eyes: Present as per HPI ENT: Present normal exam Neck: Present normal inspection and full ROM Respiratory: Present CTA bilaterally; Absent accessory muscle use Cardiac: Present Reg Rate and Rhythm and S1/S2 GI: Present soft and normal bowel sounds; Absent tenderness Rectal (male): Present deferred and tenderness (male): Present deferred Extremities: Absent normal inspection Skin: Present intact and wounds
[2022-10-23 22:49] LABS: POC Glucose,Bedside 252 (70-110)
[2022-10-24] VITALS: BP 120/55; PULSE 52; RESP 18; TEMP 36.8; O2SAT 97
[2022-10-24 04:00] VITALS: BP 120/56; PULSE 62; RESP 18; TEMP 37.2; O2SAT 97; BMI 22.5
--- NOTE | 2022-10-24 04:39 | PC.NURSE ---
Pt has rested well tonight. Scott was removed on dayshift and patient has voided spontaneously multiple times tonight. RN did have to change patient dressing as they were saturated. Patient tolerated it well.
[2022-10-24 06:19] LABS: MANUAL DIFFERENTIAL MANUAL DIFFERENTIAL (MANUAL DIFF)
[2022-10-24 06:29] LABS: Basophils % 0.1 % (0.1-2.0); Eosinophils # 0.2 K/mm3 (0.0-0.4); Eosinophils % 1.6 % (0.1-12.0); Hematocrit 33.1 % (42.0-52.0); Hemoglobin 10.2 g/dL (14.1-18.0); Lymphocytes # 1.5 K/mm3 (0.7-4.5); Lymphocytes % 14.2 % (10-50); Mean Corpuscular HGB Conc 30.9 g/dL (31.8-35.4); Mean Corpuscular Hemoglobin 28.1 pg (27.0-31.2); Mean Platelet Volume 10.3 fl (7.4-10.4); Monocytes # 0.8 K/mm3 (0.1-1.0); Monocytes % 7.1 % (1.7-9.3); Neutrophils # 8.1 K/mm3 (1.8-7.8); Neutrophils % 76.9 % (37.0-80.0); Platelet Count 444 K/mm3 (142-424); Red Blood Count 3.63 M/mm3 (4.60-6.20); Red Cell Distribution Width 14.6 % (11.5-17.5); White Blood Count 10.5 K/mm3 (4.8-10.8)
[2022-10-24 06:31] LABS: Chloride 110 mmol/L (98-107); Sodium 136 mmol/L (136-145)
[2022-10-24 06:35] LABS: Blood Urea Nitrogen 36 mg/dl (9-20); Calcium 7.3 mg/dl (8.4-10.2); Carbon Dioxide 19 mmol/L (22.0-30.0); Creatinine Clearance Estimated 56 mL/min (50-200); Estimated Glomerular Filt Rate 81 ml/min (>60); GFR (African American) 98 ML/MIN (>60); Glucose 226 mg/dl (74-100)
[2022-10-24 07:19] LABS: POC Glucose,Bedside 270 (70-110)
[2022-10-24 07:22] VITALS: BP 125/62; PULSE 54; RESP 16; TEMP 36.6; O2SAT 99
[2022-10-24 08:00] VITALS: O2SAT 99
[2022-10-24 08:00] LABS: Lymphocytes % 10 % (10-50); Monocytes % 11 % (2-9); Neutrophils % 79 % (42-76); Platelet Estimate Slight Increase; RBC Morphology Normal; Total Cells Counted 100
--- NOTE | 2022-10-24 08:22 | EXP.DC.SUM ---
General Admission date:: 10/20/22 Discharge date: 10/24/22 HPI HPI HPI: This is an 81-year-old gentleman seen in consultation from the primary service for evaluation regarding necrotic decubitus ulceration. Please see HPI forwarded from admission H&P below. Forwarded from admission H&P: 81-year-old long-term snf patient with multiple chronic issues. Has had worsening skin ulcers and uncontrolled diabetes. Presented to the ER because of lower abdominal pain and discomfort. Concern for UTI and increased progression of his decubitus ulcers. Admitted for IV antibiotics and further management. Hospital Course Hospital Course Hospital Course: 81-year-old male who presented with lower abdominal pain.? Found to have worsening decubitus ulcers and UTI.? Initiated on IV antibiotics. Surgery consulted. Taken for debridement on 10/23, tolerated procedure well. Initially on IV antibiotics. Will transition to oral antibiotics to complete 14 days total of therapy. Additionally covering for UTI, urine has only grown yeast however. Voiding independently. Stable for discharge back to nursing facility for continued wound management. Of note, pressure-relief mattress Topper and wheelchair cushion (waffle cushions) sent with patient's family and should be at the facility for his usage. Problems addressed as follows: Urinary tract infection Decubitus wounds, foul drainage -Initially treated with vancomycin, cefepime, Flagyl for broad coverage of his wounds and UTI. Urine growing only yeast. Voiding independently. Have not continued any antifungal therapy for yeast at this time. Will transition to oral antibiotics to complete 10 more days of levofloxacin and 7 more days of metronidazole to give 10 days total of Flagyl and 14 days total therapy for decubitus wounds. Kidney function initially elevated on arrival, improved during admission with fluid resuscitation. Surgery was consulted and assisted with care with debridement. Patient will follow-up with surgery in the coming weeks as an outpatient. Stable for discharge home. Continue aggressive pressure relief with rotating patient every 2 hours. Recommend offloading any pressure on sacrum if it has a chance to heal. Dressing changes daily with dry packing. Diabetes, uncontrolled -A1c 9.3 on admission. Initiated on sliding scale insulin with fingersticks ACHS. Continued home metformin twice daily and empagliflozin daily. Held glipizide during admission, resume at discharge. Consider further adjustment to regimen given A1c above goal of 7 Continue bisoprolol and lisinopril for hypertension. Continue Lipitor, aspirin for CAD Continue Xarelto and amiodarone for A-fib/a flutter Stable for discharge back to nursing facility. Wounds appear healthy today. Recommend wound eval on arrival and daily care. [facility] Exam Data for Last 24 hours Vital signs and Labs for Last 24 Hours: Temp Pulse Resp BP Pulse Ox 97.9 F 54 L 16 125/62 99 10/24/22 07:22 10/24/22 07:22 10/24/22 07:22 10/24/22 07:22 10/24/22 07:22 Laboratory Results - last 24 hr 10/23/22 05:55: Total Counted 100, Neutrophils % (Manual) 78 H, Lymphocytes % (Manual) 16, Monocytes % (Manual) 5, Eosinophils % (Manual) 1, Platelet Estimate Slight increase, RBC Morphology Normal 10/23/22 10:44: POC Glucose 294 H 10/23/22 17:08: POC Glucose 227 H 10/23/22 20:48: POC Glucose 252 H 10/24/22 05:20: WBC 10.5, RBC 3.63 L, Hgb 10.2 L, Hct 33.1 L, MCV 91.0, MCH 28.1, MCHC 30.9 L, RDW 14.6, Plt Count 444 H, MPV 10.3, Neut % (Auto) 76.9, Lymph % (Auto) 14.2, [place] % (Auto) 7.1, Eos % (Auto) 1.6, Baso % (Auto) 0.1, Neut # (Auto) 8.1 H, Lymph # (Auto) 1.5, [place] # (Auto) 0.8, Eos # (Auto) 0.2, Baso # (Auto) 0.0, Total Counted 100, Neutrophils % (Manual) 79 H, Lymphocytes % (Manual) 10, Monocytes % (Manual) 11 H, Platelet Estimate Slight increase, RBC Morphology
--- NOTE | 2022-10-24 08:28 | EXP.SURG.PN ---
Subjective Narrative: The patient states that he is a little sore but okay . He reports that his dressing change was just completed a little bit ago this morning . Nursing reports no issues with dressing changes. Exam Data for Last 24 hours Vital signs and Labs for Last 24 Hours: Temp Pulse Resp BP Pulse Ox 97.9 F 54 L 16 125/62 99 10/24/22 07:22 10/24/22 07:22 10/24/22 07:22 10/24/22 07:22 10/24/22 07:22 Laboratory Results - last 24 hr 10/23/22 05:55: Total Counted 100, Neutrophils % (Manual) 78 H, Lymphocytes % (Manual) 16, Monocytes % (Manual) 5, Eosinophils % (Manual) 1, Platelet Estimate Slight increase, RBC Morphology Normal 10/23/22 10:44: POC Glucose 294 H 10/23/22 17:08: POC Glucose 227 H 10/23/22 20:48: POC Glucose 252 H 10/24/22 05:20: WBC 10.5, RBC 3.63 L, Hgb 10.2 L, Hct 33.1 L, MCV 91.0, MCH 28.1, MCHC 30.9 L, RDW 14.6, Plt Count 444 H, MPV 10.3, Neut % (Auto) 76.9, Lymph % (Auto) 14.2, [place] % (Auto) 7.1, Eos % (Auto) 1.6, Baso % (Auto) 0.1, Neut # (Auto) 8.1 H, Lymph # (Auto) 1.5, [place] # (Auto) 0.8, Eos # (Auto) 0.2, Baso # (Auto) 0.0, Total Counted 100, Neutrophils % (Manual) 79 H, Lymphocytes % (Manual) 10, Monocytes % (Manual) 11 H, Platelet Estimate Slight increase, RBC Morphology Normal 10/24/22 05:20: Sodium 136, Potassium 4.0, Chloride 110 H, Carbon Dioxide 19 L, Anion Gap 11.0, BUN 36 H, Creatinine 0.90, Estimated Creat Clear 56, Estimated GFR 81, Est GFR ( Amer) 98 D, Glucose 226 H, Calcium 7.3 L 10/24/22 06:11: POC Glucose 270 H I & O for Last 24 hours: Intake & Output 0610/22/22 10/23/22 10/24/22 11:59 11:59 11:59 11:59 Intake Total 290 / 290 1320 / 1320 1720 / 1720 660 / 660 Output Total 550 / 550 2250 / 2250 1000 / 1000 2600 / 2600 Balance -260 / -260 -930 / -930 720 / 720 -1940 / -1940 Weight 148 lb 147 lb 15.588 oz 151 lb 148 lb 8 oz Constitutional Constitutional: no acute distress *Routine Respiratory Exam Respiratory: Absent respiratory distress *Routine Cardiovascular Exam Cardiovascular: Absent tachycardia *Routine Skin Exam Comments: Sacral region evaluation deferred per patient request as he states that he has just undergone a dressing change. Progress Note: A&P Assessment and plan (1) Decubitus skin ulcer: Status: Acute Assessment and plan: Overall, doing well status post debridement of large complex sacral decubitus ulceration and right hip necrotic wound/pressure ulceration. Continue dressing changes Complete course of antibiotics as per primary service
--- NOTE | 2022-10-24 09:41 | DIET.NUTRFU ---
Chart reviewed and verified with patient, no BM since 10/20. He has multiple meds in place PRN, not given. Meal intake has been good at 50-75%. According to patient this typically give him meds to help at [place] also. Nursing aware and will provide BM regimen today.
--- NOTE | 2022-10-24 10:02 | PC.NURSE ---
pt had c/o left leg pain at 0830, 10 out of 10. reassessed and pt still c/o left leg pain 10 out of 10. called nataliya, pt received gabapentin at 0957.
[2022-10-24 10:58] VITALS: BP 140/58; PULSE 64; RESP 18; TEMP 36.7; O2SAT 98
[2022-10-24 10:58] LABS: POC Glucose,Bedside 302 (70-110)
--- NOTE | 2022-10-24 14:37 | PC.NURSE ---
report called to spike ortega hickory
--- NOTE | 2022-10-25 13:43 | CARE MANAGER ---
Called and spoke with Maria Luisa L[place], who states that patient is doing well. No concerns at time of call.
== END 2022-10-24 14:38 | DRG 853 ==
LOC: ER 21:08 → 2ND 21:53
PROVIDERS: Nurse Practitioner Family; Physician Assistant; Surgery; Admitting Provider Internal Medicine Adolescent Medicine; Emergency Provider Emergency Medicine; Visit Provider Internal Medicine Adolescent Medicine
PROC: 0JB90ZZ Excision of Buttock Subcutaneous Tissue and Fascia, Open Approach (ICD-10-PCS; principal; 2022-10-23 06:30)
DX: A41.9 Sepsis, unspecified organism (principal); L89.154 Pressure ulcer of sacral region, stage 4; N17.9 Acute kidney failure, unspecified; R65.20 Severe sepsis without septic shock; E11.65 Type 2 diabetes mellitus with hyperglycemia; Z79.84 Long term (current) use of oral hypoglycemic drugs; E11.22 Type 2 diabetes mellitus with diabetic chronic kidney disease; N18.31 Chronic kidney disease, stage 3a; E78.5 Hyperlipidemia, unspecified; E11.42 Type 2 diabetes mellitus with diabetic polyneuropathy; Z79.4 Long term (current) use of insulin
CPT/HCPCS: 11042; 11045; 36415; 71045; 74177; 80048; 80053; 81001; 82009; 82150; 82962; 83036; 83605; 83690; 85007; 85014; 85018; 85025; 85048; 85049; 87040; 87070; 87077; 87086; 87186; 87205; 87636; 93005; 99285; C9803; J0692; J0696; J2405; J3370; Q9967; U0003; U0005

== ENCOUNTER 2022-10-29 21:03 | Observation (INO) | payer MEDICARE, OTHER, MEDICAID, SELFPAY ==
[2022-10-29 21:03] VITALS: BP 136/67; PULSE 65; RESP 17; TEMP 36.7; O2SAT 98; BMI 22.8
[2022-10-29 21:31] VITALS: BP 108/41; PULSE 57; O2SAT 100
--- NOTE | 2022-10-29 21:33 | HMH.EDWNDL ---
Discharge Plan Disposition Patient Disposition: Admitted Chief Complaint: Wound/Laceration Clinical Impressions Clinical Impression: Decubitus ulcer of coccygeal region, stage 4, Sacral decubitus ulcer, stage IV, Diabetes mellitus Discharge ED Provider: Ata (ED)Garrett Wound/Laceration HPI General Chief Complaint: Wound/Laceration Stated Complaint: Pressure Ulcer Time Seen by Provider: 10/29/22 21:15 Mode of Arrival: EMS Source of Information: Patient, EMS and Medical Record Limitations: No Limitations Description of Symptoms (Recalled from ER Triage Doc. by RN): 81 M presents via EMS from [facility] after the staff cleaned his wound on his coccyx and redressed with new dressings. Staff report 30 min after doing this he began to soak through his dressing. The called the doctor on-call who advised them to send the patient to ED for further eval. History of Present Illness HPI narrative: sent from [facility] with inc bleeding from sacral decubitus and was sent for eval - pt with no specific c/o Onset (ago): day(s) Location: other (sacral) Place: other ([facility]) Related Data Home Medications Medication Instructions Recorded Confirmed atorvastatin 10 mg tablet 10 mg PO DAILY Cholesterol 04/03/19 10/29/22 loratadine 10 mg tablet 10 mg PO DAILY Allergy symptoms 04/03/19 10/29/22 omeprazole 20 mg capsule,delayed 20 mg PO DAILY Acid reflux 04/03/19 10/29/22 release aspirin 81 mg tablet,delayed 81 mg PO DAILY Heart disease 05/01/21 10/29/22 release (Adult Low Dose Aspirin) empagliflozin 10 mg tablet 10 mg PO DAILY CAD 09/20/21 10/29/22 (Jardiance) lactulose 10 gram/15 mL oral 30 ml PO DAILYP PRN Constipation 09/20/21 10/29/22 solution sennosides 8.6 mg tablet (senna) 8.6 mg PO DAILYP PRN Constipation 09/20/21 10/29/22 furosemide 20 mg tablet 20 mg PO DAILY Fluid 09/22/21 10/29/22 loperamide 2 mg capsule 2 mg PO Q4HP PRN Diarrhea 10/03/21 10/29/22 ondansetron HCl 4 mg tablet 4 mg PO Q6HP PRN Nausea And 09/11/22 10/29/22 Vomiting lisinopril 20 mg tablet 20 mg PO DAILY High blood pressure 09/25/22 10/29/22 rivaroxaban 15 mg tablet (Xarelto) 15 mg PO QPMWITHMEAL Blood 09/25/22 10/29/22 thinner-AFIB amiodarone 200 mg tablet 200 mg PO DAILY Heart rhythm 10/08/22 10/29/22 metformin 500 mg tablet 500 mg PO BIDWMEAL Diabetes 10/08/22 10/29/22 bisoprolol fumarate 5 mg tablet 2.5 mg PO DAILY High blood pressure 10/11/22 10/29/22 glipizide 10 mg tablet 10 mg PO DAILY Diabetes 10/11/22 10/29/22 acetaminophen 500 mg tablet 500 mg PO Q4HP PRN Fever Or Pain 10/21/22 10/29/22 ascorbic acid (vitamin C) 500 mg 500 mg PO BID Supplement 10/21/22 10/29/22 tablet amino acids-protein hydrolysate 17 30 ml PO BID Supplement 10/29/22 10/29/22 gram-100 kcal/30 mL liquid packet (Pro-Stat AWC) gabapentin 100 mg capsule 100 mg PO TID Pain 10/29/22 10/29/22 metronidazole 500 mg tablet 500 mg PO TID Infection 10/29/22 10/29/22 Allergies Allergy/AdvReac Type Severity Reaction Status Date / Time No Known Allergies Allergy Verified 10/11/22 09:20 [facility] Disclaimer: The information contained in this section may have been updated after the patient was seen, as this information can be updated by other users. Medical History Abnormal electrocardiography ANJALI (acute kidney injury) Arthritis Atrial flutter CAD (coronary artery disease) CAD in [place] artery Cardiomyopathy CKD (chronic kidney disease) stage 3, GFR 30-59 ml/min Diabetes mellitus Dyspnea Edema HTN (hypertension) Hyperlipidemia Left bundle branch block (LBBB) Overweight (BMI 25.0-29.9) Peripheral neuropathy Wound of foot Surgical History History of cardiac cath History of right knee surgery Family History Other No significant family history Social History (Updated 10/20/22 @ 23:55 by Skylar
[2022-10-29 22:00] VITALS: BP 84/43; PULSE 59; O2SAT 99
[2022-10-29 22:07] LABS: Alanine Aminotransferase 69 U/L (12-78); Albumin Level 2.7 g/dl (3.5-5.0); Albumin/Globulin Ratio 0.8 (1.1-1.8); Alkaline Phosphatase 96 U/L (38-126); Anion Gap 17.6 mEq/L (5-15); Aspartate Amino Transferase 72 U/L (17-59); Bilirubin,Total 0.5 mg/dl (0.2-1.3); Blood Urea Nitrogen 31 mg/dl (9-20); Calcium 7.6 mg/dl (8.4-10.2); Carbon Dioxide 20 mmol/L (22.0-30.0); Chloride 105 mmol/L (98-107); Creatinine Clearance Estimated 44 mL/min (50-200); Estimated Glomerular Filt Rate 53 ml/min (>60); GFR (African American) 64 ML/MIN (>60); Globulin 3.4 g/dL (1.3-3.2); Glucose 371 mg/dl (74-100); Potassium 4.6 mmoL/L (3.5-5.1); Sodium 138 mmol/L (136-145); Total Protein,Serum 6.1 g/dl (6.3-8.2)
[2022-10-29 22:08] LABS: Basophils % 0.3 % (0.1-2.0); Eosinophils # 0.2 K/mm3 (0.0-0.4); Eosinophils % 1.2 % (0.1-12.0); Hematocrit 35.7 % (42.0-52.0); Hemoglobin 10.7 g/dL (14.1-18.0); Lymphocytes % 22.9 % (10-50); Mean Corpuscular HGB Conc 30.1 g/dL (31.8-35.4); Mean Corpuscular Hemoglobin 27.8 pg (27.0-31.2); Mean Corpuscular Volume 92.2 fl (80-94); Mean Platelet Volume 8.9 fl (7.4-10.4); Monocytes # 0.9 K/mm3 (0.1-1.0); Monocytes % 6.8 % (1.7-9.3); Neutrophils % 68.8 % (37.0-80.0); Platelet Count 631 K/mm3 (142-424); Red Blood Count 3.87 M/mm3 (4.60-6.20); Red Cell Distribution Width 15.3 % (11.5-17.5); White Blood Count 13.1 K/mm3 (4.8-10.8)
[2022-10-29 22:30] VITALS: BP 87/51; PULSE 59; O2SAT 99
[2022-10-29 23:01] VITALS: BP 94/41; PULSE 56; O2SAT 100
[2022-10-29 23:30] VITALS: BP 92/54; PULSE 57; O2SAT 99
--- NOTE | 2022-10-29 23:40 | PC.NURSE ---
Pt cleaned up and turned to his left side. No needs voiced at this time. Pt provided with drink.
--- NOTE | 2022-10-29 23:44 | PC.NURSE ---
Wound care completed during brief change due to incontinence. Patient has a [id number] Stage IV wound to his coccyx. Large clots, a reddened wound bed with bleeding, bone and tunneling assessed when wound bed cleaned. There is also a [id number] Stage III noted to left buttock. Wound bed is white, brown edges noted. Both wounds cleansed and new wet to dry dressings placed.
[2022-10-30] VITALS (9 sets, daily range): BP systolic 80–113; BP diastolic 40–61; PULSE 56–61; RESP 16–20; TEMP 36.4–36.8; O2SAT 94–100; BMI 21.1
[2022-10-30 00:33] LABS: Coronavirus 19, PCR Not Detected (NotDetected); Influenza A, PCR Not Detected (NotDetected); Influenza B, PCR Not Detected (NotDetected)
--- NOTE | 2022-10-30 00:36 | PC.NURSE ---
Hospitalist, Al, at BS
[2022-10-30 00:38] LABS: Acetone, Serum (Rapid) None Detected (None Detect)
--- NOTE | 2022-10-30 00:47 | EXP.HP ---
History of Present Illness *Admission Date: 10/30/22 *Reason for visit:: Bleeding Decubitus Ulcer *History of present illness: Mr. White is a 81-year-old male who is a resident of a long-term care facility. He was just discharged from the facility on 10/24 where he was seen for a necrotic decubitus ulcer. He underwent I/D of the ulceration and was discharged to the [facility] on oral antibiotics and wound care. He presents back to [facility] due to bleeding at the decibitus ulcer site. Per notes and discussion with the patient and ER Physician the facility had issues with the wound saturating the dressings so he was sent back to the ER for evaluation. In the ER the patient had the wounds packed, CBC showed a WBC that was slightly elevated at 13K, On CMP creatinine was slightly elevated at 1.30. The patient was discharged on oral antibiotic therapy which is still continued. The patient was started on iv fluids. The Surgeon will be consulted for evaluation and any further recommendations. [facility] Disclaimer: The information contained in this section may have been updated after the patient was seen, as this information can be updated by other users. Medical History Abnormal electrocardiography ANJALI (acute kidney injury) Arthritis Atrial flutter CAD (coronary artery disease) CAD in [place] artery Cardiomyopathy CKD (chronic kidney disease) stage 3, GFR 30-59 ml/min Diabetes mellitus Dyspnea Edema HTN (hypertension) Hyperlipidemia Left bundle branch block (LBBB) Overweight (BMI 25.0-29.9) Peripheral neuropathy Wound of foot Surgical History History of cardiac cath History of right knee surgery Family History Other No significant family history Social History Smoking Status: Former smoker alcohol intake: never substance use type: denies use current occupational status: retired Travel in the last 8 weeks: None housing: residential caffeine: No Review of Systems Review of Systems Review of systems:: pertinent systems reviewed and negative unless documented below Constitutional Constitutional: Reports system reviewed and no additional complaints, except as documented Eyes Eyes: Reports system reviewed and no additional complaints, except as documented ENT Ears, Nose, Mouth, and Throat: Reports system reviewed and no additional complaints, except as documented *Cardiovascular Cardiovascular: Reports system reviewed and no additional complaints, except as documented *Respiratory Respiratory: Reports system reviewed and no additional complaints, except as documented *Gastrointestinal Gastrointestinal: Reports system reviewed and no additional complaints, except as documented *Genitourinary Genitourinary: Reports system reviewed and no additional complaints, except as documented *Musculoskeletal Musculoskeletal: Reports other Comments: Pain in buttocks *Neurologic Neurologic: Reports system reviewed and no additional complaints, except as documented Psychiatric Psychiatric: Reports system reviewed and no additional complaints, except as documented Endocrine Endocrine: Reports system reviewed and no additional complaints, except as documented Hematologic/Lymphatic Hematologic/Lymphatic: Reports system reviewed and no additional complaints, except as documented Allergic/Immunologic Allergic/Immunologic: Reports system reviewed and no additional complaints, except as documented Meds Home Medications and Allergies Home Medications Medication Instructions Recorded Confirmed Type atorvastatin 10 mg tablet 10 mg PO DAILY Cholesterol 04/03/19 10/29/22 History loratadine 10 mg tablet 10 mg PO DAILY Allergy symptoms 04/03/19 10/29/22 History omeprazole 20 mg capsule,delayed 20 mg PO TORSTEN
--- NOTE | 2022-10-30 01:51 | PC.NURSE ---
Waffle mattress overlay placed on bed to allow for pressure relief. Heel protectors and elbow protectors placed on patient. Pillows placed under legs to float heels. Patient repositioned with wedge to assist with pressure relief to sacral decubitus.
--- NOTE | 2022-10-30 02:06 | PC.WOUNDNOTE ---
right thigh right thigh left heel right heel
--- NOTE | 2022-10-30 05:21 | PC.NURSE ---
Patient admitted to floor from ER for multiple pressure ulcers. Consent obtained and photographs taken and placed in chart, all wounds cleansed and new dressings applied. Patient A&Ox4, pleasant and cooperative. Educated on importance of protecting bony prominences and preventing further skin breakdown. Turned Q2 using wedge pillow. VSS.
[2022-10-30 05:49] LABS: POC Glucose,Bedside 472 (70-110)
--- NOTE | 2022-10-30 07:30 | HMH.PHAINT1 ---
Pharmacy Intervention Comments: Home medication list verified using external fill history from outside pharmacy and med list from recent discharge.
--- NOTE | 2022-10-30 07:58 | SW/DCPLANNER ---
Addendum entered by Tiny Grullon 11/01/22 13:44: I have updated Edilia newman/ Loan Rahman that this patient will discharge today. Addendum entered by Tiny Galt 10/31/22 15:01: Edilia newman/ Loan Rahman stated that wound vac will be at facility by 11AM tomorrow. Addendum entered by Tiny Galt 10/31/22 11:25: I have updated Edilia newman/ Loan Rahman that the plan for this patient is to return to [place] tomorrow and will need a wound vac once he returns. Original Note: Patient currently resides at [facility] level of care. I will continue to follow up with Edilia until patient is medically stable for discharge. Discharge date is unknown at this time.
--- NOTE | 2022-10-30 08:35 | EXP.SURG.CON ---
History of Present Illness *Admission Date: 10/30/22 *History of present illness: Asked to see patient regarding bleeding from wound. Forwarded from admission History & Physical: Mr. White is a 81-year-old male who is a resident of a long-term care facility. He was just discharged from the facility on 10/24 where he was seen for a necrotic decubitus ulcer. He underwent I/D of the ulceration and was discharged to the [place] on oral antibiotics and wound care. He presents back to [facility] due to bleeding at the decibitus ulcer site. Per notes and discussion with the patient and ER Physician the facility had issues with the wound saturating the dressings so he was sent back to the ER for evaluation. In the ER the patient had the wounds packed, CBC showed a WBC that was slightly elevated at 13K, On CMP creatinine was slightly elevated at 1.30. The patient was discharged on oral antibiotic therapy which is still continued. The patient was started on iv fluids. The Surgeon will be consulted for evaluation and any further recommendations. Patient is on Xarelto. He underwent debridement of necrotic tissue with Dr. Azar Loya in the emergency department on 10/23/2022. Patient reportedly had some pulsatile bleeding upon inspection of the wound shortly after admission. [facility] Disclaimer: The information contained in this section may have been updated after the patient was seen, as this information can be updated by other users. Medical History Abnormal electrocardiography ANJALI (acute kidney injury) Arthritis Atrial flutter CAD (coronary artery disease) CAD in [place] artery Cardiomyopathy CKD (chronic kidney disease) stage 3, GFR 30-59 ml/min Diabetes mellitus Dyspnea Edema HTN (hypertension) Hyperlipidemia Left bundle branch block (LBBB) Overweight (BMI 25.0-29.9) Peripheral neuropathy Wound of foot Surgical History History of cardiac cath History of right knee surgery Family History Other No significant family history Social History Smoking Status: Former smoker alcohol intake: never substance use type: denies use current occupational status: retired Travel in the last 8 weeks: None housing: long-term caffeine: No Review of Systems *Neurologic Neurologic: Reports system reviewed and no additional complaints, except as documented Meds Home Medications and Allergies Home Medications Medication Instructions Recorded Confirmed Type atorvastatin 10 mg tablet 10 mg PO DAILY Cholesterol 04/03/19 10/29/22 History loratadine 10 mg tablet 10 mg PO DAILY Allergy symptoms 04/03/19 10/29/22 History omeprazole 20 mg capsule,delayed 20 mg PO DAILY Acid reflux 04/03/19 10/29/22 History release aspirin 81 mg tablet,delayed 81 mg PO DAILY Heart disease 05/01/21 10/29/22 History release (Adult Low Dose Aspirin) empagliflozin 10 mg tablet 10 mg PO DAILY Diabetes 09/20/21 10/29/22 History (Jardiance) lactulose 10 gram/15 mL oral 30 ml PO DAILYP PRN Constipation 09/20/21 10/29/22 History solution sennosides 8.6 mg tablet (senna) 8.6 mg PO DAILYP PRN Constipation 09/20/21 10/29/22 History furosemide 20 mg tablet 20 mg PO DAILY Fluid 09/22/21 10/29/22 History loperamide 2 mg capsule 2 mg PO Q4HP PRN Diarrhea 10/03/21 10/29/22 History ondansetron HCl 4 mg tablet 4 mg PO Q6HP PRN Nausea And 09/11/22 10/29/22 History Vomiting lisinopril 20 mg tablet 20 mg PO DAILY High blood pressure 09/25/22 10/29/22 History rivaroxaban 15 mg tablet (Xarelto) 15 mg PO QPMWITHMEAL Blood 09/25/22 10/29/22 History thinner-AF
[2022-10-30 08:49] LABS: Basophils % 0.1 % (0.1-2.0); Eosinophils # 0.1 K/mm3 (0.0-0.4); Eosinophils % 0.3 % (0.1-12.0); Hematocrit 29.2 % (42.0-52.0); Lymphocytes # 2.1 K/mm3 (0.7-4.5); Lymphocytes % 12.3 % (10-50); Mean Corpuscular HGB Conc 29.4 g/dL (31.8-35.4); Mean Corpuscular Hemoglobin 27.1 pg (27.0-31.2); Mean Corpuscular Volume 92.2 fl (80-94); Mean Platelet Volume 9.3 fl (7.4-10.4); Monocytes % 5.7 % (1.7-9.3); Neutrophils # 13.8 K/mm3 (1.8-7.8); Neutrophils % 81.6 % (37.0-80.0); Platelet Count 580 K/mm3 (142-424); Red Blood Count 3.17 M/mm3 (4.60-6.20); Red Cell Distribution Width 15.2 % (11.5-17.5); White Blood Count 16.9 K/mm3 (4.8-10.8)
[2022-10-30 08:52] LABS: Anion Gap 15.9 mEq/L (5-15); Blood Urea Nitrogen 33 mg/dl (9-20); Calcium 7.2 mg/dl (8.4-10.2); Carbon Dioxide 20 mmol/L (22.0-30.0); Chloride 104 mmol/L (98-107); Creatinine Clearance Estimated 38 mL/min (50-200); Estimated Glomerular Filt Rate 49 ml/min (>60); GFR (African American) 59 ML/MIN (>60); Glucose 367 mg/dl (74-100); Potassium 3.9 mmoL/L (3.5-5.1); Sodium 136 mmol/L (136-145)
[2022-10-30 09:02] LABS: MANUAL DIFFERENTIAL MANUAL DIFFERENTIAL (MANUAL DIFF)
[2022-10-30 09:17] LABS: Hemoglobin 8.7 g/dL (14.1-18.0)
--- NOTE | 2022-10-30 09:20 | PC.NURSE ---
0730: DR. MACKAY AT BEDSIDE FOR CONSULT. DRESSING REMOVED. IT WAS NOTED TO BE SATURATED IN BLOOD. DR. MACKAY REMOVED A LARGE CLOT FROM THE AREA AND NOTED WOUND BED TO STILL BE ACTIVELY BLEEDING. DR. MACKAY APPLIED PRESSURE TO AREA THEN PLACED SURGICEL AND COVERED WITH SURGIFOAM. KERLIX PACKED OVER SURGIFOAM. 4X4'S AND ABD PAD APPLIED OVER DRESSING AND TAPED. PATIENT TOLERATED DRESSING CHANGE WELL. PATIENT TURNED AND REPOSITIONED WITH WEDGE ON RIGHT SIDE FOR COMFORT. PATIENT REMAINS ON WAFFLE MATTRESS OVERLAY. NOTIFIED PATT HUMPHRIES RN OF DRESSING CHANGE.
--- NOTE | 2022-10-30 09:41 | DIET.NUTRFU ---
RD reviewed patient, he is at high risk secondary to skin breakdown. He has multiple pressure areas. David score of 10. Was just here, lives at [place]. He is aware he needs extra calories, drinks milk with meals and cottage cheese in place of desserts. He was also started on prostat AWC BID last admit, will restart. Also added glucerna in BID for extra protein. Renal labs are WNL. Will monitor wts, todays wt indicates a loss from last admit.
[2022-10-30 09:52] LABS: Lymphocytes % 17 % (10-50); Monocytes % 5 % (2-9); Neutrophils % 78 % (42-76); Platelet Estimate Moderate Increase; Total Cells Counted 100
[2022-10-30 09:53] LABS: RBC Morphology Normal
--- NOTE | 2022-10-30 10:42 | PC.NURSE ---
Per Dr. Mason, pt okay to come out SD status.
[2022-10-30 16:36] LABS: POC Glucose,Bedside 365 (70-110)
[2022-10-30 17:22] LABS: POC Glucose,Bedside 390 (70-110)
--- NOTE | 2022-10-30 17:45 | PC.NURSE ---
pt has pressure relieving mattress on his bed for the whole shift. pt has also been turned Q2 hrs with wedge to relieve pressure from wound and to prevent further damage to skin integrity.
[2022-10-30 22:05] LABS: POC Glucose,Bedside 247 (70-110)
[2022-10-31] VITALS (27 sets, daily range): BP systolic 80–121; BP diastolic 40–85; PULSE 55–64; RESP 16–21; TEMP 36.3–37.2; O2SAT 94–99; BMI 21.8
--- NOTE | 2022-10-31 03:56 | PC.NURSE ---
PT HAS HAD LOW BP'S THIS SHIFT, 80'S OVER 40-50'S. LILIBETH ADORNO MADE AWARE. ORDERED NS @ 250ML/HR. PT HAS HAD NO COMPLAINTS THIS SHIFT. HAS RESTED WELL. OTHER VITAL SIGNS ARE STABLE. PT HAS BEEN TURNED REQUESTED AND Q2HRS. WAFFLE MATTRESS AND WEDGE REMAINS IN PLACE TO AID IN TURNING PT AND PREVENTING WORSENING OF SACRAL WOUND. DRESSING IN PLACE. PT AWARE OF POSSIBLE WOUND VAC PLACEMENT TODAY. CALL NOWAK WITHIN REACH.
--- NOTE | 2022-10-31 04:21 | PC.NURSE ---
NOTIFIED CASHIERS SUPERVISOR OF PT'S CONTINUED LOW BP. CASHIERS SUPERVISOR ORDER MIDODRINE 5MG PO ONCE.
[2022-10-31 05:54] LABS: POC Glucose,Bedside 287 (70-110)
[2022-10-31 06:23] LABS: Alanine Aminotransferase 37 U/L (12-78); Albumin Level 1.7 g/dl (3.5-5.0); Albumin/Globulin Ratio 0.7 (1.1-1.8); Alkaline Phosphatase 52 U/L (38-126); Anion Gap 12.8 mEq/L (5-15); Aspartate Amino Transferase 27 U/L (17-59); Bilirubin,Total 0.2 mg/dl (0.2-1.3); Blood Urea Nitrogen 44 mg/dl (9-20); Calcium 6.8 mg/dl (8.4-10.2); Carbon Dioxide 18 mmol/L (22.0-30.0); Chloride 111 mmol/L (98-107); Creatinine Clearance Estimated 45 mL/min (50-200); Estimated Glomerular Filt Rate 58 ml/min (>60); GFR (African American) 70 ML/MIN (>60); Globulin 2.6 g/dL (1.3-3.2); Glucose 230 mg/dl (74-100); Magnesium 1.8 mg/dl (1.6-2.3); Potassium 3.8 mmoL/L (3.5-5.1); Sodium 138 mmol/L (136-145); Total Protein,Serum 4.3 g/dl (6.3-8.2)
[2022-10-31 06:33] LABS: Basophils # 0.1 K/mm3 (0-0.2); Basophils % 0.5 % (0.1-2.0); Eosinophils # 0.3 K/mm3 (0.0-0.4); Eosinophils % 2.7 % (0.1-12.0); Hematocrit 24.6 % (42.0-52.0); Lymphocytes # 1.8 K/mm3 (0.7-4.5); Lymphocytes % 16.7 % (10-50); Mean Corpuscular HGB Conc 29.7 g/dL (31.8-35.4); Mean Corpuscular Hemoglobin 28.4 pg (27.0-31.2); Mean Corpuscular Volume 95.6 fl (80-94); Mean Platelet Volume 9.3 fl (7.4-10.4); Monocytes # 0.7 K/mm3 (0.1-1.0); Monocytes % 6.9 % (1.7-9.3); Neutrophils # 7.7 K/mm3 (1.8-7.8); Neutrophils % 73.2 % (37.0-80.0); Platelet Count 434 K/mm3 (142-424); Red Blood Count 2.57 M/mm3 (4.60-6.20); Red Cell Distribution Width 15.5 % (11.5-17.5); White Blood Count 10.5 K/mm3 (4.8-10.8)
[2022-10-31 06:35] LABS: Hemoglobin 7.3 g/dL (14.1-18.0)
--- NOTE | 2022-10-31 09:00 | PC.NURSE ---
Dr. Eagle, Dr. Mason and Collins, CERTIFIED RETINAL ANGIOGRAPHER at bedside for coccyx/glute dressing change. OG dressing CDI. Wound not actively bleeding, drainage noted on dressing. Wound redressed, packed with kerlix, covered with 4x4s and an ABD pad, secured with foam tape. Pt had a small soft BM.
--- NOTE | 2022-10-31 09:20 | PC.NURSE ---
patient is a Q2HRS turn and has a pressure reliving mattress on his bed to prevent further damage to skin integrity.
--- NOTE | 2022-10-31 09:52 | DIET.NUTRFU ---
Addendum entered by Eva Duran RD, LD 10/31/22 15:14: saw patient today, he has been drinking the glucerna BID, he said it is available at [facility] and will request to continue. He is taking the prostat AWC BID for wound healing. Tray extras include milk and cottage cheese he is enjoying and consuming at 100%. Wound care is seeing him and sizing a wound vac today. Anticipate discharge back to [place] tomorrow. Meal intake for lunch was 75% Original Note: RD consulted for malnutrition, supplement recommendations. Patient is tolerating diabetic diet with fair meal intake. He also has glucerna ordered BID, milk with meals and cottage cheese with dinner to help with increased caloric and protein needs to promote healing. Wt is done this admit, todays weight is 65kg, on 10/08 was 70kg. Based on limited mobility, change in weight and BMI of 21 he does meet severe PCM, provider notified
--- NOTE | 2022-10-31 11:41 | EXP.SURG.PN ---
Subjective Narrative: No new issues. Patient did undergo dressing change without incidence. Has shown not unexpected decrease in hemoglobin. Exam Data for Last 24 hours Vital signs and Labs for Last 24 Hours: Temp Pulse Resp BP Pulse Ox 98.3 F 56 L 17 94/43 L 98 10/31/22 11:33 10/31/22 11:33 10/31/22 11:33 10/31/22 11:33 10/31/22 11:33 Laboratory Results - last 24 hr 10/30/22 13:32: POC Glucose 365 H* 10/30/22 17:15: POC Glucose 390 H* 10/30/22 21:28: POC Glucose 247 H 10/31/22 05:27: POC Glucose 287 H 10/31/22 05:30: WBC 10.5 D, RBC 2.57 L, Hgb 7.3 L D, Hct 24.6 L, MCV 95.6 H, MCH 28.4, MCHC 29.7 L, RDW 15.5, Plt Count 434 H D, MPV 9.3, Neut % (Auto) 73.2, Lymph % (Auto) 16.7, [place] % (Auto) 6.9, Eos % (Auto) 2.7, Baso % (Auto) 0.5, Neut # (Auto) 7.7, Lymph # (Auto) 1.8, [place] # (Auto) 0.7, Eos # (Auto) 0.3, Baso # (Auto) 0.1 10/31/22 05:30: Sodium 138, Potassium 3.8, Chloride 111 H, Carbon Dioxide 18 L, Anion Gap 12.8, BUN 44 H D, Creatinine 1.20, Estimated Creat Clear 45, Estimated GFR 58 L, Est GFR ( Amer) 70, Glucose 230 H D, Calcium 6.8 L, Magnesium 1.8, Total Bilirubin 0.2, AST 27 D, ALT 37 D, Alkaline Phosphatase 52, Total Protein 4.3 L D, Albumin 1.7 L D, Globulin 2.6, Albumin/Globulin Ratio 0.7 L 10/31/22 07:25: Blood Type A Positive, Antibody Screen Negative, Crossmatch (AHG) See Detail I & O for Last 24 hours: Intake & Output 06/11/23 06/12/23 06/13/23 06/14/23 11:59 11:59 11:59 11:59 Intake Total 782 / 782 3364 / 3364 Output Total 400 / 400 1225 / 1225 Balance 382 / 382 2139 / 2139 Weight 139 lb 2.845 oz 144 lb 4 oz *Routine Skin Exam Comments: Wound relatively clean without evidence of active bleeding Progress Note: A&P Assessment and plan (1) Decubitus ulcer: Status: Acute Assessment and plan: Patient to receive transfusion today and assess response. No evidence of any ongoing hemorrhage from debrided wound. We will see if wound care can place negative pressure wound therapy dressing today. (2) ANJALI (acute kidney injury): Status: Acute (3) Atrial fibrillation: Status: Acute (4) Diabetes: Status: Acute
[2022-10-31 12:14] LABS: POC Glucose,Bedside 333 (70-110)
--- NOTE | 2022-10-31 13:22 | EXP.ACUTE.PN ---
Subjective *Date: 10/31/22 *Time: 13:22 Interval history: Patient feeling well at morning. Denies any nausea or vomiting. Tolerating p.o. intake. Had some bleeding necessitating changing her dressing overnight. Pain stable. Denies any fevers or chills. No significant drainage on morning evaluation. Medical Exam Vital signs and Labs for Last 24 Hours: Vital Signs Temp Pulse Pulse Resp BP BP Pulse Ox 10/31/22 12:23 98.2 F 61 20 98/40 L 98 10/31/22 12:08 97.9 F 56 L 19 108/52 L 99 10/31/22 11:53 98.6 F 58 L 19 98/48 L 98 10/31/22 11:38 98.4 F 56 L 19 91/43 L 97 10/31/22 11:33 98.3 F 56 L 17 94/43 L 98 10/31/22 11:28 98.6 F 55 L 16 92/45 L 99 10/31/22 11:23 98.4 F 56 L 17 110/50 L 99 10/31/22 11:00 98.4 F 57 L 19 97/49 L 99 10/31/22 08:00 97.8 F 57 L 18 88/43 L 96 10/31/22 05:17 97/44 L 10/31/22 04:00 98.8 F 60 18 80/44 L 94 L 10/31/22 00:00 97.4 F L 59 L 18 88/50 L 96 10/30/22 20:24 84/40 L 10/30/22 20:00 97.5 F L 59 L 18 80/44 L 99 10/30/22 16:00 97.8 F 61 16 86/50 L 97 Intake and Output 10/30/22 10/31/22 10/31/22 23:59 07:59 15:59 Intake Total 480 / 1602 100 / 2644 2544 / 2644 Output Total 500 / 900 325 / 725 400 / 725 Balance - -1918 Intake: Intake, Oral Amount 480 / 1080 240 / 240 Intake, Other Amount 2304 / 2304 Intake, Total IV Amount 100 / 100 Cefepime HCl 2 gm In 0.9 % 100 / 100 Sodium Chloride 100 ml @ 200 mls/hr IV Q12H [facility] Rx#:[id number] Intake (Blood Product) Amt 0 / 0 Red Blood Cells Unit 0 / 0 [id number] Output: Output, Urine Amount 500 / 900 325 / 725 400 / 725 Other: Intake, Other Source Saline Solution Number of Unmeasured Voids 0 0 Number of Bowel Movements 1 Weight 65.431 kg Patient Weight 10/31/22 23:59 Weight 65.431 kg Laboratory Results - last 24 hr 10/30/22 13:32: POC Glucose 365 H* 10/30/22 17:15: POC Glucose 390 H* 10/30/22 21:28: POC Glucose 247 H 10/31/22 05:27: POC Glucose 287 H 10/31/22 05:30: WBC 10.5 D, RBC 2.57 L, Hgb 7.3 L D, Hct 24.6 L, MCV 95.6 H, MCH 28.4, MCHC 29.7 L, RDW 15.5, Plt Count 434 H D, MPV 9.3, Neut % (Auto) 73.2, Lymph % (Auto) 16.7, [place] % (Auto) 6.9, Eos % (Auto) 2.7, Baso % (Auto) 0.5, Neut # (Auto) 7.7, Lymph # (Auto) 1.8, [place] # (Auto) 0.7, Eos # (Auto) 0.3, Baso # (Auto) 0.1 10/31/22 05:30: Sodium 138, Potassium 3.8, Chloride 111 H, Carbon Dioxide 18 L, Anion Gap 12.8, BUN 44 H D, Creatinine 1.20, Estimated Creat Clear 45, Estimated GFR 58 L, Est GFR ( Amer) 70, Glucose 230 H D, Calcium 6.8 L, Magnesium 1.8, Total Bilirubin 0.2, AST 27 D, ALT 37 D, Alkaline Phosphatase 52, Total Protein 4.3 L D, Albumin 1.7 L D, Globulin 2.6, Albumin/Globulin Ratio 0.7 L 10/31/22 07:25: Blood Type A Positive, Antibody Screen Negative, Crossmatch (AHG) See Detail 10/31/22 12:00: POC Glucose 333 H* I & O for Labs for Last 24 Hours: Intake & Output 10/28/22 10/29/22 10/30/2223 23:59 23:59 23:59 23:59 Intake Total 1502 / 1602 2644 / 2644 Output Total 900 / 900 725 / 725 Balance 602 / 702 1918 / 1918 Weight 68.039 kg 63.13 kg 65.431 kg Constitutional: Present no acute distress, thin and chronically ill appearing Head: Present atraumatic Eyes: Present as per HPI ENT: Present normal exam Comment:: poor dentition Neck: Present normal inspection and full ROM Respiratory: Present CTA bilaterally; Absent accessory muscle use Cardiac: Present Reg Rate and Rhythm and S1/S2 GI: Present soft and normal bowel sounds; Absent tenderness (male): Present deferred Extremities: Absent normal inspection Skin: Present intact and wounds (Surgical dressings in place) Comment:: Large 4 inch decubitus sacral ulcer status post debridement last visit. Base healthy. No active bleeding. No foul drainage. Neuro: Present alert, awake and oriented x
--- NOTE | 2022-10-31 15:22 | HMH.PTWOUND ---
Rehab Inpt Wound Evaluation Rehab IP Wound Evaluation Start: 10/31/22 09:13 Freq: ONCE Status: Active Protocol: Document 10/31/22 15:14 [email or web address] (Rec: 10/31/22 15:21 PHORNE [id number]) Rehab PT Wound Assessment Patient Status Premedicated Prior to Dressing Change Yes Subjective Subjective 81 yowm adm to [facility] from [facility] with increased bleeding from sacral decubitus ~ 1 wk S /P OR debridement. Pt has multiple chronic medical problems and is essential immobile at the [facility] at baseline. Bleeding was controlled with Surgicel and appropriate dressings over the past 24 hrs and now wound bed is appropriate for VAC dressing placement. Wound Sacrum Wound Type Pressure Ulcer Is This a Chronic Wound Yes Wound Staging Stage III Query Text:Stage I - Unbroken, red skin, no blanching. Stage II - Skin broken, superficial skin loss involving epidermis alone or also dermis. Partial loss of skin layers. Stage III - Pressure area involves epidermis, dermis and subcutaneous tissue, full thickness skin loss. Stage IV - Pressure area involves epidermis, subcutaneous tissue, bone and other supportive tissue. Full thickness skin loss with extensive destruction of underlying tissue and structures. Wound Length (cm) 9.3 Wound Width (cm) 8.2 Wound Depth (cm) 2.1 Wound Bed Appearance Beefy Red,Yellow Percentage Granulated (%) 75 Wound Margins Description Well Defined Undermining Position 12 o'clock Undermining Length (cm) 1.5 Wound Drainage Description Serosanguineous Drainage Amount Moderate Wound Topical Solution/Irrigant Saline Irrigant Packing Type Woundvac Sponge Primary Dressing Transparent Drape Wound Debridement Method Mechanical Wound Debridement Amount of Tissue Minimal Removed Dressing Change Patient Tolerance Tolerated Well Left Buttock Wound Type Pressure Ulcer Is This a Chronic Wound Yes Wound Staging Stage III Query Text:Stage I - Unbroken, red skin, no blanching. Stage II - Skin broken, superficial skin loss involving epidermis alone or also dermis.
[2022-10-31 20:19] LABS: Hematocrit 30.1 % (42.0-52.0)
[2022-10-31 20:44] LABS: Hemoglobin 9.8 g/dL (14.1-18.0)
[2022-10-31 21:51] LABS: POC Glucose,Bedside 409 (70-110)
[2022-10-31 21:51] LABS: POC Glucose,Bedside 328 (70-110)
[2022-11-01] VITALS: BP 92/42; PULSE 57; RESP 16; TEMP 38.1; O2SAT 98
[2022-11-01 04:00] VITALS: BP 99/46; PULSE 54; RESP 18; TEMP 37.2; O2SAT 98; BMI 22.7
--- NOTE | 2022-11-01 04:04 | PC.NURSE ---
NO ACUTE CHANGES THIS SHIFT. VSS. REMAINS ON ROOM AIR. HAS RESTED WELL. NO C/O PAIN THIS SHIFT. WOUND VAC REMAINS IN PLACE. CALL NOWAK WITHIN REACH.
[2022-11-01 05:30] LABS: POC Glucose,Bedside 270 (70-110)
[2022-11-01 06:14] LABS: Chloride 115 mmol/L (98-107); Potassium 4.1 mmoL/L (3.5-5.1); Sodium 138 mmol/L (136-145)
[2022-11-01 06:16] LABS: Blood Urea Nitrogen 46 mg/dl (9-20); Creatinine Clearance Estimated 52 mL/min (50-200); Estimated Glomerular Filt Rate 64 ml/min (>60); GFR (African American) 78 ML/MIN (>60)
[2022-11-01 06:17] LABS: Alanine Aminotransferase 35 U/L (12-78); Albumin Level 2.1 g/dl (3.5-5.0); Albumin/Globulin Ratio 0.7 (1.1-1.8); Alkaline Phosphatase 63 U/L (38-126); Anion Gap 9.1 mEq/L (5-15); Aspartate Amino Transferase 29 U/L (17-59); Bilirubin,Total 0.3 mg/dl (0.2-1.3); Carbon Dioxide 18 mmol/L (22.0-30.0); Total Protein,Serum 5.1 g/dl (6.3-8.2)
[2022-11-01 06:18] LABS: Calcium 7.3 mg/dl (8.4-10.2); Glucose 208 mg/dl (74-100)
[2022-11-01 06:19] LABS: Basophils # 0.1 K/mm3 (0-0.2); Basophils % 0.4 % (0.1-2.0); Eosinophils # 0.3 K/mm3 (0.0-0.4); Eosinophils % 2.3 % (0.1-12.0); Hematocrit 31.5 % (42.0-52.0); Hemoglobin 9.8 g/dL (14.1-18.0); Lymphocytes # 2.3 K/mm3 (0.7-4.5); Lymphocytes % 17.7 % (10-50); Mean Corpuscular HGB Conc 31.2 g/dL (31.8-35.4); Mean Corpuscular Hemoglobin 27.4 pg (27.0-31.2); Mean Platelet Volume 8.4 fl (7.4-10.4); Monocytes # 0.9 K/mm3 (0.1-1.0); Monocytes % 6.8 % (1.7-9.3); Neutrophils # 9.6 K/mm3 (1.8-7.8); Neutrophils % 72.8 % (37.0-80.0); Platelet Count 434 K/mm3 (142-424); Red Blood Count 3.58 M/mm3 (4.60-6.20); Red Cell Distribution Width 16.2 % (11.5-17.5); White Blood Count 13.2 K/mm3 (4.8-10.8)
[2022-11-01 08:00] VITALS: BP 121/58; PULSE 58; RESP 18; TEMP 36.7; O2SAT 96
--- NOTE | 2022-11-01 08:12 | P.PN_ITS ---
Subjective Narrative: No new issues. Transfused 2 units packed red blood cells yesterday with good response. No evidence of any ongoing bleeding. Exam Data for Last 24 hours Vital signs and Labs for Last 24 Hours: Temp Pulse Resp BP Pulse Ox 98.9 F 54 L 18 99/46 L 98 11/01/22 04:00 11/01/22 04:00 11/01/22 04:00 11/01/22 04:00 11/01/22 04:00 Laboratory Results - last 24 hr 10/31/22 07:25: Blood Type A Positive, Antibody Screen Negative, Crossmatch (AHG) See Detail 10/31/22 12:00: POC Glucose 333 H* 10/31/22 16:28: POC Glucose 328 H* 10/31/22 20:14: Hgb 9.8 L D, Hct 30.1 L 10/31/22 20:54: POC Glucose 409 H* 11/01/22 05:17: POC Glucose 270 H 11/01/22 05:41: Sodium 138, Potassium 4.1, Chloride 115 H, Carbon Dioxide 18 L, Anion Gap 9.1, BUN 46 H, Creatinine 1.10, Estimated Creat Clear 52, Estimated GFR 64, Est GFR ( Amer) 78, Glucose 208 H, Calcium 7.3 L, Total Bilirubin 0.3, AST 29, ALT 35, Alkaline Phosphatase 63, Total Protein 5.1 L, Albumin 2.1 L D, Globulin 3.0, Albumin/Globulin Ratio 0.7 L 11/01/22 05:41: WBC 13.2 H D, RBC 3.58 L D, Hgb 9.8 L, Hct 31.5 L, MCV 88.0, MCH 27.4, MCHC 31.2 L, RDW 16.2, Plt Count 434 H, MPV 8.4, Neut % (Auto) 72.8, Lymph % (Auto) 17.7, [place] % (Auto) 6.8, Eos % (Auto) 2.3, Baso % (Auto) 0.4, Neut # (Auto) 9.6 H, Lymph # (Auto) 2.3, [place] # (Auto) 0.9, Eos # (Auto) 0.3, Baso # (Auto) 0.1 11/01/22 05:41: Magnesium 2.0 D I & O for Last 24 hours: Intake & Output 10/29/22 10/30/22 10/31/22 11/01/22 11:59 11:59 11:59 11:59 Intake Total 782 / 782 3364 / 3364 1710 / 1710 Output Total 400 / 400 1225 / 1225 2300 / 2300 Balance 382 / 382 2139 / 2139 -590 / -590 Weight 139 lb 2.845 oz 144 lb 4 oz 150 lb *Routine Skin Exam Comments: Wound VAC in place but there is loss of seal with leakage above the anal area. Progress Note: A&P Assessment and plan (1) Decubitus ulcer: Status: Acute Assessment and plan: Replace VAC today with meticulous careful seal creation of posterior anal region. (2) ANJALI (acute kidney injury): Status: Acute (3) Atrial fibrillation: Status: Acute (4) Diabetes: Status: Acute (5) Anemia: Status: Acute (6) Severe protein-calorie malnutrition: Status: Acute
--- NOTE | 2022-11-01 11:00 | PC.NURSE ---
COURTESY TECH NOTE; ROUNDED ON PT 0900, ASSISTED NURSE TO CHANGE AND REPOSITION PT IN BED, MODERATE BOWEL MOVEMENT TYPE 6. PT DENIED NEED FOR ASSISTANCE WITH DRINK. CALL LIGHT WITHIN REACH, NO FURTHER REQUESTS AT THIS TIME MATILDE GALLAGHER
[2022-11-01 11:04] LABS: POC Glucose,Bedside 330 (70-110)
[2022-11-01 11:19] VITALS: BP 106/49; PULSE 56; RESP 18; TEMP 37; O2SAT 95
--- NOTE | 2022-11-01 12:19 | EXP.DC.SUM ---
General Admission date:: 10/30/22 Discharge date: 11/01/22 HPI HPI HPI: Mr. White is a 81-year-old male who is a resident of a long-term care facility.? He was just discharged from the facility on 10/24 where he was seen for a necrotic decubitus ulcer.? He underwent I/D of the ulceration and was discharged to the [place] on oral antibiotics and wound care.? He presents back to [facility] due to bleeding at the decibitus ulcer site.? Per notes and discussion with the patient and ER Physician the facility had issues with the wound saturating the dressings so he was sent back to the ER for evaluation.? In the ER the patient had the wounds packed, CBC showed a WBC that was slightly elevated at 13K, On CMP creatinine was slightly elevated at 1.30.? The patient was discharged on oral antibiotic therapy which is still continued.? The patient was started on iv fluids.? The Surgeon will be consulted for evaluation and any further recommendations.? Hospital Course Hospital Course Hospital Course: 81-year-old male with past medical history of Stage IV Decubitus Ulcer, Atrial Fibrillation on chronic anticoagulation, DM presents from [place] due to bleeding at Decubitus Ulcer Site. Hemostasis achieved with Surgicel. Wound VAC placed during admission. Patient necessitated transfusion. We will continue supplementation with Pro-Stat to improve chance of healing. Additionally holding patient's anticoagulation (Xarelto) for 1 week to decrease risk for bleeding from wound. Problems addressed during hospitalization as follows - Decubitus Ulcer -Acute on chronic anemia, secondary to blood loss Wound stable.? Surgery consulted, recommended wound VAC placement.? Dressing and wound evaluated on rounds daily. Wound consult was placed and placement of wound VAC during admission. Patient has been treated with IV cefepime during admission given previous wound culture positive for Proteus. Transition to Invanz on day of discharge for ease of dosing as an outpatient. Complete 7 days total of antibiotics. Had significant change in hemoglobin from 10.7 on admission to 7.3 this morning.? Secondary to blood loss from wound.? Transfused 2 units of red blood cells with improvement in hemoglobin to 9.8. Stable for 24 hours after transfusion. Repeat CBC in 1 week. Stable to return to assisted with wound VAC in place. Wound VAC will need sponge placed and sacral decubitus wound with bridge sponge to left gluteal ulcer. See wound care notes for full details. - ANJALI: Present on admission. Improved with fluid resuscitation. Hold diuretics. Needs repeat CBC and CMP in 1 week - Atrial Fibrilation Holding Bisoprolol due to hypotension, continue Amiodarone, hold Xarelto given bleeding from decubitus wound. Resume Xarelto in 1 week. - Diabetes: Treated with basal bolus regimen during admission. Resume home oral regimen at discharge. Have also initiated new basal insulin with glargine 30 units nightly based on patient's hyperglycemia during admission. Continue to monitor morning glucoses, if morning glucoses drop below 80, would recommend decreasing glargine. Severe protein calorie malnutrition -Nutrition consulted, appreciate their assistance in care.? Continue supplementation with Pro-Stat AWC -Complicates his ability for wound healing Stable for discharge back to nursing facility. Recommend wound VAC until sacral ulcer healed. Follow-up with surgery in the next 1 to 2 weeks for reevaluation. Exam Data for Last 24 hours Vital signs and Labs for Last 24 Hours: Temp Pulse Resp BP Pulse Ox 98.6 F 56 L 18 106/49 L 95 11/01/22 11:19 11/01/22 11:19 11/01/22 11:19 11/01/22 11:19 11/01/22 11:19 Laboratory Results - last 24 hr 10/31/22 07:25: Blood Type A Positive, Antibody Screen Negative, Crossmatch (AHG) See Detail 10/31/22 16:28: POC Glucose 328 H* 10/31/22 20:14: Hgb 9.8 L D, Hct 30.1 L 10/31/22 20:54: POC Glucose 409 H* 11/01/22 05:17: POC
--- NOTE | 2022-11-01 15:09 | PC.NURSE ---
DRY DRESSING APPLIED TO SACRAL WOUND BEFORE DISCHARGE. REPORT CALLED TO [facility]. TRANSPORTED BY AMBULANCE.
== END 2022-11-01 15:05 ==
LOC: ER 21:17 → 2ND 10-30 00:49
PROVIDERS: Nurse Practitioner Family; Admitting Provider Internal Medicine Adolescent Medicine; Emergency Provider Emergency Medicine; PCP Emergency Medicine; Visit Provider Internal Medicine Adolescent Medicine
DX: L89.154 Pressure ulcer of sacral region, stage 4 (principal); N17.9 Acute kidney failure, unspecified; I48.91 Unspecified atrial fibrillation; E11.22 Type 2 diabetes mellitus with diabetic chronic kidney disease; D64.9 Anemia, unspecified; E43 Unspecified severe protein-calorie malnutrition; Z68.22 Body mass index [BMI] 22.0-22.9, adult; N18.30 Chronic kidney disease, stage 3 unspecified; I42.9 Cardiomyopathy, unspecified; I12.9 Hypertensive chronic kidney disease with stage 1 through stage 4 chronic kidney disease, or unspecified chronic kidney disease; Z87.891 Personal history of nicotine dependence; Z79.01 Long term (current) use of anticoagulants; Z79.84 Long term (current) use of oral hypoglycemic drugs; D62 Acute posthemorrhagic anemia
CPT/HCPCS: G0378; 36415; 36430; 80048; 80053; 82009; 82962; 83735; 85007; 85014; 85018; 85025; 86850; 87636; 99285; C9803; J0696; J1335; P9016; U0003; U0005

== ENCOUNTER 2022-11-14 13:55 | Outpatient (CLI) | payer MEDICARE, OTHER, MEDICAID, SELFPAY | END 2022-11-14 14:00 | disposition home or self-care (01) | LOC: INF 13:56 | PROVIDERS: PCP Emergency Medicine; Visit Provider Surgery | DX: L89.154 Pressure ulcer of sacral region, stage 4 (principal); Z48.01 Encounter for change or removal of surgical wound dressing | CPT/HCPCS: G0463 ==

== ENCOUNTER 2022-11-21 11:29 | Outpatient (CLI) | payer MEDICARE, OTHER, MEDICAID, SELFPAY ==
--- NOTE | 2022-11-21 12:42 | PC.NURSE ---
1242-called report to thom at [facility] with dressing change instructions and next appointment.
== END 2022-11-21 12:24 | disposition home or self-care (01) ==
LOC: INF 11:30
PROVIDERS: PCP Emergency Medicine; Visit Provider Surgery
DX: L89.154 Pressure ulcer of sacral region, stage 4 (principal); Z48.00 Encounter for change or removal of nonsurgical wound dressing
CPT/HCPCS: G0463

== ENCOUNTER 2022-11-28 11:53 | Outpatient (CLI) | payer MEDICARE, OTHER, MEDICAID, SELFPAY | END 2022-11-28 12:57 | disposition home or self-care (01) | LOC: INF 11:59 | PROVIDERS: PCP Emergency Medicine; Visit Provider Surgery | DX: L89.154 Pressure ulcer of sacral region, stage 4 (principal); Z48.01 Encounter for change or removal of surgical wound dressing | CPT/HCPCS: G0463 ==

== ENCOUNTER 2022-11-29 09:23 | Day surgery (SDC) | payer MEDICARE, OTHER, MEDICAID, SELFPAY ==
[2022-11-29] VITALS (10 sets, daily range): BP systolic 118–150; BP diastolic 66–81; PULSE 74–90; RESP 14–18; TEMP 36.2–43; O2SAT 95–100; BMI 22.8
[2022-11-29 11:58] LABS: POC Glucose,Bedside 177 (70-110)
--- NOTE | 2022-11-29 12:29 | EXP.ANES.CKL ---
[facility] Disclaimer: The information contained in this section may have been updated after the patient was seen, as this information can be updated by other users. Medical History Abnormal electrocardiography ANJALI (acute kidney injury) Arthritis Atrial flutter CAD (coronary artery disease) CAD in [place] artery Cardiomyopathy CKD (chronic kidney disease) stage 3, GFR 30-59 ml/min Diabetes mellitus Dyspnea Edema HTN (hypertension) Hyperlipidemia Left bundle branch block (LBBB) Overweight (BMI 25.0-29.9) Peripheral neuropathy Wound of foot Surgical History History of cardiac cath History of right knee surgery Family History Other No significant family history Social History (Updated 11/29/22 @ 11:31 by Mell Merchant RN) Smoking Status: Former smoker alcohol intake: never substance use type: denies use current occupational status: retired Travel in the last 8 weeks: None housing: care home caffeine: No [facility] Anesthesia Checklist Patient Identification Patient Identification: Arm Band Structural Data Admitted From: Long-term Nursing Facility Planned Operative Procedure/s: Debridement of Sacral Decubitus Ulcer Consent for Planned Operative Procedure(s) Verified: Yes Verified Documents: Surgical Consent and History and Physical NPO Status Verified Time NPO: 00:00 Additional verifications Anesthesia Reactions: No Hx Blood Transfusions: Yes Blood Transfusion Reaction: No Airway Assessment C-Spine Mobility Assessed: Yes TMJ Mobility Assessed: Yes Dentition: Poor Dentition Neurological Assessment Level of Consciousness: Awake and Alert Anesthesia Plan Anesthesia Risk discussed: Yes Anesthesia Plan: Verified ASA Class: III Anesthesia Type: General
--- NOTE | 2022-11-29 16:18 | SUR.OPER ---
Elsa, BEHAVIORAL HEALTH RN updating pt family at this time
--- NOTE | 2022-11-29 16:34 | EXP.OP.NOTE ---
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 General anesthesia with laryngeal mask airway was achieved. He was transferred to the left lateral decubitus position. His sacral wound and surrounding region were prepped and draped in a sterile fashion. Electrocautery was utilized to transect necrotic skin, subcutaneous tissue, and some patchy areas of necrotic muscle circumferentially around the wound margin. Extensive marginal debridement with total tissue length just over 20 cm. Tissue depth 5 to 6 cm. Once all the necrotic tissue was debrided electrocautery was utilized to achieve hemostasis. The wound was packed with dry gauze and dressings were applied. Condition: stable Disposition: PACU Specimens:: Extensive necrotic tissue not sent for pathologic evaluation Complications:: No immediate
--- NOTE | 2022-11-29 16:49 | P.PNANES_ITS ---
[facility] Anesthesia Record Part I Anesthesia Record I Intake, IV Amount: 350 Estimated blood loss (mL): 100 Urine output (mL): 100 Blood Products used (#): none Blood Pressure: 136/71 SaO2: 98 Pulse Rate: 80 Respiratory Rate: 14 Temperature: 97.1 F Patient is:: Drowsy and Stable Stable to PACU at:: 16:40
[2022-11-29 17:10] LABS: POC Glucose,Bedside 157 (70-110)
--- NOTE | 2022-11-30 14:22 | P.PNANES_ITS ---
[facility] Anesthesia Record Part II Anesthesia Record Part II Discharge Time: 17:10 Destination: Surgical Day Care (OP Surgery) PACU nurse assessment reviewed?: Yes Patient Condition:: Good Anesthesia Complications:: None Swallowing reflex intact?: Yes Cyanosis?: No Blood Pressure: 133/76 Pulse Rate: 74 Temperature: 97.6 F Mental Status: Alert & Oriented Pain level:: 3 Nausea and/or vomitting:: None Intake, IV Amount: 0
[2022-11-30 14:23] VITALS: BP 133/76; PULSE 74; TEMP 36.4
== END 2022-11-29 17:49 | disposition home or self-care (01) ==
PROVIDERS: PCP Emergency Medicine; Visit Provider Surgery
DX: L89.154 Pressure ulcer of sacral region, stage 4 (principal); I96 Gangrene, not elsewhere classified
CPT/HCPCS: 11043; 11046; 82962; 96374; J1956

== ENCOUNTER 2022-12-07 09:55 | Outpatient (CLI) | payer MEDICARE, OTHER, MEDICAID, SELFPAY ==
--- NOTE | 2022-12-07 11:15 | PC.NURSE ---
1115-notified md about pts arrival; md on his way.
--- NOTE | 2022-12-07 12:45 | PC.NURSE ---
1245-called and gave report to noam at [facility].
== END 2022-12-07 12:15 | disposition home or self-care (01) ==
PROVIDERS: PCP Emergency Medicine; Visit Provider Emergency Medicine
DX: J39.2 Other diseases of pharynx (principal)
CPT/HCPCS: G0463